=== PATIENT | female | born 1935 | race Caucasian/White ===

== ENCOUNTER 2019-09-27 18:14 | Emergency (ER) | payer OTHER ==
[2019-09-27 19:00] LABS: Urine Bacteria 20-50 /HPF (<20); Urine RBC <5 /HPF (NONE SEEN)
[2019-09-27 19:01] LABS: Urine Amorphous Sediment 1+ /HPF (NONE SEEN); Urine Culture Reflex Order NOT NEEDED
--- NOTE | 2019-09-27 19:28 | EDPHYS ---
Physician Documentation [facility] Name: Kyung Bonilla Age: 83 yrs Sex: Female : 1935 Arrival Date: 09/27/2019 Time: 18:17 Bed 2 Private MD: ED Physician Jone Wise HPI: 09/27 18:33 This 83 yrs old Female presents to ER via Ambulatory with complaints of snw Urinary Problem. 18:33 Onset: The symptoms/episode began/occurred suddenly, 2 day(s) ago, and became snw persistent. Associated signs and symptoms: Pertinent positives: dysuria, Pertinent negatives: abdominal pain, constipation, fever. Modifying factors: The patient symptoms are alleviated by nothing. The patient has not experienced similar symptoms in the past. pt just got out of [facility] for TIA, no urethral instrumentation. pt from [place] but staying in town with her Daughter. Historical: - Allergies: 18:30 No Known Allergies; la1 - PMHx: 18:30 Hypertension; TIA; la1 - Immunization history:: Adult Immunizations up to date. - Social history:: Smoking status: Patient/guardian denies using tobacco. - Ebola Screening: : No symptoms or risks identified at this time. ROS: 18:32 Constitutional: Negative for fever, chills, and weight loss, Eyes: Negative for injury, snw pain, redness, and discharge, ENT: Negative for injury, pain, and discharge, Neck: Negative for injury, pain, and swelling, Cardiovascular: Negative for chest pain, palpitations, and edema, Respiratory: Negative for shortness of breath, cough, wheezing, and pleuritic chest pain, Abdomen/GI: Negative for abdominal pain, nausea, vomiting, diarrhea, and constipation, Back: Negative for injury and pain, MS/Extremity: Negative for injury and deformity, Skin: Negative for injury, rash, and discoloration, Neuro: Negative for headache, weakness, numbness, tingling, and seizure. 18:32 : Positive for urinary symptoms, urinary frequency, small amounts, burning with urination. Exam: 18:32 Constitutional: This is a well developed, well nourished patient who is awake, alert, snw and in no acute distress. Head/Face: Normocephalic, atraumatic. Eyes: Pupils equal round and reactive to light, extra-ocular motions intact. Lids and lashes normal. Conjunctiva and sclera are non-icteric and not injected. Cornea within normal limits. Periorbital areas with no swelling, redness, or edema. ENT: Nares patent. No nasal discharge, no septal abnormalities noted. Tympanic membranes are normal and external auditory canals are clear. Oropharynx with no redness, swelling, or masses, exudates, or evidence of obstruction, uvula midline. Mucous membranes moist. Neck: Trachea midline, no thyromegaly or masses palpated, and no cervical lymphadenopathy. Supple, full range of motion without nuchal rigidity, or vertebral point tenderness. No Meningismus. Chest/axilla: Normal chest wall appearance and motion. Nontender with no deformity. No lesions are appreciated. Cardiovascular: Regular rate and rhythm with a normal S1 and S2. No gallops, murmurs, or rubs. Normal PMI, no JVD. No pulse deficits. Respiratory: Lungs have equal breath sounds bilaterally, clear to auscultation and percussion. No rales, rhonchi or wheezes noted. No increased work of breathing, no retractions or nasal flaring. Abdomen/GI: Soft, non-tender, with normal bowel sounds. No distension or tympany. No guarding or rebound. No evidence of tenderness throughout. Back: No spinal tenderness. No costovertebral tenderness. Full range of motion. Skin: Warm, dry with normal turgor. Normal color with no rashes, no lesions, and no evidence of cellulitis. MS/ Extremity: Pulses equal, no cyanosis. Neurovascular intact. Full, normal range of motion. Neuro: Awake and alert, GCS 15, oriented to person, place, time, and situation. Cranial nerves II-XII grossly intact. Motor strength 5/5 in all extremities. Sensory grossly intact. Cerebellar exam normal. Normal gait. Psych: Awake, alert, with orientation to person, place and time. Behavior, mood, and affect are within normal limits. Vital Signs: 18:30 BP 158 / 86; Pulse 94; Resp 16; Temp 97.7; Pulse Ox 98% on R/A; la1 MDM: 18:35 Patient medically screened. snw 19:43 Data reviewed: vital signs, nurses notes. Data interpreted: Pulse oximetry: on room air snw is 98 %. Interpretation: normal. Counseling: I had a detailed discussion with the patient and/or guardian regarding: the historical points, exam findings, and any diagnostic results supporting the discharge/admit diagnosis, lab results, the need for outpatient follow up, to return to the emergency department if symptoms worsen or persist or if there are any questions or concerns that arise at home. Special discussion: Based on the history and exam findings, there is no indication for further emergent testing or inpatient evaluation. I discussed with the patient/guardian the need to see the primary care provider for further evaluation of the symptoms. 09/27 18:35 Order name: Urine Culture snw 09/27 18:35 Order name: Urine Microscopic Only; Complete Time: 19:26 snw 09/27 18:35 Order name: Urine Dipstick-Ancillary (obtain specimen); Complete Time: 19:29 snw 09/27 19:44 Order name: Urine Dipstick--Ancillary (enter results); Complete Time: 19:54 sp Administered Medications: 19:45 Drug: Rocephin (cefTRIAXone) 1 grams Route: IM; Site: left gluteus; lp1 20:43 Follow up: Response: No adverse reaction lp1 Disposition: 09/28 07:11 Co-signature as Attending Physician, Jone Wise MD. rn Disposition: 09/27/19 19:27 Discharged to Home. Impression: Urinary tract infection, site not specified. - Condition is Stable. - Discharge Instructions: Hypertension, Urinary Tract Infection, Adult, Rehydration, Elderly. - Prescriptions for Augmentin 875- 125 mg Oral Tablet - take 1 tablet by ORAL route every 12 hours for 10 days; 20 tablet. - Medication Reconciliation Form, Thank You Letter, Antibiotic Education, Prescription Opioid Use form. - Follow up: Private Physician; When: 2 - 3 days; Reason: Recheck today's complaints, Continuance of care, Re-evaluation by your physician. Follow up: Emergency Department; When: As needed; Reason: Worsening of condition. Signatures: Dispatcher [employer] EDMS Sadia Maharaj, [employer]-C [employer]-Csnw Jone Wise MD MD rn Pena, Laura, RN RN lp1 Jacob Martinez RN RN la1 Corrections: (The following items were deleted from the chart) 09/27 20:43 19:27 09/27/2019 19:27 Discharged to Home. Impression: Urinary tract infection, site lp1 not specified. Condition is Stable. Forms are Medication Reconciliation Form, Thank You Letter, Antibiotic Education, Prescription Opioid Use. Follow up: Private Physician; When: 2 - 3 days; Reason: Recheck today's complaints, Continuance of care, Re-evaluation by your physician. Follow up: Emergency Department; When: As needed; Reason: Worsening of condition. snw
--- NOTE | 2019-09-27 19:28 | ER ---
Nurse's Notes [facility] Name: Kyung Bonilla Age: 83 yrs Sex: Female : 1935 Arrival Date: 09/27/2019 Time: 18:17 Bed 2 Private MD: Diagnosis: Urinary tract infection, site not specified Presentation: 09/27 18:30 Presenting complaint: Patient states: urinary urgency and lower abd pain. Transition of la1 care: patient was not received from another setting of care. Onset of symptoms was September 27, 2019. Risk Assessment: Do you want to hurt yourself or someone else? Patient reports no desire to harm self or others. Initial Sepsis Screen: Does the patient meet any 2 criteria? No. Patient's initial sepsis screen is negative. Does the patient have a suspected source of infection? No. Patient's initial sepsis screen is negative. Care prior to arrival: None. 18:30 Method Of Arrival: Ambulatory la1 18:30 Acuity: LEONARDO 4 la1 Historical: - Allergies: 18:30 No Known Allergies; la1 - PMHx: 18:30 Hypertension; TIA; la1 - Immunization history:: Adult Immunizations up to date. - Social history:: Smoking status: Patient/guardian denies using tobacco. - Ebola Screening: : No symptoms or risks identified at this time. Screenin:29 Abuse screen: Denies threats or abuse. Denies injuries from another. Nutritional lp1 screening: No deficits noted. Tuberculosis screening: No symptoms or risk factors identified. Fall Risk None identified. Assessment: 19:30 General: Appears in no apparent distress. Behavior is calm, cooperative, appropriate lp1 for age. Pain: Complains of pain in groin and suprapubic area. Neuro: Level of Consciousness is awake, alert, obeys commands, Oriented to person, place, situation. Cardiovascular: Patient's skin is warm and dry. Respiratory: Respiratory effort is even, unlabored. GI: No signs and/or symptoms were reported involving the gastrointestinal system. : Reports burning with urination, pain in suprapubic area with urination, urinary frequency. EENT: No signs and/or symptoms were reported regarding the EENT system. Derm: Skin is pink, warm \T\ dry. Musculoskeletal: No deficits noted. Vital Signs: 18:30 BP 158 / 86; Pulse 94; Resp 16; Temp 97.7; Pulse Ox 98% on R/A; la1 ED Course: 18:17 Patient arrived in ED. as 18:29 Arm band placed on left wrist. la1 18:30 Triage completed. la1 18:32 Sad[facility] Maharaj [facility]C [facility] snw 18:32 Jone Wise MD is Attending Physician. snw 19:29 Fabi Abbasi, RN is Primary Nurse. lp1 19:29 Patient has correct armband on for positive identification. lp1 20:05 No provider procedures requiring assistance completed. Patient did not have IV access lp1 during this emergency room visit. Administered Medications: 19:45 Drug: Rocephin (cefTRIAXone) 1 grams Route: IM; Site: left gluteus; lp1 20:43 Follow up: Response: No adverse reaction lp1 Outcome: 19:27 Discharge ordered by . snw 20:42 Discharged to home ambulatory, with family. lp1 20:42 Condition: good 20:42 Discharge instructions given to patient, family, Instructed on discharge instructions, follow up and referral plans. medication usage, Demonstrated understanding of instructions, follow-up care, medications, Prescriptions given X 1. 20:43 Patient left the ED. lp1 Signatures: Sadia Maharaj FNP-C HEALTH EDUCATION DIRECTOR-CsnMikayla Brown as Fabi Abbasi, RN RN lp1 Jacob Martinez RN RN la1
[2019-09-27] MEDS ORDERED: CEFTRIAXONE 1000 MG/VIAL ONE (19:33)
[2019-09-27] MEDS ORDERED: WATER FOR INJ,STERILE 10 ML ONE (19:33)
[2019-09-27 19:52] LABS: Urine Blood NEGATIVE (NEG); Urine Glucose TRACE (NEG); Urine Protein 1+ (NEG); Urine Specific Gravity 1.015 (1.005-1.030)
[2019-09-27 20:47] VITALS: BP 158/86; TEMP 97.7; O2SAT 98
== END 2019-09-27 20:43 | disposition home or self-care (01) ==
LOC: ER 18:14
DX: N39.0 Urinary tract infection, site not specified (principal)
CPT/HCPCS: 81003; 81015; 87086; 87088; 96372; 99283

== ENCOUNTER 2020-03-26 13:26 | Observation (INO) | payer OTHER ==
[2020-03-26] MEDS ORDERED: NA CHLORIDE 0.9% 0 ML ONE (14:21)
--- NOTE | 2020-03-26 14:29 | RAD REPORT ---
EXAM DESCRIPTION: CT - CTHCSPWOC - 03/26/2020 2:18 pm CLINICAL HISTORY: Trauma, head and neck injury. PAIN COMPARISON: No comparisons TECHNIQUE: Axial 5 mm thick images of the head were obtained. Axial 2 mm thick images of the cervical spine were obtained with sagittal and coronal reconstruction images generated and reviewed. All CT scans are performed using dose optimization technique as appropriate and may include automated exposure control or mA/KV adjustment according to patient size. FINDINGS: CT HEAD WITHOUT CONTRAST: No acute hemorrhage, hydrocephalus or extra-axial collection is identified.Mild generalized brain atr ophy is present with moderate periventricular and deep white matter chronic microvascular ischemic ch anges.No areas of brain edema or midline shift. The paranasal sinuses and mastoids are clear.The calvarium is intact. CT CERVICAL SPINE WITHOUT CONTRAST: No fracture or subluxation.Prominent spondylosis is seen at C5-6 with large posterior osteophytes.No prevertebral soft tissues swelling is identified. IMPRESSION: No acute intracranial or cervical spine findings.
--- NOTE | 2020-03-26 14:34 | RAD REPORT ---
EXAM DESCRIPTION: RAD - Chest Single View - 03/26/2020 2:29 pm CLINICAL HISTORY: COUGH Chest pain. COMPARISON: No comparisons FINDINGS: Portable technique limits examination quality. Mild elevation of right hemidiaphragm is seen without clear etiology. Lungs are grossly clear. The he art is normal in size. No displaced fractures.
[2020-03-26 15:21] LABS: Absolute Lymphocytes (CBC) 1.2 K/uL (0.7-4.9); Basophils % 0.3 % (0-1.3); Hematocrit 45.3 % (36.0-45.0); Lymphocytes % 6.4 % (15.3-44.8); MPV 7.9 fL (7.6-11.3); RBC Red Blood Cell Count 5.67 M/uL (3.86-4.86)
[2020-03-26 15:34] LABS: ALT/SGPT 23 U/L (12-78); AST/SGOT 14 U/L (15-37); Alkaline Phosphatase 62 U/L (45-117); BUN Blood Urea Nitrogen 24 mg/dL (7-18); Bicarbonate 28 mmol/L (21-32); Bilirubin Direct 0.3 mg/dL (0-0.2); Bilirubin Total 0.7 mg/dL (0.2-1.0); Glucose Level 134 mg/dL (74-106); NT PRO-BNP 235 pg/mL (<450); Protein, Total 8.3 g/dL (6.4-8.2); Sodium Level 136 mmol/L (136-145); Troponin (Emerg Dept Use Only) < 0.02 ng/mL (0.0-0.045)
--- NOTE | 2020-03-26 16:26 | ER ---
Nurse's Notes [facility] Name: Kyung Bonilla Age: 84 yrs Sex: Female : 1935 Arrival Date: 03/26/2020 Time: 13:28 Bed 14 Private MD: Diagnosis: Syncope and collapse;Hypokalemia;Unspecified kidney failure;Elevated white blood cell count;Urinary tract infection, site not specified;Major depressive disorder, recurrent- 2 weeks Presentation: 03/26 13:29 Chief complaint: Patient states: Passed out while using restroom just [employer] WORK[employer]. Had TIA in ll27 August. Coronavirus screen: Proceed with normal triage. Patient denies a cough. Patient denies shortness of breath or difficulty breathing. Patient denies measured and/or subjective temperature greater than 100.4F prior to today's visit. Patient denies travel on a cruise ship or to a country the [facility] currently lists as an affected area. Ebola Screen: Patient denies travel to an Ebola-affected area in the 21 days before illness onset. Initial Sepsis Screen: Does the patient meet any 2 criteria? Altered Mental Status. No. Patient's initial sepsis screen is negative. Does the patient have a suspected source of infection? No. Patient's initial sepsis screen is negative. Risk Assessment: Do you want to hurt yourself or someone else? Patient reports no desire to harm self or others. Onset of symptoms was March 26, 2020. 13:29 Method Of Arrival: EMS: [facility] 13:29 Acuity: LEONARDO 3 1 14:00 Care prior to arrival: None. Mechanism of Injury: Fall from commode. Trauma event vc details: Injury occurred in the [facility]. Triage Assessment: 14:00 General: Appears in no apparent distress. uncomfortable, Behavior is calm, cooperative, vc appropriate for age. Pain: Complains of pain in neck. 14:00 EENT:. vc Historical: - Allergies: 13:32 No Known Allergies; ll1 - PMHx: 13:32 TIA; Hypertension; Dementia; ll1 - Immunization history:: Adult Immunizations up to date. - Social history:: Patient/guardian denies using alcohol, street drugs, tobacco products, Smoking status: Patient denies any tobacco usage or history of. Screenin:33 Abuse screen: Denies threats or abuse. Nutritional screening: No deficits noted. ll1 Tuberculosis screening: No symptoms or risk factors identified. Fall Risk Fall in past 12 months (25 points). Secondary diagnosis (15 points) dementia, IV access (20 points). Gait- Impaired (20 pts.). Mental Status- Overestimates/Forgets Limitations (15 pts.). Total Cohen Fall Scale indicates High Risk Score (45 or more points). Fall prevention measures have been instituted. Side Rails Up X 2 Placed Close to Nursing Station Frequent Obs/Assessments Occuring As available patient and family educated on Fall Prevention Program and Strategies. Primary Survey: 13:34 NO uncontrolled hemorrhage observed. A: The patient is alert. Airway: patent. ll1 Breathing/Chest: Respiratory pattern: regular, Respiratory effort: spontaneous, unlabored. Circulation: Pulses: palpable right radial artery and left radial artery. Skin color: pink, Skin temperature: warm, dry. Disability Alert. Exposure/Environment: A warming method has been applied: A warm blanket has been provided to the patient. 14:00 Reassessment Breathing/Chest Respiratory pattern Regular Respiratory effort Spontaneous vc Breath sounds Clear Chest inspection Symmetrical Circulation Heart rhythm Sinus rhythm Temperature Warm. Assessment: 14:00 General: Appears in no apparent distress. uncomfortable, Behavior is cooperative, vc anxious. Pain: Complains of pain in neck. Neuro: Level of Consciousness is awake, alert, obeys commands, Oriented to person, place. Cardiovascular: Patient's skin is warm and dry. Respiratory: Airway is patent Respiratory effort is even, unlabored, Respiratory pattern is regular, symmetrical. : Urine is cloudy, Vaginal discharge is white, Reports discharge, urinary frequency. EENT: No signs and/or symptoms were reported regarding the EENT system. Derm: Bruising that is dark purple. 14:13 Reassessment: Patient to CT via stretcher. vc 15:00 Reassessment: Patient appears in no apparent distress at this time. Patient and/or vc family updated on plan of care and expected duration. Pain level reassessed. 16:00 Reassessment: Patient appears in no apparent distress at this time. Patient and/or vc family updated on plan of care and expected duration. Pain level reassessed. Patient is alert, oriented x 3, equal unlabored respirations, skin warm/dry/pink. Son states he would like mother to stay the night for observation if able to. 17:00 Reassessment: Patient appears in no apparent distress at this time. Patient and/or vc family updated on plan of care and expected duration. Pain level reassessed. Patient is alert, oriented x 3, equal unlabored respirations, skin warm/dry/pink. Patient denies pain at this time. 18:00 Reassessment: Patient appears in no apparent distress at this time. Patient and/or vc family updated on plan of care and expected duration. Pain level reassessed. Patient is alert, oriented x 3, equal unlabored respirations, skin warm/dry/pink. Patient denies pain at this time. 19:00 Reassessment: Patient appears in no apparent distress at this time. Patient and/or vc family updated on plan of care and expected duration. Pain level reassessed. Patient is alert, oriented x 3, equal unlabored respirations, skin warm/dry/pink. Patient laying with eyes closed, resting comfortably. Patient denies pain at this time. 20:00 Reassessment: Patient appears in no apparent distress at this time. Patient and/or vc family updated on plan of care and expected duration. Pain level reassessed. Patient is alert, oriented x 3, equal unlabored respirations, skin warm/dry/pink. Patient denies pain at this time. 21:00 Reassessment: Patient appears in no apparent distress at this time. Patient and/or vc family updated on plan of care and expected duration. Pain level reassessed. Patient is alert, oriented x 3, equal unlabored respirations, skin warm/dry/pink. Patient denies pain at this time. Patient states feeling better. Vital Signs: 13:29 BP 120 / 60; Pulse 63; Resp 18; Temp 97.8; Pulse Ox 95% ; Pain 0/10; ll1 14:30 BP 121 / 58; Pulse 64; Resp 17; Pulse Ox 95% on R/A; vc 15:30 BP 128 / 56; Pulse 59; Resp 16; Pulse Ox 96% ; vc 17:51 BP 141 / 61 Supine; Pulse 65; Resp 17; Pulse Ox 97% on R/A; vc 17:53 BP 127 / 61 Sitting; Pulse 78; Resp 17; Pulse Ox 97% on R/A; vc 17:55 BP 114 / 66 Standing; Pulse 94; Resp 16; Pulse Ox 93% on R/A; vc 18:30 BP 129 / 58; Pulse 72; Resp 16; Pulse Ox 96% on R/A; vc 19:30 BP 136 / 73; Pulse 72; Resp 17; Pulse Ox 96% on R/A; vc [place] Coma Score: 13:34 Eye Response: spontaneous(4). Verbal Response: oriented(5). Motor Response: obeys ll1 commands(6). Total: 15. Trauma Score (Adult): 13:34 Eye Response: spontaneous(1); Verbal Response: oriented(1); Motor Response: obeys ll1 commands(2); Systolic BP: > 89 mm Hg(4); Respiratory Rate: 10 to 29 per min(4); Rafael Score: 15; Trauma Score: 12 NIH Stroke Scale Scores: 15:41 NIHSS Score: 0 christopher ED Course: 13:28 Patient arrived in ED. ll1 13:30 Kartik Pichardo MD is Attending Physician. christopher 13:31 Triage completed. ll1 13:32 Arm band placed on Patient placed in an exam room, on a stretcher. ll1 13:35 Patient has correct armband on for positive identification. Bed in low position. Call ll1 light in reach. Side rails up X2. Pulse ox on. NIBP on. 14:04 Chanelle Eastman RN is Primary Nurse. vc 14:17 CT Head C Spine: syncope , fall off the toilet, headache, neck In Process Unspecified. EDMS 14:29 XRAY Chest (1 view) In Process Unspecified. EDMS 14:30 Thermoregulation: warm blanket given to patient. vc 15:10 Inserted saline lock: 22 gauge in right antecubital area, using aseptic technique. hb Blood collected. 15:53 Patient maintains SpO2 saturation greater than 95% on room air. vc 16:24 Janette Joyner MD is Hospitalizing Provider. christopher 21:00 No provider procedures requiring assistance completed. Patient admitted, IV remains in vc place. Administered Medications: 15:11 Drug: NS 0.9% 500 ml Route: IV; Rate: bolus; Site: right antecubital; vc 16:39 Follow up: Response: No adverse reaction; RASS: Alert and Calm (0); IV Status: ll1 Completed infusion; IV Intake: 500ml 16:39 Drug: Potassium Effervescent Tablet 50 mEq Route: PO; ll1 19:41 Follow up: Response: No adverse reaction vc 16:40 Drug: NS 0.9% 1000 ml Route: IV; Rate: 125 ml/hr; Site: right antecubital; ll1 16:40 Drug: Rocephin 1 grams Route: IV; Rate: per protocol; Site: right antecubital; ll1 16:45 Follow up: IV Status: Completed infusion; IV Intake: 10ml vc 17:09 Drug: NS 0.9% 500 ml Route: IV; Rate: bolus; Site: right antecubital; vc 17:39 Follow up: IV Status: Completed infusion; IV Intake: 500ml vc 18:10 Drug: Aspirin 81 mg Route: PO; vc 19:43 Follow up: Response: No adverse reaction vc 18:13 Drug: foLIC Acid 1 mg Route: IVPB; Site: right antecubital; vc 19:13 Follow up: IV Status: Completed infusion; IV Intake: 100ml vc Intake: 16:39 IV: 500ml; Total: 500ml. ll1 16:45 IV: 10ml; Total: 510ml. vc 17:39 IV: 500ml; Total: 1010ml. vc 19:13 IV: 100ml; Total: 1110ml. vc Outcome: 16:25 Decision to Hospitalize by Provider. christopher 21:00 Admitted to Med/surg accompanied by tech. vc 21:00 Condition: good 21:00 Instructed on the need for admit. vc 21:03 Patient left the ED. vc NIH Stroke Scale - NIH Stroke Score Date: 03/26/2020 Time: 15:41 Total Score = 0 1a. Level of Consciousness (LOC) - 0(Alert) 1b. Level of Consciousness (LOC) (Year \T\ Age) - 0(Both) 1c. LOC Commands (Open \T\ Closes Eyes/Vacuum Closing Machine Operator) - 0(Both) 2. Best Gaze (Lateral Gaze Paresis) - 0(Normal) 3. Visual Field Loss - 0(No visual loss) 4. Facial Palsy - 0(Normal) 5a. Left Arm: Motor (10-second hold) - 0(No drift) 5b. Right Arm: Motor (10-second hold) - 0(No drift) 6a. Left Leg: Motor (5-second hold - always test supine) - 0(No drift) 6b. Right Leg: Motor (5-second hold - always test supine) - 0(No drift) 7. Limb Ataxia (finger/nose \T\ heel/dill - test with eyes open) - 0(Absent) 8. Sensory Loss (pinprick arms/legs/face) - 0(Normal) 9. Best Language: Aphasia (description/naming/reading) - 0(No aphasia) 10. Dysarthria (speech clarity - read or repeat words) - 0(Normal) 11. Extinction and Inattention (visual/tactile/auditory/spatial/personal) - 0(No abnormality) Initials: christopher Signatures: Dispatcher [employer] EDKartik Fall MD MD cha Baxter, Heather, RN RN Chanelle Matute RN RN vc Lewis, Lynsay, RN RN ll1
--- NOTE | 2020-03-26 16:27 | EDPHYS ---
Physician Documentation [facility] Name: Kyung Bonilla Age: 84 yrs Sex: Female : 1935 Arrival Date: 03/26/2020 Time: 13:28 Bed 14 Private MD: ED Physician Kartik Pichardo HPI: 03/26 14:01 This 84 yrs old Female presents to ER via EMS with complaints of Fall Injury. [facility] 14:01 Details of fall: The patient fell from a height, off furniture, approximately 3 feet, christopher from seated position, out of a chair. Onset: The symptoms/episode began/occurred just prior to arrival. Associated injuries: The patient sustained injury to the head, neck injury. Severity of symptoms: At their worst the symptoms were mild, in the emergency department the symptoms are unchanged. The patient has experienced similar episodes in the past, a few times. Historical: - Allergies: 13:32 No Known Allergies; ll1 - PMHx: 13:32 TIA; Hypertension; Dementia; ll1 - Immunization history:: Adult Immunizations up to date. - Social history:: Patient/guardian denies using alcohol, street drugs, tobacco products, Smoking status: Patient denies any tobacco usage or history of. ROS: 14:02 Constitutional: Negative for fever, chills, and weight loss, Eyes: Negative for injury, christopher pain, redness, and discharge, ENT: Negative for injury, pain, and discharge, Cardiovascular: Negative for chest pain, palpitations, and edema, Respiratory: Negative for shortness of breath, cough, wheezing, and pleuritic chest pain, Abdomen/GI: Negative for abdominal pain, nausea, vomiting, diarrhea, and constipation, Back: Negative for injury and pain, : Negative for injury, bleeding, discharge, and swelling, MS/Extremity: Negative for injury and deformity, Skin: Negative for injury, rash, and discoloration, Neuro: Negative for headache, weakness, numbness, tingling, and seizure, Psych: Negative for depression, anxiety, suicide ideation, homicidal ideation, and hallucinations, Allergy/Immunology: Negative for hives, rash, and allergies, Endocrine: Negative for neck swelling, polydipsia, polyuria, polyphagia, and marked weight changes, Hematologic/Lymphatic: Negative for swollen nodes, abnormal bleeding, and unusual bruising. 14:02 Neck: Positive for pain with movement. Exam: 14:02 Constitutional: This is a well developed, well nourished patient who is awake, alert, christopher and in no acute distress. Head/Face: Normocephalic, atraumatic. Eyes: Pupils equal round and reactive to light, extra-ocular motions intact. Lids and lashes normal. Conjunctiva and sclera are non-icteric and not injected. Cornea within normal limits. Periorbital areas with no swelling, redness, or edema. ENT: Nares patent. No nasal discharge, no septal abnormalities noted. Tympanic membranes are normal and external auditory canals are clear. Oropharynx with no redness, swelling, or masses, exudates, or evidence of obstruction, uvula midline. Mucous membranes moist. Neck: Trachea midline, no thyromegaly or masses palpated, and no cervical lymphadenopathy. Supple, full range of motion without nuchal rigidity, or vertebral point tenderness. No Meningismus. Chest/axilla: Normal chest wall appearance and motion. Nontender with no deformity. No lesions are appreciated. Cardiovascular: Regular rate and rhythm with a normal S1 and S2. No gallops, murmurs, or rubs. Normal PMI, no JVD. No pulse deficits. Respiratory: Lungs have equal breath sounds bilaterally, clear to auscultation and percussion. No rales, rhonchi or wheezes noted. No increased work of breathing, no retractions or nasal flaring. Abdomen/GI: Soft, non-tender, with normal bowel sounds. No distension or tympany. No guarding or rebound. No evidence of tenderness throughout. Back: No spinal tenderness. No costovertebral tenderness. Full range of motion. Female : Normal external genitalia. Skin: Warm, dry with normal turgor. Normal color with no rashes, no lesions, and no evidence of cellulitis. MS/ Extremity: Pulses equal, no cyanosis. Neurovascular intact. Full, normal range of motion. Neuro: Awake and alert, GCS 15, oriented to person, place, time, and situation. Cranial nerves II-XII grossly intact. Motor strength 5/5 in all extremities. Sensory grossly intact. Cerebellar exam normal. Normal gait. Psych: Awake, alert, with orientation to person, place and time. Behavior, mood, and affect are within normal limits. 14:02 Neuro: Orientation: is normal, appropriate for stated age, no acute changes, Mentation: is normal, appropriate for stated age, no acute changes, Memory: is normal, appropriate for stated age, no acute changes, Cranial nerves: grossly normal, is grossly normal based on the patient's age, no acute changes, Cerebellar function: is grossly normal, is grossly normal based on the patient's age, no acute changes, Motor: is normal, is grossly normal based on the patient's age, no acute changes, moves all fours, Sensation: no obvious gross deficits, appropriate no acute changes, Gait: not applicable seizure activity, is not displayed by the patient. 14:05 Neck: External neck: is normal, no acute changes, Thyroid: appears normal, christopher ROM/movement: is normal, Lymph nodes: no appreciated lymphadenopathy, no bruits. 14:40 ECG was reviewed by the Attending Physician. christopher 15:41 Musculoskeletal/extremity: DVT Exam: No signs of deep vein thrombosis. no pain, no christopher swelling, no tenderness, negative Homans' sign noted on exam, no appreciated bluish discoloration, no erythema, no increased warmth. Vital Signs: 13:29 BP 120 / 60; Pulse 63; Resp 18; Temp 97.8; Pulse Ox 95% ; Pain 0/10; ll1 14:30 BP 121 / 58; Pulse 64; Resp 17; Pulse Ox 95% on R/A; vc 15:30 BP 128 / 56; Pulse 59; Resp 16; Pulse Ox 96% ; vc 17:51 BP 141 / 61 Supine; Pulse 65; Resp 17; Pulse Ox 97% on R/A; vc 17:53 BP 127 / 61 Sitting; Pulse 78; Resp 17; Pulse Ox 97% on R/A; vc 17:55 BP 114 / 66 Standing; Pulse 94; Resp 16; Pulse Ox 93% on R/A; vc 18:30 BP 129 / 58; Pulse 72; Resp 16; Pulse Ox 96% on R/A; vc 19:30 BP 136 / 73; Pulse 72; Resp 17; Pulse Ox 96% on R/A; vc NIH Stroke Scale Scores: 15:41 NIHSS Score: 0 christopher [place] Coma Score: 13:34 Eye Response: spontaneous(4). Verbal Response: oriented(5). Motor Response: obeys ll1 commands(6). Total: 15. Trauma Score (Adult): 13:34 Eye Response: spontaneous(1); Verbal Response: oriented(1); Motor Response: obeys ll1 commands(2); Systolic BP: > 89 mm Hg(4); Respiratory Rate: 10 to 29 per min(4); Rafael Score: 15; Trauma Score: 12 MDM: 13:30 Patient medically screened. [facility] 14:03 Data reviewed: vital signs, nurses notes, lab test result(s), EKG, radiologic studies, [facility] CT scan, plain films. 14:04 Differential diagnosis: closed head injury, fracture, sprain, strain, cardiac christopher arrhythmia, cerebrovascular accident, GI bleed, seizure, transient ischemic attack, vasovagal episode. 14:04 Data interpreted: monitoring specialist: rate is 63 beats/min, Pulse oximetry: on 2L(s) per [facility] nasal canula, is 95 %. 14:05 Test interpretation: by ED physician or midlevel provider: ECG, plain radiologic [facility] studies. Counseling: I had a detailed discussion with the patient and/or guardian regarding: the historical points, exam findings, and any diagnostic results supporting the discharge/admit diagnosis, lab results, radiology results, the need for outpatient follow up. 03/26 14:00 Order name: Basic Metabolic Panel; Complete Time: 15:39 [facility] 03/26 14:00 Order name: CBC with Diff; Complete Time: 15:28 [facility] 03/26 14:00 Order name: LFT's; Complete Time: 15:39 [facility] 03/26 14:00 Order name: Magnesium; Complete Time: 15:39 [facility] 03/26 14:00 Order name: NT PRO-BNP; Complete Time: 15:39 [facility] 03/26 14:00 Order name: Troponin (emerg Dept Use Only); Complete Time: 15:39 [facility] 03/26 16:24 Order name: Urine Dipstick--Ancillary (enter results); Complete Time: 19:18 em1 03/26 18:51 Order name: CBC with Automated Diff EDMS 03/26 18:51 Order name: CBC with Automated Diff EDMS 03/26 18:51 Order name: Comprehensive Metabolic Panel EDMS 03/26 18:51 Order name: Comprehensive Metabolic Panel EDMS 03/26 18:51 Order name: Troponin I EDMS 03/26 18:51 Order name: Troponin I EDMS 03/26 18:51 Order name: Troponin I EDMS 03/26 14:00 Order name: XRAY Chest (1 view); Complete Time: 14:39 [facility] 03/26 14:00 Order name: EKG; Complete Time: 14:01 [facility] 03/26 14:00 Order name: CT Head C Spine: syncope , fall off the toilet, headache, neck; Complete [facility] Time: 14:39 03/26 17:39 Order name: Diet Heart Healthy; Complete Time: 17:41 [facility] 03/26 18:46 Order name: Social Service Consult [facility] 03/26 18:53 Order name: Echo with Doppler [facility] 03/26 18:53 Order name: Thyroid Stimulating Hormone [facility] 03/26 18:53 Order name: Magnesium [facility] 03/26 18:53 Order name: Carotid Artery Bilateral [facility] 03/26 14:00 Order name: Cardiac monitoring; Complete Time: 15:27 [facility] 03/26 14:00 Order name: EKG - Nurse/Tech; Complete Time: 15:27 [facility] 03/26 14:00 Order name: IV Saline Lock; Complete Time: 15:27 [facility] 03/26 14:00 Order name: Labs collected and sent; Complete Time: 15:28 [facility] 03/26 14:00 Order name: O2 Per Protocol; Complete Time: 15:28 [facility] 03/26 14:00 Order name: O2 Sat Monitoring; Complete Time: 15:28 [facility] 03/26 15:31 Order name: Urine Dipstick-Ancillary (obtain specimen); Complete Time: 16:23 [facility] 03/26 16:27 Order name: Orthostatics; Complete Time: 18:10 [facility] 03/26 18:51 Order name: CONS Pharmacy Consult [facility] 03/26 18:53 Order name: CONS Pharmacy Consult [facility] 03/26 18:53 Order name: CONS Physician Consult [facility] 03/26 18:53 Order name: Occupational Therapy Consult [facility] 03/26 18:53 Order name: Physical Therapy Consult [facility] EC:40 Rate is 70 beats/min. QRS [place] is Normal. MT interval is normal. QRS interval is christopher normal. QT interval is normal. No Q waves. T waves are Normal. No ST changes noted. Clinical impression: NSR w/ Non-specific ST/T Changes. Interpreted by me. Reviewed by me. Administered Medications: 15:11 Drug: NS 0.9% 500 ml Route: IV; Rate: bolus; Site: right antecubital; vc 16:39 Follow up: Response: No adverse reaction; RASS: Alert and Calm (0); IV Status: ll1 Completed infusion; IV Intake: 500ml 16:39 Drug: Potassium Effervescent Tablet 50 mEq Route: PO; ll1 19:41 Follow up: Response: No adverse reaction vc 16:40 Drug: NS 0.9% 1000 ml Route: IV; Rate: 125 ml/hr; Site: right antecubital; ll1 16:40 Drug: Rocephin 1 grams Route: IV; Rate: per protocol; Site: right antecubital; ll1 16:45 Follow up: IV Status: Completed infusion; IV Intake: 10ml vc 17:09 Drug: NS 0.9% 500 ml Route: IV; Rate: bolus; Site: right antecubital; vc 17:39 Follow up: IV Status: Completed infusion; IV Intake: 500ml vc 18:10 Drug: Aspirin 81 mg Route: PO; vc 19:43 Follow up: Response: No adverse reaction vc 18:13 Drug: foLIC Acid 1 mg Route: IVPB; Site: right antecubital; vc 19:13 Follow up: IV Status: Completed infusion; IV Intake: 100ml vc Disposition: 03/26/20 16:25 Hospitalization ordered by Janette Joyner for Observation. Preliminary diagnosis are Syncope and collapse, Hypokalemia, Unspecified kidney failure, Elevated white blood cell count, Urinary tract infection, site not specified, Major depressive disorder, recurrent - 2 weeks. - Bed requested for Telemetry/MedSurg (observation). - Status is Observation. vc - Condition is Fair. - Problem is new. - Symptoms have improved. NIH Stroke Scale - NIH Stroke Score Date: 03/26/2020 Time: 15:41 Total Score = 0 1a. Level of Consciousness (LOC) - 0(Alert) 1b. Level of Consciousness (LOC) (Year \T\ Age) - 0(Both) 1c. LOC Commands (Open \T\ Closes Eyes/Installer Soft Top) - 0(Both) 2. Best Gaze (Lateral Gaze Paresis) - 0(Normal) 3. Visual Field Loss - 0(No visual loss) 4. Facial Palsy - 0(Normal) 5a. Left Arm: Motor (10-second hold) - 0(No drift) 5b. Right Arm: Motor (10-second hold) - 0(No drift) 6a. Left Leg: Motor (5-second hold - always test supine) - 0(No drift) 6b. Right Leg: Motor (5-second hold - always test supine) - 0(No drift) 7. Limb Ataxia (finger/nose \T\ heel/dill - test with eyes open) - 0(Absent) 8. Sensory Loss (pinprick arms/legs/face) - 0(Normal) 9. Best Language: Aphasia (description/naming/reading) - 0(No aphasia) 10. Dysarthria (speech clarity - read or repeat words) - 0(Normal) 11. Extinction and Inattention (visual/tactile/auditory/spatial/personal) - 0(No abnormality) Initials: christopher Signatures: Dispatcher [employer] EDKartik Fall MD MD cha Martinez, Eric em1 Coreen Prasad RN RN cg Chanelle Eastman RN RN vc Lewis, Lynsay, RN RN ll1 Corrections: (The following items were deleted from the chart) 16:27 16:25 Hospitalization Ordered by Janette Joyner MD for Observation. Preliminary christopher diagnosis is Syncope and collapse; Hypokalemia; Unspecified kidney failure; Elevated white blood cell count; Urinary tract infection, site not specified. Bed requested for Telemetry/MedSurg (observation). Status is Observation. Condition is Fair. Problem is new. Symptoms have improved. christopher 19:27 16:27 03/26/2020 16:25 Hospitalization Ordered by Janette Joyner MD for cg Observation. Preliminary diagnosis is Syncope and collapse; Hypokalemia; Unspecified kidney failure; Elevated white blood cell count; Urinary tract infection, site not specified; Major depressive disorder, recurrent - 2 weeks. Bed requested for Telemetry/MedSurg (observation). Status is Observation. Condition is Fair. Problem is new. Symptoms have improved. christopher 21:03 19:27 03/26/2020 16:25 Hospitalization Ordered by Janette Joyner MD for vc Observation. Preliminary diagnosis is Syncope and collapse; Hypokalemia; Unspecified kidney failure; Elevated white blood cell count; Urinary tract infection, site not specified; Major depressive disorder, recurrent - 2 weeks. Bed requested for Telemetry/MedSurg (observation). Status is Observation. Condition is Fair. Problem is new. Symptoms have improved. cg
[2020-03-26] MEDS ORDERED: POTASSIUM 25 MEQ EFFERV TAB ONE (16:33)
[2020-03-26] MEDS ORDERED: NA CHLORIDE 0.9% 1,000 ML ONE (16:34)
[2020-03-26] MEDS ORDERED: CEFTRIAXONE/SWI 1gm 1 GM/10 ML SYR ONE (16:35)
[2020-03-26 17:35] LABS: Urine Blood NEGATIVE (NEG); Urine Glucose NEGATIVE (NEG); Urine Protein NEGATIVE (NEG); Urine pH 5.5 (5.0-7.0)
[2020-03-26] MEDS ORDERED: ASPIRIN 81 MG CHEWABLE TABLET ONE (17:47)
[2020-03-26] MEDS ORDERED: NA CHLORIDE 0.9% 500 ML ONE ×2 (17:47→17:49)
[2020-03-26] MEDS ORDERED: FOLIC ACID 5 MG/ML VIAL ONE (17:48)
[2020-03-26] MEDS ORDERED: NA CHLORIDE 0.9% 100 ML IV ONE (17:48)
--- NOTE | 2020-03-26 18:40 | P.HP ---
Certification for Inpatient Patient admitted to: Inpatient With expected LOS: >2 Midnights Patient will require the following post-hospital care: Half-Way Practitioner: I am a practitioner with admitting privileges, knowledge of patient current condition, hospital course, and medical plan of care. Services: Services provided to patient in accordance with Admission requirements found in Title 42 Section 412.3 of the Code of Federal Regulations Patient History Date of Service: 03/26/20 Reason for admission: Presumed syncope History of Present Illness: 84-year-old female with past medical history of HTN, diabetes mellitus on metformin, history of dementia, hyperlipidemia, and no previous cardiac or CV event except for presumed TIA 3 years ago, history of recurrent UTI last episode was 3 months ago, recent progressive depression with decreased p.o. intake, increased sleepiness, started by her PCP and neurologist on Zoloft 1 week ago, dependent on activities of daily living with care from son for she lives with. Son has noticed patient became lethargic after being helped to the bathroom today patient's son this patient's son has gone in to check on patient her lab noted patient IPS launch he has tried to help patient get up but he states patient was able to pull up her brief by herself. He did need patient sit down again to continue voiding and on turning around he noticed patient has fallen from the toilet seat to the ground. He felt patient had a syncope for less than 5 seconds but was able to get patient back up. He brought patient into the ED for rule out possible stroke. Head CT in the ED was negative. Patient blood pressure was noted with systolic in the 120s but did dropped to 100 on sitting up. Patient has recently lost her spouse 2 months ago and has been very depressed since then hence started on Zoloft 1 week ago. He states patient has not had any diarrhea or vomiting or increase urination. Patient is awake and conversant. She argues and denies most of the things her son was reporting. She denies any symptoms at this time except saying she would like to have something to eat. Home medications list reviewed: No - Past Medical/Surgical History Has patient received pneumonia vaccine in the past: No Diabetic: Yes -: Hypertension -: Diabetes mellitus -: advanced dementia -: Hyperlipidemia -: Recurrent UTIs Past Surgical History: Patient denies surgical history - Family History Family History: Reviewed- Non-Contributory - Social History Smoking Status: Never smoker Alcohol use: No CD- Drugs: No Caffeine use: No Place of Residence: Home Review of Systems is unable to be obtained (Due to dementia, and denies every other same) Physical Examination - Physical Exam General: Alert, In no apparent distress, Oriented x2, Cooperative HEENT: Atraumatic, Normocephalic, PERRLA Neck: Supple, 2+ carotid pulse no bruit Respiratory: Clear to auscultation bilaterally, Normal air movement Cardiovascular: Normal pulses, Regular rate/rhythm, Normal S1 S2 Gastrointestinal: Normal bowel sounds, Soft and benign, Non-distended Musculoskeletal: No clubbing, No swelling Integumentary: No rashes, No breakdown Neurological: Normal speech, Normal strength at 5/5 x4 extr, Normal tone, Cranial nerves 3-12 intact - Studies Laboratory Data (last 24 hrs) 03/26/20 15:08: WBC 19.3 H, Hgb 15.5 H, Hct 45.3 H, Plt Count 343 03/26/20 15:08: Sodium 136, Potassium 3.0 L, BUN 24 H, Creatinine 1.62 H, Glucose 134 H, Magnesium 2.0, Total Bilirubin 0.7, AST 14 L, ALT 23, Alkaline Phosphatase 62 Imagings Data: N Head/cervical CT COMPARISON: No comparisons TECHNIQUE: Axial 5 mm thick images of the head were obtained. Axial 2 mm thick images of the cervical spine were obtained with sagittal and coronal reconstruction images generated and reviewed. All CT scans are performed using dose optimization technique as appropriate and may include automated exposure control or mA/KV adjustment according to patient size. FINDINGS: CT HEAD WITHOUT CONTRAST: No acute hemorrhage, hydrocephalus or extra-axial collection is identified.Mild generalized brain atrophy is present with moderate periventricular and deep white matter chronic microvascular ischemic changes.No areas of brain edema or midline shift. The paranasal sinuses and mastoids are clear.The calvarium is intact. CT CERVICAL SPINE WITHOUT CONTRAST: No fracture or subluxation.Prominent spondylosis is seen at C5-6 with large posterior osteophytes.No prevertebral soft tissues swelling is identified. IMPRESSION: No acute intracranial or cervical spine findings. Chest x-ray reviewed by me-no acute lung infiltrate, right hemidiaphragm noted EKG-normal sinus reading, 61 beats per min. No ST segment changes Assessment and Plan - Problems (Diagnosis) (1) Vasovagal near syncope Current Visit: Yes Status: Acute (2) Orthostatic hypotension Current Visit: Yes Status: Acute (3) Diabetes mellitus Current Visit: Yes Status: Acute (4) Depression Current Visit: Yes Status: Acute (5) Dementia Current Visit: Yes Status: Acute (6) Hypertension Current Visit: Yes Status: Acute - Advance Directives Does patient have a Living Will: No Does patient have a Durable POA for Healthcare: No Physician Review: Patient Assessed, Agree with Above Assessment and Plan Physician Review Additional Text: Presumed syncope/near syncope-on care etiology may be due to orthostatics symptoms -start gentle IV fluid hydration. -hold blood pressure medication including losartan and hydrochlorothiazide for now. -follow orthostatic vitals in a.m. -will obtain carotid ultrasound to rule out stenosis -will obtain echocardiogram if persistent symptoms -obtain PT and OT Depression with anorexia, on Zoloft -we add Remeron q.h.s. to improve appetite Hypertension-monitor off for now, hold blood pressure medications Acute renal failure likely due to volume depletion and blood pressure issues -follow with hold off blood pressure medication and IV hydration -if blood pressure remained elevated IV hydralazine p.r.n. -will consult Nephrology to follow-up - random urine sodium and creatinine Advanced directive discuss, patient states patient does not have a living will, we want to leave full code for now Dementia-continue Namenda, DVT prophylaxis-subcutaneous heparin Time Spent Managing Pts Care (In Minutes): 65
[2020-03-26] MEDS ORDERED: ONDANSETRON 4 MG/2 ML VIAL IV PRN (18:46)
[2020-03-26] MEDS ORDERED: MORPHINE 2 MG/ML SYR IV PRN (18:46)
[2020-03-26] MEDS ORDERED: LORAZEPAM 0.5 MG TABLET PO PRN (18:50)
[2020-03-26] MEDS: INSULIN -REGULAR HUMAN 50 UNIT/0.5 ML ML SQ SCH (21:00)
[2020-03-26 21:17] VITALS: BMI 28.8
[2020-03-26] MEDS: HEPARIN 5000 UNIT/ML 1 ML VIAL SQ SCH (21:53)
[2020-03-26] MEDS: MIRTAZAPINE 15 MG TAB PO SCH (21:53)
[2020-03-26] MEDS: Ringers Lactate 1,000 ML IV SCH (21:53)
[2020-03-26 22:31] LABS: Magnesium 1.8 mg/dL (1.8-2.4); Troponin I < 0.02 ng/mL (0.0-0.045)
[2020-03-27] MEDS ORDERED: MELATONIN 5 MG TABLET PO ONE (00:55)
[2020-03-27] MEDS: Ringers Lactate 1,000 ML IV SCH ×3 (05:00→19:54)
[2020-03-27 05:58] LABS: Absolute Lymphocytes (CBC) 1.3 K/uL (0.7-4.9); Basophils % 0.8 % (0-1.3); Hematocrit 38.1 % (36.0-45.0); Lymphocytes % 15.7 % (15.3-44.8); MPV 8.2 fL (7.6-11.3); RBC Red Blood Cell Count 4.81 M/uL (3.86-4.86)
[2020-03-27 06:23] LABS: Albumin 3.2 g/dL (3.4-5.0); Bilirubin Total 0.5 mg/dL (0.2-1.0); Protein, Total 6.7 g/dL (6.4-8.2)
[2020-03-27 06:41] LABS: Potassium 2.9 mmol/L (3.5-5.1)
[2020-03-27] MEDS: KCL 20 MEQ/100 mL IVPB 20 MEQ/100 ML BAG IV SCH ×3 (07:29→14:46)
[2020-03-27] MEDS: INSULIN -REGULAR HUMAN 50 UNIT/0.5 ML ML SQ SCH ×4 (07:30→20:03)
[2020-03-27] MEDS ORDERED: PANTOPRAZOLE 40MG TABLET PO SCH (07:30)
[2020-03-27] MEDS ORDERED: PNEUMOCOCCAL VACCINE 0.5 ML IMVAC ONE (08:00)
--- NOTE | 2020-03-27 08:34 | RAD REPORT ---
EXAM DESCRIPTION: US - CP - 03/27/2020 8:00 am CLINICAL HISTORY: cva COMPARISON: Head C Spine Mpr Wo Con dated 03/26/2020 TECHNIQUE: Real-time sonographic evaluation of bilateral carotid and vertebral systems was performed . Lazcano scale and Doppler interrogation were performed with waveform tracing bilaterally. FINDINGS: Normal high resistance waveforms are noted in both external carotid arteries. The common c arotid arteries and internal carotid arteries show normal low resistance waveforms. Mild calcified and non calcified plaquing changes are present in the right common carotid artery exte nding into the base of the bulb. Visually no significant luminal narrowing. Bilateral external caroti d plaquing changes are present. The lumens are not significantly narrowed. External carotid stenoses are generally not clinically significant. Peak systolic and end diastolic velocity values and the ICA/CCA ratios are in the non-hemodynamicall y significant range. Antegrade flow seen in both vertebral arteries. Velocity values and ratios were recorded and are retained in the patient's imaging records. IMPRESSION: Mild plaquing changes in the right common carotid artery and bilateral external carotid arteries. No hemodynamically significant stenoses identified. No evidence of a hemodynamically significant stenosis.
[2020-03-27] MEDS ORDERED: CEFTRIAXONE/SWI 1gm 1 GM/10 ML SYR IVP SCH (09:00)
[2020-03-27] MEDS: CLOPIDOGREL 75 MG TABLET PO SCH (09:08)
[2020-03-27] MEDS: HEPARIN 5000 UNIT/ML 1 ML VIAL SQ SCH (09:08)
[2020-03-27] MEDS: HYDRALAZINE HCL 20 MG/ML VIAL IV PRN (09:09)
--- NOTE | 2020-03-27 09:49 | EKG ---
Test Date: 2020-03-26 Test Time: 15:24:02 Rigging Engineer: REY MEASUREMENT RESULTS: Intervals: Rate: 60 DE: 174 QRSD: 94 QT: 446 QTc: 446 [place]: P: 40 DE: 174 QRS: -39 T: 151 INTERPRETIVE STATEMENTS: Normal sinus rhythm Left axis deviation Left ventricular hypertrophy with repolarization abnormality Abnormal ECG No previous ECG available for comparison Electronically Signed On 03-27-20 09:49:01 CDT by Alex Pena
--- NOTE | 2020-03-27 12:20 | P.PN ---
Subjective Date of Service: 03/28/20 (Hospitalist) Chief Complaint: Presumed syncope Patient is 84 years of age multiple medical problems admitted with a syncopal attack she was in the bathroom and she passed out patient denies any complaints denies any shortness of breath chest pain a a neurological problems Patient was severely hypokalemic with abnormal renal function presume volume depletion is on diuretics at home Review of Systems 10-point ROS is otherwise unremarkable General: Weakness Physical Examination - Vital Signs Temperature: 98.1 F Blood Pressure: 152/76 Pulse: 84 Respirations: 16 Pulse Ox (%): 94 - Physical Exam General: Alert, Oriented x3 HEENT: Atraumatic Neck: Supple Respiratory: Clear to auscultation bilaterally Cardiovascular: No edema, Regular rate/rhythm Gastrointestinal: Normal bowel sounds, Soft and benign Musculoskeletal: No clubbing, No contractures Neurological: Normal speech, Normal strength at 5/5 x4 extr, Cranial nerves 3-12 intact - Studies Laboratory Data (last 24 hrs) 03/26/20 15:08: WBC 19.3 H, Hgb 15.5 H, Hct 45.3 H, Plt Count 343 03/26/20 15:08: Sodium 136, Potassium 3.0 L, BUN 24 H, Creatinine 1.62 H, Glucose 134 H, Magnesium 2.0, Total Bilirubin 0.7, AST 14 L, ALT 23, Alkaline Phosphatase 62 Assessment & Plan - Problems (Diagnosis) (1) Syncope Current Visit: Yes Status: Acute Plan: Patient is 84 years of age admitted with a syncopal attack she was hypokalemic I suspect is from the diuretics renal function is improving continue with IV fluids white count is no evidence of urinary tract infection potassium will be replaced the pressure mildly elevated Dc antibiotics ambulate possible discharge tomorrow Dc hydrochlorothiazide consider adding a low-dose spironolactone instead patient is on losartan chest x-rays clear Physician Review: Patient Assessed, Agree with Above Assessment and Plan
--- NOTE | 2020-03-27 15:18 | ECHO ---
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 CARDIAC HISTORY: CATHERIZATION: NO SURGERY: NO PROSTHETIC VALVE: NO PACEMAKER: NO MEASUREMENTS (cm) DIASTOLIC (NORMALS) SYSTOLIC (NORMALS) IVSd 0.9 (0.6-1.2) LA Diam 3.4 (1.9-4.0) LVEF 79% LVIDd 4.9 (3.5-5.7) LVIDs 2.5 (2.0-3.5) %FS 48% LVPWd 1.1 (0.6-1.2) Ao Diam 3.0 (2.0-3.7) 2 DIMENSIONAL ASSESSMENT: RIGHT ATRIUM: NORMAL LEFT ATRIUM: NORMAL RIGHT VENTRICLE: NORMAL LEFT VENTRICLE: NORMAL TRICUSPID VALVE: NORMAL MITRAL VALVE: NORMAL PULMONIC VALVE: NOT SEEN WELL AORTIC VALVE: NORMAL PERICARDIAL EFFUSION: TRACE AORTIC ROOT: NORMAL LEFT VENTRICULAR WALL MOTION: HYPERDYNAMIC LEFT VENTRICLE, EJECTION FRACTION 75%. DOPPLER/COLOR FLOW: COMMENTS: NORMAL LEFT VENTRICULAR EJECTION FRACTION (HYPERDYNAMIC) 65%, NORMAL WALL MOTION. TECHNOLOGIST: GIULIA ARIAS
[2020-03-27] MEDS ORDERED: POTASSIUM CL SA 10 MEQ TAB PO ONE (19:22)
[2020-03-27] MEDS: MIRTAZAPINE 15 MG TAB PO SCH (19:54)
[2020-03-28] MEDS: HYDRALAZINE HCL 20 MG/ML VIAL IV PRN (01:03)
[2020-03-28] MEDS ORDERED: NIFEDIPINE XL 60 MG TABLET PO SCH (06:00)
[2020-03-28 06:04] LABS: Potassium 4.6 mmol/L (3.5-5.1)
[2020-03-28] MEDS: Ringers Lactate 1,000 ML IV SCH (06:31)
[2020-03-28] MEDS: INSULIN -REGULAR HUMAN 50 UNIT/0.5 ML ML SQ SCH ×2 (07:30→11:30)
[2020-03-28 08:50] VITALS: TEMP 98.1
--- NOTE | 2020-03-28 08:57 | P.DS ---
Admission Date: 03/26/20 (Hospitalist) Discharge Date: 03/28/20 Disposition: ROUTINE DISCHARGE Discharge Condition: GOOD Reason for Admission: Presumed syncope - Problems (1) Syncope Current Visit: Yes Status: Acute Brief History of Present Illness: Patient is 84 years of age admitted with hypokalemia and syncopal episode Hospital Course: She was very a orthostatics has some renal insufficiency patient was hydrated with IV fluids a kidney function went back to normal there is no evidence of sepsis at the time of discharge patient was alert oriented responsive cooperative feeling well healing slightly weaker chest is clear cardiovascular muscles normal blood pressure is mildly elevated hypokalemia resolved patient was instructed not to take hydrochlorothiazide otherwise will resume all her all other home medications to follow up with her primary care physician in a week ultrasound of the carotids did not show any significant carotid stenosis final x-rays were also negative renal function was normal at the time of discharge blood cultures are still pending urinalysis negative Vital Signs/Physical Exam: Temp Pulse Resp BP Pulse Ox 98.1 F 84 16 152/76 H 94 03/28/20 08:50 03/28/20 08:50 03/28/20 08:50 03/28/20 08:50 03/28/20 08:50 Laboratory Data at Discharge: WBC 8.2 K/uL (4.3-10.9) D 03/27/20 05:06 Hgb 13.2 g/dL (12.0-15.0) 03/27/20 05:06 Hct 38.1 % (36.0-45.0) D 03/27/20 05:06 Plt Count 278 K/uL (152-406) 03/27/20 05:06 Sodium 142 mmol/L (136-145) 03/28/20 05:20 Potassium 4.6 mmol/L (3.5-5.1) 03/28/20 05:20 BUN 13 mg/dL (7-18) 03/28/20 05:20 Creatinine 1.03 mg/dL (0.55-1.3) 03/28/20 05:20 Glucose 117 mg/dL (74-106) H 03/28/20 05:20 Magnesium 1.6 mg/dL (1.8-2.4) L 03/27/20 18:44 Total Bilirubin 0.5 mg/dL (0.2-1.0) 03/27/20 05:06 AST 15 U/L (15-37) 03/27/20 05:06 ALT 18 U/L (12-78) 03/27/20 05:06 Alkaline Phosphatase 47 U/L (45-117) 03/27/20 05:06 Troponin I < 0.02 ng/mL (0.0-0.045) 03/27/20 01:32 Home Medications: Clopidogrel Bisulfate [Plavix*] 1 tab PO DAILY 03/26/20 Levothyroxine Sodium 1 tab PO DAILY 03/26/20 Losartan Potassium 1 tab PO DAILY 03/26/20 Memantine HCl 1 tab PO DAILY 03/26/20 Metformin ER [Glucophage ER*] 1 tab PO DAILY 03/26/20 NIFEdipine [Nifedipine ER] 1 tab PO Q12H 03/26/20 Rosuvastatin Calcium 1 tab PO BEDTIME 03/26/20 Sertraline [Zoloft*] 1 tab PO DAILY 03/26/20 Patient Discharge Instructions: Patient to resume all her home medication and stop hydrochlorothiazide follow-up with the primary care physician in a week Diet: Regular Activity: Ad kelly
[2020-03-28] MEDS ORDERED: HOME MED 1 EA UNK (Losartan Potassium [Losartan Potassium] 1 TAB) PO SCH (09:00)
[2020-03-28] MEDS: CLOPIDOGREL 75 MG TABLET PO SCH (10:09)
[2020-03-28 12:44] VITALS: BP 125/70
[2020-03-28 13:33] VITALS: O2SAT 98
[2020-03-28] MEDS ORDERED: MIRTAZAPINE 15 MG TAB PO ONE (21:05)
== END 2020-03-28 12:32 | disposition home or self-care (01) ==
LOC: ER 13:26 → ERHOLD 18:48 → INTOOBSV 18:48 → 2ND 20:39
PROVIDERS: ADMIT Internal Medicine; ATTEND Internal Medicine Sleep Medicine
DX: I95.1 Orthostatic hypotension (principal); E87.6 Hypokalemia; N17.9 Acute kidney failure, unspecified; E11.9 Type 2 diabetes mellitus without complications; I10 Essential (primary) hypertension; F03.90 Unspecified dementia, unspecified severity, without behavioral disturbance, psychotic disturbance, mood disturbance, and anxiety; E78.5 Hyperlipidemia, unspecified; F32.9 Major depressive disorder, single episode, unspecified; R63.0 Anorexia; Z68.28 Body mass index [BMI] 28.0-28.9, adult; Z87.440 Personal history of urinary (tract) infections
CPT/HCPCS: 96365; 96361; 93005; 93306; 87040; 85025 ×2; 80048 ×2; 36415 ×2; 83735 ×3; 84132; 84300; 82947 ×5; 80076; 84443; 81003; 82570; 84484 ×3; 80053; 83880; 70450; 72125; 71045; 93880; 97535; 97112 ×2; 97116; 97161; 97530 ×2; 96375; 99285; J0360 ×2; J1644 ×2; J0696 ×2; J7120 ×4; J7040 ×2; J7030; G0378 ×4

== ENCOUNTER 2021-10-19 05:26 | Emergency (ER) | payer OTHER ==
--- OUTSIDE RECORDS SUMMARY | 2021-10-19 05:29 | XMS REPORT | Continuity of Care Document ---
:1935 Author Organization [facility] t Address [address] [place] [address] Care Team Providers Name Role Phone AALIYAH Primary Care Physician Unavailable Mark QUIROZ, G Attending Clinician Zaheer FLORES Attending Clinician Unavailable ASHISH Attending Clinician Unavailable DR TORI Attending Clinician Unavailable Zaheer FLORES Admitting Clinician Unavailable LUCINA Admitting Clinician Unavailable DR TORI Admitting Clinician Unavailable Payers Payer Name Policy Type Policy Number Effective Date Expiration Date S ource Problems Condition Condition Condition Status Onset Resolution Last Treating Co mments Source Name Details Category Date Date Treatment Clinician Date No known No known Disease Unive rs active active ity of problems problems [facility] Allergies, Adverse Reactions, Alerts Allergy Allergy Status Severity Reaction(s) Onset Inactive Treating Comm ents Source Name Type Date Date Clinician NO KNOWN Drug Active Univers ALLERGIE Class ity of S [facility] Social History Social Habit Start Date Stop Date Quantity Comments Source Sex Assigned At Uni versity [facility] Smoking Status Start Date Stop Date Source Unknown [facility] Medications Ordered Filled Start Stop Current Ordering Indication Dosage Frequency Signature Comments Components Source Medication Medication Date Date Medication? Clinician (SIG) Name Name Trimethopri Trimethopri 2020- No Johana [address] [facility] m 04-02 [place] Marieekes - 00:00: 00:00 Memoria 00 :00 [facility] cefTRIAXone 2020- No 1000mg 1,000 mg, Univers (ROCEPHIN) -17 02- Slow IV ity o f injection 20:15: 19:54 [place], [place] 1,000 mg 00 :00 ONCE, 1 Medical dose, [facility] 02/18/20 at 1515, STAT
Re ason for Anti-Infec tive: Documented Infection< br>Documen karolina Infection Site: Urine
D uration of Therapy: 7 days KCL 2019-0 2020- No 40meq 40 mEq, Univers (KLOR-CON 02-17 Oral, ity of M20) tablet 19:00: 17:57 [place] 1 [place] :00 dose, [facility] 02/18/20 at Branch 1400, ENEDINA metformin 2019-0 Yes 500mg Take 500 Uni vers HCl 3-24 mg by ity of (METFORMIN 18:47[place] 34 (two) Medical times [place] daily. losartan 2019-0 Yes 100mg Take 100 Univ ers 100 mg 3-24 mg by ity of tablet 18:47: mouth [place] 34 daily. Medical Branch Levothyroxi 2020-0 Yes 150ug Take 150 U nivers ne 150 mcg 3-24 mcg by ity of capsule 18:47: mouth [place] 34 daily. Medical Branch VALSARTAN 2020-0 Yes Take by Univ ers ORAL 3-24 mouth. ity of 16:25: [place] 09 Medical Branch cefpodoxime 2020-0 2020- No [id number] 200mg Take 1 Univers 200 mg -02-25 tablet by ity of tablet 00:00: 04:59 mouth 2 [place] 00 :00 (two) Medical times [place] daily for 7 days. Clopidogrel Clopidogrel Yes Johana [address] [facility] Bisulfate Bisulfate [employer] [facility] - [facility] Metformin Metformin Yes Johana [address] [facility] HCl HCl [place]ose with a [facility] - meal [facility] B1 Natural B1 Natural Yes Johana as [facility] [place] directed [facility] Rosuvastati Rosuvastati Yes Johana [address] [facility] [facility] n Calcium n Calcium [employer] [facility] - [facility] Nifedical Nifedical Yes Johana [address] [facility] [address] XL XL [employer] [facility] Losartan Losartan Yes Johana [address] Potassium Potassium [place] L [facility]kes - [facility] Hydrochloro Hydrochloro Yes Johana as [facility] thiazide thiazide [employer] directed [facility] Levothyroxi Levothyroxi Yes Johana [address] [facility] ne Sodium ne Sodium [employer] in the [facility] - morning on Memoria an empty l stomach [facility] Estradiol Estradiol Yes Johana as [facility] Vital Signs Vital Name Observation Time Observation Value Comments Source Systolic blood 2020-02-18 20:00:00 138 mm[Hg] Univer sity of pressure [facility] Diastolic blood 2020-02-18 20:00:00 98 mm[Hg] Unive rsity of [facility] Heart rate 2020-02-18 20:00:00 78 /min [facility] Respiratory rate 2020-02-18 20:00:00 18 /[facility] in 2020-02-18 20:00:00 97 /min University of Arterial blood by [facility] Pulse oximetry Branch Body temperature 2020-02-18 15:56:00 37.06 Zohreh [facility] Body height 2020-02-18 15:56:00 160 cm [facility] Body weight 2020-02-18 15:56:00 74.39 kg [facility] BMI 2020-02-18 15:56:00 29.05 kg/m2 [facility] Systolic blood 2020-02-18 20:00:00 138 mm[Hg] Univer sity of [facility] Diastolic blood 2020-02-18 20:00:00 98 mm[Hg] Unive rsity of pressure [facility] Heart rate 2020-02-18 20:00:00 78 /min [facility] Respiratory rate 2020-02-18 20:00:00 18 /min [facility] Oxygen saturation in 2020-02-18 20:00:00 97 /min University of Arterial blood by [facility] Pulse oximetry Branch Body temperature 2020-02-18 15:56:00 37.06 [facility]reh [facility] Body height 2020-02-18 15:56:00 160 cm [facility] Body weight 2020-02-18 15:56:00 74.39 kg [facility] BMI 2020-02-18 15:56:00 29.05 kg/m2 [facility] Procedures Procedure Date / Time Performing Clinician Source Performed BASIC METABOLIC PANEL 2020-02-18 19:53:00 Lazara Flores [facility] (NA, K, CL, CO2, [facility] GLUCOSE, BUN, CREATININE, CA) URINALYSIS 2020-02-18 17:49:[address] [facility] XR CHEST 1 VW 2020-02-18 17:08:[address] [facility] ADC,CLC OR LCC ONLY - 2020-02-18 17:03:[address] [facility] INFLUENZA A & B DIRECT Medical [facility] ANTIGEN MAGNESIUM 2020-02-18 17:02:[address] [facility] TROPONIN I 2020-02-18 17:02:[address] [facility] COMP. METABOLIC PANEL 2020-02-18 17:02:[address] [facility] ([id number]) [facility] CBC WITH DIFFERENTIAL 2020-02-18 17:02:00 Lazara Flores [facility] N-TERMINAL PRO-BNP 2020-02-18 17:02:00 Lazara Flores [facility] EKG-12 LEAD 2020-02-18 16:12:[address] [facility] NOTICE OF PRIVACY 2020-02-18 15:44:39 Doctor Unassigned, No Univ [facility] PRACTICES Name [facility] CONSENT/REFUSAL FOR 2020-02-18 15:44:29 [facility]igned, [facility] Encounters Start End Encounter Admission Attending Care Care Encounter Source Date/Time Date/Time Type Type Clinicians Facility Department ID 2020-11-10 2020-11-10 [facility] [id number] 2020-11-05 2020-11-05 Outpatient [facility] [id number] [facility] 2020-11-04 2020-11-04 [facility] [id number] [facility] 2020-11-04 2020-11-04 [facility] [id number] [facility] 2020-09-02 2020-09-02 [facility] [id number] [facility] 2020-04-02 2020-04-02 [facility] [id number] [address] 14:30:00 14:30:00 t Specialty/U Jaylene kes - Specialty rology Memori a /Urology Clinic l Clinic Outpati ent [facility] 2020-02-18 2020-02-[address] [facility] [id number] [facility] 10:47:51 16:20:00 Lazara Valladares [id number] ity [facility] [id number] [facility] [id number] [address] 2020-02-18 2020-02-18 Emergency X [facility] ERT [id number] Univers 10:47:51 16:20:00 LAZARA robertson [facility] 2020-02-18 2020-02-[address] [facility] [id number] 10:47:51 16:20:00 Lazara Valladares [id number] [employer] [id number] [place] [id number] 4 2019-12-27 2019-12-27 [facility] [id number] 15:30:00 15:30:00 t Specialty/U Jaylene kes - Specialty rology Memori a /Urology Clinic l Clinic Outpati ent Clinics 2019-09-24 2019-09-27 Inpatient JOSESTEVECARLINE [facility] [id number] [place] 00:00:00 00:00:00 ROSENDA [address] 2019-03-26 2019-03-26 Emergency E [facility] 7502 FB 12:27:00 12:27:00 2016-11-14 2016-11-14 Emergency E TORI [facility] [id number] [facility] 14:58:00 16:13:00 [facility] Results Test Description Test Time Test Comments Results Result Comments Source BASIC METABOLIC PANEL (NA, K, CL, CO2, GLUCOSE, BUN, 2020-01 20:16:00 CREATININE, CA) Test Item Value Reference Range Interpretation Comme nts NA (test code = 1638724049) 137 mmol/L 135-145 K (test code = 8330058363) 3.3 mmol/L 3.5-5 L CL (test code = 8932205668) 100 mmol/L 98-108 CO2 TOTAL (test code = 3654205393) 27 mmol/L 23-31 AGAP (test code = 2593175088) 2-16 BUN (test code = 6606576228) 17 mg/dL 7-23 GLUCOSE (test code = 2858138930) 103 mg/dL 70-110 CREATININE (test code = 0.92 mg/dL 0.5-1.04 1739670278) CALCIUM (test code = 3584756694) 9.5 mg/dL 8.6-10.6 eGFR Calculation (Non- mL/min/1.73m2 Naur[place]) (test code = 9969369088) eGFR Calculation ( mL/min/1.73m2 [place]) (test code = 4383765521) SHAHEED (test code = SHAHEED) Association of Glomerular Filtration Rate (GFR) and Staging of Kidney Disease* + +-------- + ------+| GFR (mL/min/1.73 m2) ?| With Kidney Damage ?| ?Without Kidney Damage+ +-- + +| ?>90 ?| ?Stage one ?| ? Normal ?+ +------- + -------+| ?60-89 ?| ?Stage two ?| ? Decreased GFR ? + +-------- + ------+| ?30-59 ?| ?Stage three ?| ? Stage three ? + +-------- + ------+| ?15-29 ?| ?Stage four ? | ? Stage four ?+ +------- + -------+| ?<15 (or dialysis) ? ?| ?Stage five ? | ? Stage five ?+ +------- + -------+ *Each stage assumes the associated GFR level has been in effect for at least three months. ?Stages 1 to 5, with or without kidney disease, indicate chronic kidney disease. Notes: Determination of stages one and two (with eGFR >59mL/min/1.73 m2) requires estimation of kidney damage for at least three months as defined by structural or functional abnormalities of the kidney, manifested by either:Pathological abnormalities or Markers of kidney damage (including abnormalities in the composition of the blood or urine or abnormalities in imaging tests). Lab Interpretation (test code = Abnormal 89347-8) [facility]2020-[facility]24 18:41:00 Test Item Value Reference Range Interpretation Comments APPEARANCE (test code = Hazy Clear A 4469093568) COLOR (test code = Yellow Yellow 7534685104) PH (test code = 4.8-8.0 9547508306) SP GRAVITY (test code = 1.003-1.030 0080617756) GLU U QUAL (test code = Normal Normal 2277361493) BLOOD (test code = Negative Negative 1787721565) KETONES (test code = Negative Negative 0893167510) PROTEIN (test code = Negative Negative 2887-8) UROBILIN (test code = Normal Normal 9041062958) BILIRUBIN (test code = Negative Negative 8040072286) NITRITE (test code = Negative Negative 0346461635) LEUK CHRISTOPHER (test code = 75/uL Negative A 1327079620) RBC/HPF (test code = See_Comment [Autom ated message] 7871152943) The system [employer] generated this result transmitted ref erence range: 0 - 3 HP F. The reference range was not used to int erpret this result as normal/abnormal . WBC/HPF (test code = See_Comment H [Autom ated message] 5728162418) The system [employer] generated this result transmitted ref erence range: 0 - 5 HP F. The reference range was not used to int erpret this result as normal/abnormal . BACTERIA (test code = Many Negative A 2900657936) SQ EPITH (test code = HPF 6842675786) HYAL CAST (test code = See_Comment H [Aut omated message] 6160708670) The system [employer] generated this result transmitted ref erence range: <=2 LPF. The reference range was not used to int erpret this result as normal/abnormal . Lab Interpretation (test Abnormal code = 10702-7) [facility]2020-03-24 18:12:00 Test Item Value Reference Range Interpretation Comments MAGNESIUM (test code = 3768386234) 1.8 mg/dL 1.7-2.4 Lab Interpretation (test code = Normal 26905-2) [facility] [id number] 17:39:00 Test Item Value Reference Range Interpretation Comments TROPONIN I (test 0.018 ng/mL See_Comment [Automated code = 3250720800) message] The system which generated this result transmitted reference range : <=0.034. The reference range was not used to interpret this result as normal/abnormal . SHAHEED (test code = Equal or Less than SHAHEED) 0.034 ng/ml---Normal ?Note: Cardiac troponin begins to rise 3-4 hours after the onset of ischemia. Repeat in 4-6 hours if the sample was drawn within 3-4 hours of the onset of the symptom and found normal. Between 0.035 and 0.120 ng/mL--- Borderline. Questionable myocardial injury or necrosis ? ?Note: Serial measurement may be necessary to confirm or exclude the diagnosis of myocardial injury or necrosis; Clinical correlation (symptoms, EKGs, imaging studies, and others) required; Repeat in 4-6 hours if clinically indicated. ? Equal or Higher than 0.121 ng/mL---Abnormal. Myocardial Injury or Necrosis Likely ? Biotin has been reported to cause a negative bias, interpret results relative to patient's use of biotin. ? Lab Interpretation Normal (test code = 41720-9) [facility]AL [id number] 17:35:00 Test Item Value Reference Range Interpretation Comments NT-proBNP (test code 126 pg/mL See_Comment [Autom ated = 6188586915) message] The system which generated this result transmitted reference range : <=450. The reference range was not used to interpret this result as normal/abnormal . SHAHEED (test code = SHAHEED) Biotin has been reported to cause a negative bias, interpret results relative to patient's use of biotin. Lab Interpretation Normal (test code = 19509-1) [facility] OR [facility] ONLY - INFLUENZA A & B DIRECT [id number] 17:33:00 Test Item Value Reference Range Interpretation Comments Influenza A (test code = 40856-9) Negative Negative Influenza B (test code = 64967-0) Negative Negative Lab Interpretation (test code = Normal 12732-3) [facility]. METABOLIC PANEL (64301)2020-02-18 17:28:00 Test Item Value Reference Range Interpretation Comments NA (test code = 135 mmol/L 135-145 5716903630) K (test code = 2.7 mmol/L 3.5-5 LL 0576891012) CL (test code = 99 mmol/L 98-108 3779831018) CO2 TOTAL (test code = 24 mmol/L 23-31 1996048011) AGAP (test code = 2-16 9416464736) BUN (test code = 18 mg/dL 7-23 2811190833) GLUCOSE (test code = 211 mg/dL 70-110 H 9654503363) CREATININE (test code = 0.99 mg/dL 0.5-1.04 1229400809) TOTAL BILI (test code = 0.6 mg/dL 0.1-1.7 6272439502) CALCIUM (test code = 9.5 mg/dL 8.6-10.6 0860658077) T PROTEIN (test code = 7.9 g/dL 6.3-8.2 5393498090) ALBUMIN (test code = 4.7 g/dL 3.5-5 6837828908) ALK PHOS (test code = 72 U/L 34-122 9846288636) ALTv (test code = 16 U/L 5-35 1742-6) AST(SGOT) (test code = 24 U/L 13-40 8266040895) eGFR Calculation mL/min/1.73m2 (Non-) (test code = 9949231589) eGFR Calculation mL/min/1.73m2 () (test code = 2319530976) SHAHEED (test code = SHAHEED) Association of Glomerular Filtration Rate (GFR) and Staging of Kidney Disease* + --+ --+ ------+| GFR (mL/min/1.73 m2) ?| With Kidney Damage ?| ?Without Kidney Damage+ --------+ --------+ +| ?>90 ?| ?Stage one ?| ? Normal ?+ ---+ ---+ -------+| ?60-89 ?| ?Stage two ?| ? Decreased GFR ? + --+ --+ ------+| ?30-59 ?| ?Stage three ?| ? Stage three ? + --+ --+ ------+| ?15-29 ?| ?Stage four ? | ? Stage four ?+ ---+ ---+ -------+| ?<15 (or dialysis) ? ?| ?Stage five ? | ? Stage five ?+ ---+ ---+ -------+ *Each stage assumes the associated GFR level has been in effect for at least three months. ?Stages 1 to 5, with or without kidney disease, indicate chronic kidney disease. Notes: Determination of stages one and two (with eGFR >59mL/min/1.73 m2) requires estimation of kidney damage for at least three months as defined by structural or functional abnormalities of the kidney, manifested by either:Pathological abnormalities or Markers of kidney damage (including abnormalities in the composition of the blood or urine or abnormalities in imaging tests). Lab Interpretation Abnormal (test code = 02131-1) [facility] [id number] 17:16:00 Test Item Value Reference Range Interpretation Comments WBC (test code = See_Comment H [Automated 2582-2) message] The sy stem which generated this result transmitted reference range : 4.30 - 11.10 10*3/?L. The reference range was not used to interpret this result as normal/abnormal . RBC (test code = See_Comment [Automated 439-8) message] The sy stem which generated this result transmitted reference range : 3.93 - 5.25 10*6/?L. The reference range was not used to interpret this result as normal/abnormal . HGB (test code = 14.2 g/dL 11.6-15 718-7) HCT (test code = 41.7 % 35.7-45.2 4544-3) MCV (test code = 79.9 fL 80.6-95.5 L 787-2) MCH (test code = 27.2 pg 25.9-32.8 785-6) MCHC (test code = 34.1 g/dL 31.6-35.1 786-4) RDW-SD (test code = 37.9 fL 39-49.9 L 46489-4) RDW-CV (test code = 13.1 % 12-15.5 788-0) PLT (test code = See_Comment [Automated 777-3) message] The sy stem which generated this result transmitted reference range : 166 - 358 10*3/ ?L. The reference r amado was not used to interpret this result as normal/abnormal . MPV (test code = 9.2 fL 9.5-12.9 L 85848-1) NRBC/100 WBC (test See_Comment [Automat ed code = 7064056188) message] The system which generated this result transmitted reference range : 0.0 - 10.0 /100 WBCs. The refer ence range was not u sed to interpret th is result as normal/abnormal . NRBC x10^3 (test code <0.01 See_Comment [Auto mated = 0115364231) message] The s ystem which generated this result transmitted reference range : 10*3/?L. The reference range was not used to interpret this result as normal/abnormal . GRAN MAT (NEUT) % 76.2 % (test code = 770-8) IMM GRAN % (test code 0.60 % = 8584960976) LYMPH % (test code = 12.0 % 736-9) MONO % (test code = 8.0 % 5905-5) EOS % (test code = 2.5 % 713-8) BASO % (test code = 0.7 % 706-2) GRAN MAT x10^3(ANC) 9.29 10*3/uL 1.88-7.09 H (test code = 2359230245) IMM GRAN x10^3 (test 0.07 10*3/uL 0-0.06 H code = 8606260546) LYMPH x10^3 (test code 1.46 10*3/uL 1.32-3.29 = 731-0) MONO x10^3 (test code 0.98 10*3/uL 0.33-0.92 H = 742-7) EOS x10^3 (test code = 0.31 10*3/uL 0.03-0.39 711-2) BASO x10^3 (test code 0.09 10*3/uL 0.01-0.07 H = 704-7) Lab Interpretation Abnormal (test code = 18040-5) [facility] 1 [id number] 17:10:29HISTORY: Cough. TECHNIQUE: Portable AP erect view of the chest is obtained. FINDINGS: No acute pneumonia. No pneumothorax or pleural effusion orpulmonary congestion detected. Cardiac size is within normal limits. Mildelevation of the right hemidiaphragm, thoracic dextroscoliosis withdegenerative spondylosis and calcified granuloma in the left lower lungnoted. CONCLUSIONS: No signs of acute cardiopulmonary disease.[facility], Radiant Results Inft User - 02/18/2020 12:11 PM CDTHISTORY: Cough.TECHNIQUE: Portable AP erect view of the chest is obtained.FINDINGS: No acute pneumonia. No pneumothorax or pleural effusion orpulmonary congestion detected. Cardiac size is within normal limits. Mildelevation of the right hemidiaphragm, thoracic dextroscoliosis withdegenerative spondylosis and calcified granuloma inthe left lower lungnoted.CONCLUSIONS: No signs of acute cardiopulmonary disease.[facility]"
[2021-10-19] MEDS ORDERED: MORPHINE 2 MG/ML SYR ONE ×2 (05:45→08:42)
[2021-10-19] MEDS ORDERED: NA CHLORIDE 0.9% 1,000 ML ONE (05:45)
[2021-10-19] MEDS ORDERED: ONDANSETRON 4 MG/2 ML VIAL ONE (05:45)
[2021-10-19] MEDS ORDERED: NA CHLORIDE 0.9% 500 ML ONE (05:45)
[2021-10-19 06:18] LABS: Absolute Lymphocytes (CBC) 0.8 K/uL (0.7-4.9); Basophils % 1.1 % (0-1.3); Hematocrit 44.7 % (36.0-45.0); Lymphocytes % 4.1 % (15.3-44.8); MPV 7.9 fL (7.6-11.3); Protime INR 0.91
[2021-10-19 06:50] LABS: ALT/SGPT 31 U/L (12-78); Albumin 3.8 g/dL (3.4-5.0); Alkaline Phosphatase 74 U/L (45-117); BUN Blood Urea Nitrogen 23 mg/dL (7-18); Bicarbonate 22 mmol/L (21-32); Bilirubin Direct < 0.1 mg/dL (0-0.2); Bilirubin Total 0.6 mg/dL (0.2-1.0); Glucose Level 181 mg/dL (74-106); NT PRO-BNP 979 pg/mL (<450); Protein, Total 8.1 g/dL (6.4-8.2); Sodium Level 138 mmol/L (136-145); Troponin I < 0.02 ng/mL (0.0-0.045)
[2021-10-19 06:51] LABS: AST/SGOT 34 U/L (15-37); Magnesium 2.4 mg/dL (1.8-2.4); Potassium 4.2 mmol/L (3.5-5.1)
[2021-10-19 06:54] LABS: Blood Morphology Comment NOT SEEN (NOT SEEN); Platelet Estimate ADEQ
[2021-10-19 07:03] LABS: Urine Blood Trace-lysed (Negative); Urine Glucose 1+ (Negative); Urine Protein Negative (Negative)
--- NOTE | 2021-10-19 07:58 | RAD REPORT ---
EXAM DESCRIPTION: RAD - Pelvis - 10/19/2021 6:50 am CLINICAL HISTORY: Pelvic pain status post injury FINDINGS: No fracture or dislocation is seen. Bones are osteoporotic
--- NOTE | 2021-10-19 07:58 | RAD REPORT ---
EXAM DESCRIPTION: CT - Pelvis Wo Cont - 10/19/2021 7:30 am CLINICAL HISTORY: Pelvic pain status post fall . TECHNIQUE: Computed axial tomography of the pelvis was obtained. Coronal and sagittal reconstruction performed All CT scans are performed using dose optimization technique as appropriate and may include automated exposure control or mA/KV adjustment according to patient size. FINDINGS: The bones are osteoporotic. No fracture or dislocation is seen. Mild contusions subcutaneous tissues left hip. Muscles are normal size and density. IMPRESSION: No fracture seen. If the patient continues have symptoms to suggest an occult fracture M RI would be recommended
--- NOTE | 2021-10-19 08:00 | RAD REPORT ---
EXAM DESCRIPTION: RADTib Fib Left10/19/2021 6:50 am CLINICAL HISTORY: Left leg pain status post injury FINDINGS: No fracture is seen. Bones are osteoporotic
--- NOTE | 2021-10-19 08:00 | RAD REPORT ---
EXAM DESCRIPTION: Tasha Single View10/19/2021 6:50 am CLINICAL HISTORY: Chest pain COMPARISON: 2019 FINDINGS: Chronic elevation of the right hemidiaphragm. The lungs appear clear of acute infiltrate. The heart is normal size IMPRESSION: No acute abnormalities displayed
--- NOTE | 2021-10-19 08:04 | RAD REPORT ---
EXAM DESCRIPTION: RAD - Knee Left 3 View - 10/19/2021 6:50 am CLINICAL HISTORY: Left knee pain status post injury FINDINGS: Curvilinear lucency is present within the distal femoral diaphysis. Most likely this repre sents prominent trabecula. Nondisplaced fracture although possible is considered less likely. If the the patient has pain in this region CT would be recommended. 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 No evidence of loosening of the prosthesis. No dislocation
--- NOTE | 2021-10-19 08:05 | RAD REPORT ---
EXAM DESCRIPTION: RAD - Femur Left - 10/19/2021 6:50 am CLINICAL HISTORY: Left leg pain FINDINGS: Curvilinear lucency is present within the distal femoral diaphysis. Most likely this repre sents prominent trabecula. Nondisplaced fracture although possible is considered less likely. If the patient has pain in this region CT would be recommended. 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 No evidence of loosening of the prosthesis. No dislocation
[2021-10-19 08:42] LABS: Urine Blood Trace-intact (Negative); Urine Glucose 1+ (Negative); Urine Protein Negative (Negative); Urine pH 6.5 (5.0-7.0)
[2021-10-19 09:37] LABS: Urine Bacteria <20 /HPF (<20); Urine RBC <5 /HPF (NONE SEEN)
[2021-10-19] MEDS ORDERED: AMLODIPINE 5 MG TAB ONE (10:37)
[2021-10-19] MEDS ORDERED: NIFEdipine 10 MG CAP ONE (10:38)
--- NOTE | 2021-10-19 10:43 | ER ---
Nurse's Notes [facility] Name: Kyung Bonilla Age: 85 yrs Sex: Female : 1935 Arrival Date: 10/19/2021 Time: 05:32 Bed 5 Private MD: Diagnosis: Fall on same level from slipping, tripping and stumbling without subsequent striking against object;Contusion of left hip Presentation: 10/19 05:47 Chief complaint: EMS states: " she fell at her sons house, she is complaining of pain tw5 in her left hip and down her leg. She fell going on the way to bathroom.". Coronavirus screen: Vaccine status: Patient reports receiving the 2nd dose of the covid vaccine. Date January 2021. Ebola Screen: Patient negative for fever greater than or equal to 101.5 degrees Fahrenheit, and additional compatible Ebola Virus Disease symptoms Patient denies exposure to infectious person. Patient denies travel to an Ebola-affected area in the 21 days before illness onset. Initial Sepsis Screen: Does the patient meet any 2 criteria? No. Patient's initial sepsis screen is negative. Does the patient have a suspected source of infection? No. Patient's initial sepsis screen is negative. Risk Assessment: Do you want to hurt yourself or someone else?. Onset of symptoms is unknown. 05:47 Method Of Arrival: EMS: [facility] tw5 05:47 Acuity: LEONARDO 3 tw5 Triage Assessment: 05:54 General: Appears uncomfortable, Behavior is cooperative. Pain: Complains of pain in tw5 left hip and left leg Pain currently is 7 out of 10 on a pain scale. Historical: - Allergies: 05:52 No Known Allergies; tw5 - Home Meds: 05:54 clopidogrel 75 mg oral tab 1 tab once daily [Active]; levothyroxine 50 mcg cap 1 cap tw5 once daily [Active]; trimethoprim 100 mg Oral tab 1 tab every 12 hours [Active]; amlodipine 5 mg tab 1 tab once daily [Active]; metformin 500 mg Oral Tb24 1 tab once daily [Active]; Nifedipine ER Oral 60 mg [Active]; sertraline 100 mg oral tab 1 tab once daily [Active]; - PMHx: 05:52 Dementia; Hypertension; TIA; tw5 - Immunization history:: Flu vaccine is not up to date. - Social history:: Smoking status: Patient denies any tobacco usage or history of. - Family history:: not pertinent. Screenin:57 Abuse screen: Denies threats or abuse. Denies injuries from another. Nutritional tw5 screening: No deficits noted. Tuberculosis screening: No symptoms or risk factors identified. Fall Risk Fall in past 12 months (25 points). Secondary diagnosis (15 points) IV access (20 points). Ambulatory Aid-. Assessment: 05:57 General: Behavior is cooperative, appropriate for age. 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 Respiratory: Airway is patent Trachea midline Respiratory effort is even, unlabored. 05:57 Derm: Bruising that is dark purple, on dorsum of right hand. tw5 06:05 Pain: Complains of pain in " I have a real bad headach.'. tw5 Vital Signs: 05:47 BP 210 / 101; Pulse 83; Resp 18; Temp 98.0; Pulse Ox 96% on R/A; Weight 74.84 kg; tw5 Height 5 ft. 2 in. (157.48 cm); Pain 7/10; 06:05 BP 189 / 92; Pulse 72; Resp 18; Pulse Ox 91% ; tw5 08:24 BP 204 / 100; Pulse 69; Resp 19; Pulse Ox 95% on R/A; sm5 09:44 BP 171 / 88; Pulse 65; Resp 17 S; Pulse Ox 95% on R/A; sm5 10:56 BP 182 / 91; Pulse 71; Resp 18; Pulse Ox 96% ; sm5 05:47 Body Mass Index 30.18 (74.84 kg, 157.48 cm) tw5 [place] Coma Score: 05:44 Eye Response: spontaneous(4). Verbal Response: oriented(5). Motor Response: obeys christopher commands(6). Total: 15. ED Course: 05:32 Patient arrived in ED. la1 05:32 Kartik Pichardo MD is Attending Physician. christopher 05:45 Celeste Morgan is Primary Nurse. tw5 05:51 Triage completed. tw5 05:54 Arm band placed on. EKG completed in triage. Results shown to . tw5 05:55 Missed attempt(s): 22 gauge in right forearm. Bleeding controlled, band aid applied, ds4 catheter tip intact. 05:57 Resting quietly. Awaiting lab results. tw5 05:57 Initial lab(s) drawn, by ED staff, sent to lab. EKG done, by ED staff, COVID swab sent tw5 to lab. Inserted saline lock: 20 gauge in left forearm, using aseptic technique. Blood collected. 05:57 Patient has correct armband on for positive identification. Placed in gown. Bed in low tw5 position. Call light in reach. Side rails up X 1. Adult w/ patient. youth nutritional monitor on. Pulse ox on. NIBP on. Door closed. Noise minimized. Lights dimmed. Moved to private room. Warm blanket given. Verbal reassurance given. 06:47 Assisted with bedpan. tw5 07:26 Chest Single View In Process Unspecified. EDMS 07:26 Pelvis In Process Unspecified. EDMS 07:26 Knee Left 3 View In Process Unspecified. EDMS 07:26 Femur Left In Process Unspecified. EDMS 07:26 Tib Fib Left In Process Unspecified. EDMS 07:29 Pelvis Wo Cont In Process Unspecified. EDMS 08:30 Quinn Flores, GABRIELLA is PHCP. pm1 09:34 Pt ambulated through marquis with nurse at side. sm5 11:02 No provider procedures requiring assistance completed. IV discontinued, intact, sm5 bleeding controlled, No redness/swelling at site. Pressure dressing applied. Administered Medications: 05:59 Drug: NS 0.9% 500 ml Route: IV; Rate: bolus; Site: left forearm; tw5 06:00 Drug: morphine 2 mg Route: IVP; Site: left forearm; tw5 06:00 Drug: Zofran (Ondansetron) 4 mg Route: IVP; Site: left forearm; tw5 06:37 Follow up: Response: No adverse reaction tw5 06:47 Drug: NS 0.9% 1000 ml Route: IV; Rate: 125 ml/hr; Site: left forearm; tw5 08:50 Drug: morphine 2 mg Route: IVP; Site: left forearm; sm5 10:50 Drug: Norvasc (amlodipine) 5 mg Route: PO; sm5 10:50 Drug: NIFEdipine 60 mg Route: PO; sm5 Outcome: 10:42 Discharge ordered by . pm1 11:02 Discharged to home sm5 11:02 Condition: stable 11:02 Discharge instructions given to 11:15 Patient left the ED. [facility] Signatures: Dispatcher [employer] EDMS Kartik Pichardo MD MD cha Swanson, Donovan ds4 Jacob Martinez, DEAN OF STUDENTS-C DEAN OF STUDENTS-Cla1 Quinn Flores, SODIUM METHYLATE OPERATOR SODIUM METHYLATE OPERATOR pm1 Celeste Morgan 5 Elizabeth Napoles RN RN [facility] Mariola Jacob RN RN [facility]
--- NOTE | 2021-10-19 10:43 | EDPHYS ---
Physician Documentation [facility] Name: Kyung Bonilla Age: 85 yrs Sex: Female : 1935 Arrival Date: 10/19/2021 Time: 05:32 Bed 5 Private MD: ASHLY Physician Kartik Pichardo HPI: 10/19 05:44 This 85 yrs old Female presents to ER via Unassigned with complaints of fall christopher at home, with pain , cant walk. 05:44 The patient or guardian reports decreased range of motion, pain. that occurred at home, christopher sustained from a fall, while walking. The complaints affect the left hip and left gluteal fold. Onset: The symptoms/episode began/occurred just prior to arrival. Modifying factors: The symptoms are alleviated by nothing, the symptoms are aggravated by nothing. The patient presents with decreased range of motion, pain. The complaints affect the left hip and left gluteal fold. The complaints affect the left hip and left gluteal fold. Context: The problem was sustained at home. Modifying factors: The symptoms are alleviated by remaining still, the symptoms are aggravated by movement, weight bearing. Historical: - Allergies: 05:52 No Known Allergies; tw5 - Home Meds: 05:54 clopidogrel 75 mg oral tab 1 tab once daily [Active]; levothyroxine 50 mcg cap 1 cap tw5 once daily [Active]; trimethoprim 100 mg Oral tab 1 tab every 12 hours [Active]; amlodipine 5 mg tab 1 tab once daily [Active]; metformin 500 mg Oral Tb24 1 tab once daily [Active]; Nifedipine ER Oral 60 mg [Active]; sertraline 100 mg oral tab 1 tab once daily [Active]; - PMHx: 05:52 Dementia; Hypertension; TIA; tw5 - Immunization history:: Flu vaccine is not up to date. - Social history:: Smoking status: Patient denies any tobacco usage or history of. - Family history:: not pertinent. ROS: 05:44 Constitutional: Negative for fever, chills, and weight loss, Eyes: Negative for injury, christopher pain, redness, and discharge, ENT: Negative for injury, pain, and discharge, Neck: Negative for injury, pain, and swelling, Cardiovascular: Negative for chest pain, palpitations, and edema, Respiratory: Negative for shortness of breath, cough, wheezing, and pleuritic chest pain, Abdomen/GI: Negative for abdominal pain, nausea, vomiting, diarrhea, and constipation, Back: Negative for injury and pain, : Negative for injury, bleeding, discharge, and swelling, Skin: Negative for injury, rash, and discoloration, Neuro: Negative for headache, weakness, numbness, tingling, and seizure, Psych: Negative for depression, anxiety, suicide ideation, homicidal ideation, and hallucinations, Allergy/Immunology: Negative for hives, rash, and allergies, Endocrine: Negative for neck swelling, polydipsia, polyuria, polyphagia, and marked weight changes, Hematologic/Lymphatic: Negative for swollen nodes, abnormal bleeding, and unusual bruising. 05:44 MS/extremity: Positive for decreased range of motion, pain, swelling, of the left hip, lateral aspect of left knee, lateral aspect of left calf, left knee and left dill. Exam: 05:44 Constitutional: This is a well developed, well nourished patient who is awake, alert, christopher and in no acute distress. Head/Face: Normocephalic, atraumatic. Eyes: Pupils equal round and reactive to light, extra-ocular motions intact. Lids and lashes normal. Conjunctiva and sclera are non-icteric and not injected. Cornea within normal limits. Periorbital areas with no swelling, redness, or edema. ENT: Nares patent. No nasal discharge, no septal abnormalities noted. Tympanic membranes are normal and external auditory canals are clear. Oropharynx with no redness, swelling, or masses, exudates, or evidence of obstruction, uvula midline. Mucous membranes moist. Neck: Trachea midline, no thyromegaly or masses palpated, and no cervical lymphadenopathy. Supple, full range of motion without nuchal rigidity, or vertebral point tenderness. No Meningismus. Chest/axilla: Normal chest wall appearance and motion. Nontender with no deformity. No lesions are appreciated. Cardiovascular: Regular rate and rhythm with a normal S1 and S2. No gallops, murmurs, or rubs. Normal PMI, no JVD. No pulse deficits. Respiratory: Lungs have equal breath sounds bilaterally, clear to auscultation and percussion. No rales, rhonchi or wheezes noted. No increased work of breathing, no retractions or nasal flaring. Abdomen/GI: Soft, non-tender, with normal bowel sounds. No distension or tympany. No guarding or rebound. No evidence of tenderness throughout. Back: No spinal tenderness. No costovertebral tenderness. Full range of motion. Female : Normal external genitalia. Skin: Warm, dry with normal turgor. Normal color with no rashes, no lesions, and no evidence of cellulitis. Neuro: Awake and alert, GCS 15, oriented to person, place, time, and situation. Cranial nerves II-XII grossly intact. Motor strength 5/5 in all extremities. Sensory grossly intact. Cerebellar exam normal. Normal gait. Psych: Awake, alert, with orientation to person, place and time. Behavior, mood, and affect are within normal limits. 05:44 Musculoskeletal/extremity: Extremities: grossly normal except: noted in the left leg: decreased ROM, pain, noted in the left hip, lateral aspect of left calf, left knee and left dill: 05:50 ECG was reviewed by the Attending Physician. christopher 08:45 Musculoskeletal/extremity: Extremities: No tenderness or pain present on examination to pm1 distal left femur. Vital Signs: 05:47 BP 210 / 101; Pulse 83; Resp 18; Temp 98.0; Pulse Ox 96% on R/A; Weight 74.84 kg; tw5 Height 5 ft. 2 in. (157.48 cm); Pain 7/10; 06:05 BP 189 / 92; Pulse 72; Resp 18; Pulse Ox 91% ; tw5 08:24 BP 204 / 100; Pulse 69; Resp 19; Pulse Ox 95% on R/A; sm5 09:44 BP 171 / 88; Pulse 65; Resp 17 S; Pulse Ox 95% on R/A; sm5 10:56 BP 182 / 91; Pulse 71; Resp 18; Pulse Ox 96% ; sm5 05:47 Body Mass Index 30.18 (74.84 kg, 157.48 cm) tw5 [place] Coma Score: 05:44 Eye Response: spontaneous(4). Verbal Response: oriented(5). Motor Response: obeys christopher commands(6). Total: 15. MDM: 05:32 Patient medically screened. christopher 05:47 Differential diagnosis: closed fracture, contusion, hip fracture, intertrochanteric christopher fracture, femoral neck fracture, femoral shaft fracture. Data reviewed: vital signs, nurses notes, lab test result(s), EKG, radiologic studies, plain films. Data interpreted: gut carrier: rate is 85 beats/min, rhythm is regular, Pulse oximetry: on room air is 96 %. Test interpretation: by ED physician or midlevel provider: ECG, plain radiologic studies. Counseling: I had a detailed discussion with the patient and/or guardian regarding: the historical points, exam findings, and any diagnostic results supporting the discharge/admit diagnosis, lab results, radiology results. 09:26 ED course: Patient ambulated to restroom with minimal assistance from RN. Negative CT pm1 and xrays for fractures. 10:21 Counseling: I had a detailed discussion with the patient and/or guardian regarding: the pm1 historical points, exam findings, and any diagnostic results supporting the discharge/admit diagnosis, lab results, radiology results, the need for outpatient follow up, a family practitioner, to return to the emergency department if symptoms worsen or persist or if there are any questions or concerns that arise at home. 10:27 ED course: RN reports elevated BP. Patient did not take home medications today. will pm1 give patient her BP medications for this AM. 10:39 ED course: Skin examination negative for abscess, cellulitis. Negative UA, urine pm1 culture, and chest xray. Patient afebrile. No signs or symptoms of infection. Will discharge the patient home with pain mediations for contusion to left hip and follow up with PCP . 10/19 05:39 Order name: Basic Metabolic Panel [facility] 10/19 05:39 Order name: CBC with Diff [facility] 10/19 05:39 Order name: LFT's [facility] 10/19 07:26 Order name: Basic Metabolic Panel; Complete Time: 07:52 EDMS 10/19 07:26 Order name: Liver (Hepatic) Function; Complete Time: 07:52 EDMS 10/19 07:26 Order name: Troponin I; Complete Time: 07:52 EDMS 10/19 07:26 Order name: NT PRO-BNP; Complete Time: 07:52 EDMS 10/19 07:26 Order name: Magnesium; Complete Time: 07:52 EDMS 10/19 07:26 Order name: CBC with Automated Diff; Complete Time: 07:52 EDMS 10/19 07:26 Order name: Protime (+INR); Complete Time: 07:52 ED[facility] 10/19 07:26 Order name: SARS-COV-2 RT PCR; Complete Time: 07:52 [facility] 10/19 07:26 Order name: Manual Differential; Complete Time: 07:52 [facility] 10/19 07:26 Order name: Urine Dipstick-Ancillary; Complete Time: 07:52 [facility] 10/19 08:31 Order name: Urine Microscopic Only pm1 10/19 08:31 Order name: Urine Microscopic Only; Complete Time: 09:57 [facility] 10/19 08:42 Order name: Urine Dipstick-Ancillary; Complete Time: 08:44 [facility] 10/19 05:39 Order name: Cardiac monitoring; Complete Time: 05:56 [facility] 10/19 05:39 Order name: EKG - Nurse/Tech; Complete Time: 05:56 [facility] 10/19 05:39 Order name: IV Saline Lock; Complete Time: 05:56 [facility] 10/19 05:39 Order name: Labs collected and sent; Complete Time: 05:56 [facility] 10/19 05:39 Order name: O2 Per Protocol; Complete Time: 05:55 [facility] 10/19 05:39 Order name: O2 Sat Monitoring; Complete Time: 05:56 [facility] 10/19 05:39 Order name: Urine Dipstick-Ancillary (obtain specimen); Complete Time: 08:56 [facility] 10/19 07:26 Order name: Chest Single View; Complete Time: 08:03 [facility] 10/19 07:26 Order name: Pelvis; Complete Time: 08:03 [facility] 10/19 07:26 Order name: Knee Left 3 View; Complete Time: 08:05 [facility] 10/19 07:26 Order name: Femur Left; Complete Time: 08:05 [facility] 10/19 07:26 Order name: Tib Fib Left; Complete Time: 08:03 [facility] 10/19 07:26 Order name: EKG Electrocardiogram [facility] 10/19 07:26 Order name: Pelvis Wo Cont; Complete Time: 08:03 EDMS EC:50 Rate is 73 beats/min. Rhythm is regular. QRS [place] is Normal. MS interval is normal. QRS christopher interval is normal. QT interval is normal. No Q waves. T waves are Normal. No ST changes noted. Clinical impression: NSR w/ Non-specific ST/T Changes and No evidence of ischemia. Interpreted by me. Reviewed by me. Administered Medications: 05:59 Drug: NS 0.9% 500 ml Route: IV; Rate: bolus; Site: left forearm; tw5 06:00 Drug: morphine 2 mg Route: IVP; Site: left forearm; tw5 06:00 Drug: Zofran (Ondansetron) 4 mg Route: IVP; Site: left forearm; tw5 06:37 Follow up: Response: No adverse reaction tw5 06:47 Drug: NS 0.9% 1000 ml Route: IV; Rate: 125 ml/hr; Site: left forearm; tw5 08:50 Drug: morphine 2 mg Route: IVP; Site: left forearm; sm5 10:50 Drug: Norvasc (amlodipine) 5 mg Route: PO; sm5 10:50 Drug: NIFEdipine 60 mg Route: PO; 5 Disposition: 10/20 09:24 Co-signature as Attending Physician, Kartik Pichardo MD I agree with the assessment and christopher plan of care. Disposition Summary: 10/19/21 10:42 Discharge Ordered Location: Home pm1 Problem: new pm1 Symptoms: have improved pm1 Condition: Stable pm1 Diagnosis - Fall on same level from slipping, tripping and stumbling without subsequent pm1 striking against object - Contusion of left hip pm1 Followup: pm1 - With: Emergency Department - When: As needed - Reason: Worsening of condition Followup: pm1 - With: Private Physician - When: 2 - 3 days - Reason: Recheck today's complaints, Continuance of care, Re-evaluation by your physician Discharge Instructions: - Discharge Summary Sheet pm1 - Contusion pm1 - Fall Prevention in the Home, Adult pm1 - Hip Pain pm1 Forms: - Medication Reconciliation Form pm1 - Thank You Letter pm1 - Antibiotic Education pm1 - Prescription Opioid Use pm1 Prescriptions: - Tramadol 50 mg Oral Tablet - take 1 tablet by ORAL route every 8 hours as needed; 12 tablet; Refills: 0, pm1 Product Selection Permitted Signatures: Dispatcher [employer] Kartik Lara MD MD cha Marinas, Patrick, NP BONE PULLER pm1 Celeste Morgan tw5 Mariola Jacob RN RN sm5 Corrections: (The following items were deleted from the chart) 10/19 07:26 07:26 Hip Left 2 View ordered. EDMS EDMS 07:32 07:27 Chest Single View+RAD.RAD.BRZ ordered. EDMS EDMS 07:32 07:27 Pelvis+RAD.RAD.BRZ ordered. EDMS EDMS 07:32 07:27 Hip Left 2 View+RAD.RAD.BRZ ordered. EDMS EDMS 07:32 07:27 Femur Left+RAD.RAD.BRZ ordered. EDMS EDMS 07:32 07:27 Knee Left 3 View+RAD.RAD.BRZ ordered. EDMS EDMS 07:32 07:27 Tib Fib Left+RAD.RAD.BRZ ordered. EDMS EDMS 10:04 07:27 CBC with Automated Diff ordered. EDMS EDMS 10:04 07:27 PROTIME (+INR)+COAG.LAB.BRZ ordered. EDMS EDMS 10:05 07:27 Basic Metabolic Panel ordered. EDMS EDMS 10:05 07:27 Liver (Hepatic) Function ordered. EDMS EDMS 10:05 07:27 MAGNESIUM+C.LAB.BRZ ordered. EDMS EDMS 10:05 07:27 PROBNP+C.LAB.BRZ ordered. EDMS EDMS 10:05 07:27 TROPONIN (EMERG DEPT USE ONLY)+C.LAB.BRZ ordered. EDMS EDMS
[2021-10-19 11:22] VITALS: TEMP 98
[2021-10-19 11:27] VITALS: BP 182/91; O2SAT 96
--- NOTE | 2021-10-20 08:05 | EKG ---
Test Date: 2021-10-19 Test Time: 05:40:13 Wireless Operator: TW MEASUREMENT RESULTS: Intervals: Rate: 73 MS: 142 QRSD: 88 QT: 412 QTc: 453 [place]: P: 48 MS: 142 QRS: -17 T: 58 INTERPRETIVE STATEMENTS: Sinus rhythm with premature atrial complexes with aberrant conduction Left ventricular hypertrophy with repolarization abnormality Cannot rule out Septal infarct, age undetermined Abnormal ECG Compared to ECG 03/26/2020 15:24:02 Atrial premature complex(es) now present Aberrant conduction of supraventricular beat(s) now present Myocardial infarct finding now present Left-axis deviation no longer present Electronically Signed On 10-20-21 08:03:21 CAR STARTER by Alex Pena
== END 2021-10-19 11:15 | disposition home or self-care (01) ==
LOC: ER 05:26
DX: S70.02XA Contusion of left hip, initial encounter (principal); W01.0XXA Fall on same level from slipping, tripping and stumbling without subsequent striking against object, initial encounter; F03.90 Unspecified dementia, unspecified severity, without behavioral disturbance, psychotic disturbance, mood disturbance, and anxiety; I10 Essential (primary) hypertension; Z86.73 Personal history of transient ischemic attack (TIA), and cerebral infarction without residual deficits
CPT/HCPCS: 36415; 71045; 72170; 72192; 80048; 80076; 81003; 81015; 83735; 83880; 84484; 85025; 85610; 93005; 96374; 96375; 99285; J2270; J2405; J7030; J7040; U0003

== ENCOUNTER 2021-10-20 08:48 | Inpatient (IN) | payer OTHER ==
--- OUTSIDE RECORDS SUMMARY | 2021-10-20 08:52 | XMS REPORT | Continuity of Care Document ---
:1935 Author Organization [facility] t Address [address] [place] [address] Care Team Providers Name Role Phone AALIYAH Primary Care Physician Unavailable Mark QUIROZ, G Attending Clinician Zhaeer FLORES Attending Clinician Unavailable ASHISH Attending Clinician [...] rs active active ity of problems problems [facility] Allergies, Adverse Reactions, Alerts Allergy Allergy Status Severity Reaction(s) Onset Inactive Treating Comm ents Source Name Type Date Date Clinician NO KNOWN Drug Active Univers ALLERGIE Class ity of S [facility] Social History Social Habit Start Date Stop Date Quantity Comments Source Sex Assigned At Uni versity [facility] Smoking Status Start Date Stop Date Source Unknown if ever [facility] Medications Ordered Filled Start Stop Current Ordering Indication Dosage Frequency Signature Comments Components Source Medication Medication Date Date Medication? Clinician (SIG) Name Name Trimethopri Trimethopri 2020- No Johana [address] [facility] m 04-02 [place] Marieekes - 00:00: 00:00 [facility] 00 :00 [facility] cefTRIAXone 2020- No 1000mg 1,000 mg, Univers (ROCEPHIN) -17 02- Slow IV ity o f injection 20:15: 19:54 [place], [place] 1,000 mg 00 :00 ONCE, 1 Medical dose, [facility] 02/18/20 at 1515, STAT
Re ason for Anti-Infec tive: Documented Infection< br>Documen karolina Infection Site: Urine
D uration of Therapy: 7 days KCL 2019-0 2020- No 40meq 40 mEq, Univers (KLOR-CON 02-17 Oral, ity of M20) tablet 19:00[place] 17:57 [place] :00 dose, [facility] 02/18/20 at Branch 1400, ENEDINA metformin 2019-0 Yes 500mg Take 500 Uni vers HCl 3-24 mg by ity of (METFORMIN 18:47: [place] 34 (two) Medical times [place] daily. losartan 2019-0 Yes 100mg Take 100 [...] 09 Medical Branch cefpodoxime 2020-0 2020- No [id number] 200mg Take 1 Univers 200 mg -02-25 tablet by ity of tablet 00:00: 04:59 mouth 2 [place] 00 :00 (two) Medical times [place] daily for 7 days. Clopidogrel Clopidogrel Yes Johana [address] [facility] Bisulfate Bisulfate [place] [facility] - [facility] Metformin Metformin Yes Johana [address] [facility] HCl HCl [place] with a [facility] - meal [facility] l [facility] B1 Natural B1 Natural Yes Johana as [facility] [place] directed [facility] Rosuvastati Rosuvastati Yes Johana [address] [facility] n Calcium n Calcium [facility] - [facility] Nifedical Nifedical Yes Johana [address] [facility] XL XL [facility] Losartan Losartan Yes Johana [address] Potassium Potassium [place] - [facility] Hydrochloro Hydrochloro Yes Johana as [facility] thiazide thiazide [place] directed [facility] Levothyroxi Levothyroxi Yes Johana [address] [facility] [facility] ne Sodium ne Sodium [place] in the [facility] - morning on Memoria an empty l stomach [facility] Estradiol Estradiol Yes Johana as [facility] Vital Signs Vital Name Observation Time Observation Value Comments Source Systolic blood 2020-02-18 20:00:00 138 mm[Hg] Univer sity of pressure [facility] Diastolic blood 2020-02-18 20:00:00 98 mm[Hg] Unive rsity of [facility] Heart rate 2020-02-18 20:00:00 78 /min [facility] Respiratory rate 2020-02-18 20:00:00 18 /min [facility] Oxygen saturation in 2020-02-18 20:00:00 97 /min University of Arterial blood by [facility] Pulse oximetry Branch Body temperature 2020-02-18 15:56:00 37.06 Zohreh [facility] Body height 2020-02-18 15:56:00 160 cm [facility] Body weight 2020-02-18 15:56:00 74.39 kg [facility] BMI 2020-02-18 15:56:00 29.05 kg/m2 [facility] Systolic blood 2020-02-18 20:00:00 138 mm[Hg] Univer sity of [facility] Diastolic blood 2020-02-18 20:00:00 98 mm[Hg] Unive rsity of pressure [facility] Heart rate 2020-02-18 20:00:00 78 /min [facility] Respiratory rate 2020-02-18 20:00:00 18 /min [facility] Oxygen saturation in 2020-02-18 20:00:00 97 /min University of Arterial blood by [facility] Pulse oximetry Branch Body temperature 2020-02-18 15:56:00 37.06 Zohreh [facility] Body height 2020-02-18 15:56:00 160 cm [facility] Body weight 2020-02-18 15:56:00 74.39 kg [facility] BMI 2020-02-18 15:56:00 29.05 kg/m2 [facility] Procedures Procedure Date / Time Performing Clinician Source Performed BASIC METABOLIC PANEL 2020-02-18 19:53:[address] [facility] (NA, K, CL, CO2, [facility] GLUCOSE, BUN, CREATININE, CA) URINALYSIS 2020-02-18 17:49:00 Lazara Flores [facility] XR CHEST 1 VW 2020-02-18 17:08:43 Lazara Flores [facility] ADC,CLC OR LCC ONLY - 2020-02-18 17:03:00 Lazara Flores [facility] INFLUENZA A & B DIRECT Medical B ranch ANTIGEN MAGNESIUM 2020-02-18 17:02:00 Lazara Flores [facility] TROPONIN I 2020-02-18 17:02:00 Lazara Flores [facility] COMP. METABOLIC PANEL 2020-02-18 17:02:00 Lazara Flores [facility] ([id number]) [facility] CBC WITH DIFFERENTIAL 2020-02-18 17:02:00 Lazara Flores [facility] N-TERMINAL PRO-BNP 2020-02-18 17:02:00 Lazara Flores [facility] EKG-12 LEAD 2020-02-18 16:12:34 Lazara Flores [facility] NOTICE OF PRIVACY 2020-02-18 15:44:39 Doctor Unassigned, No Univ [facility] PRACTICES Name [facility] CONSENT/REFUSAL FOR 2020-02-18 15:44:29 Doctor Unassigned, No [facility] Name [facility] Encounters Start End Encounter Admission Attending Care Care Encounter Source Date/Time Date/Time Type Type Clinicians Facility Department ID 2020-11-10 2020-11-10 Outpatient [facility] [id number] [facility] Jolene Yusuf ent Clinics 2020-11-05 2020-11-05 Outpatient [facility] [id number] [facility] 2020-11-04 2020-11-04 Outpatient [facility] [id number] [facility] 2020-11-04 2020-11-04 Outpatient [facility] [id number] [facility] 2020-09-02 2020-09-02 Outpatient [facility] [id number] [facility] 2020-04-02 2020-04-02 [facility] [id number] 14:30:00 14:30:00 t Specialty/U Jaylene kes - Specialty rology Memori a /Urology Clinic l Clinic Outpati ent [facility] 2020-02-18 2020-02-18 [facility] [id number] 10:47:51 16:20:00 Lazara [place] [id number] [place] [id number] [place] [id number] [facility] 2020-02-18 2020-02-18 Emergency [facility] [id number] [facility] 10:47:51 16:20:00 Lazara Machucaton [id number] ity of [place] [id number] [facility] [id number] [address] 2020-02-18 2020-02-18 Emergency X [facility] ERT [id number] Univers 10:47:51 16:20:00 LAZARA ity [facility] 2019-12-27 2019-12-27 [facility] [id number] 15:30:00 15:30:00 t Specialty/U Jaylene kes - Specialty rology Memori a /Urology Clinic l Clinic Outpati ent Clinics 2019-09-24 2019-09-27 Inpatient [facility] [id number] [place] 00:00:00 00:00:[address] 2019-03-26 2019-03-26 Emergency E [facility] 7502 FB 12:27:00 12:27:00 2016-11-14 2016-11-14 Emergency E TORI [facility] [id number] [facility] 14:58:00 16:13:00 [facility] Results Test Description Test Time Test Comments Results Result Comments Source BASIC METABOLIC PANEL (NA, K, CL, CO2, GLUCOSE, BUN, 2020-01 20:16:00 CREATININE, CA) Test Item Value Reference Range Interpretation Comme nts NA (test code = 3029039557) 137 mmol/L 135-145 K (test code = 4793302237) 3.3 mmol/L 3.5-5 L CL (test code = 1077393421) 100 mmol/L 98-108 CO2 TOTAL (test code = 9150524481) 27 mmol/L 23-31 AGAP (test code = 8858631539) 2-16 BUN (test code = 6777364457) 17 mg/dL 7-23 GLUCOSE (test code = 5098570859) 103 mg/dL 70-110 CREATININE (test code = 0.92 mg/dL 0.5-1.04 6131345026) CALCIUM (test code = 5188195185) 9.5 mg/dL 8.6-10.6 eGFR Calculation (Non- mL/min/1.73m2 [place]) (test code = 1753917127) eGFR Calculation ( mL/min/1.73m2 [place]) (test code = 3250063153) SHAHEED (test code = SHAHEED) Association of [...] tests). Lab Interpretation (test code = Abnormal 72008-3) [facility] 18:41:00 Test Item Value Reference Range Interpretation Comments APPEARANCE (test code = Hazy Clear A 9785695262) COLOR (test code = Yellow Yellow 2835451642) PH (test code = 4.8-8.0 1216836143) SP GRAVITY (test code = 1.003-1.030 2060243074) GLU U QUAL (test code = Normal Normal 3720001145) BLOOD (test code = Negative Negative 6550346215) KETONES (test code = Negative Negative 0411549266) PROTEIN (test code = Negative Negative 2887-8) UROBILIN (test code = Normal Normal 3421600482) BILIRUBIN (test code = Negative Negative 3064289959) NITRITE (test code = Negative Negative 4475062381) LEUK CHRISTOPHER (test code = 75/uL Negative A 7913481272) RBC/HPF (test code = See_Comment [Autom ated message] 2611720462) The system [employer] generated this result transmitted ref erence range: 0 - 3 HP F. The reference range was not used to int erpret this result as normal/abnormal . WBC/HPF (test code = See_Comment H [Autom ated message] 7996922620) The system [employer] generated this result transmitted ref erence range: 0 - 5 HP F. The reference range was not used to int erpret this result as normal/abnormal . BACTERIA (test code = Many Negative A 4677980748) SQ EPITH (test code = HPF 8542420714) HYAL CAST (test code = See_Comment H [Aut omated message] 5776016165) The system [employer] generated this result transmitted ref erence range: <=2 LPF. The reference range was not used to int erpret this result as normal/abnormal . Lab Interpretation (test Abnormal code = 42833-3) [facility] 18:12:00 Test Item Value Reference Range Interpretation Comments MAGNESIUM (test code = 5724620560) 1.8 mg/dL 1.7-2.4 Lab Interpretation (test code = Normal 13314-1) [facility] [id number] 17:39:00 Test Item Value Reference Range Interpretation Comments TROPONIN I (test 0.018 ng/mL See_Comment [Automated code = 2693672578) message] The system which generated this result [...] ? Lab Interpretation Normal (test code = 16159-8) [facility] [id number] 17:35:00 Test Item Value Reference Range Interpretation Comments NT-proBNP (test code 126 pg/mL See_Comment [Autom ated = 9605096997) message] The system which generated this result transmitted reference range : <=450. The reference range was not used to interpret this result as normal/abnormal . SHAHEED (test code = SHAHEED) Biotin has been reported to cause a negative bias, interpret results relative to patient's use of biotin. Lab Interpretation Normal (test code = 77627-1) [facility] ONLY - INFLUENZA A & B DIRECT [id number] 17:33:00 Test Item Value Reference Range Interpretation Comments Influenza A (test code = 20397-2) Negative Negative Influenza B (test code = 01288-1) Negative Negative Lab Interpretation (test code = Normal 52379-3) [facility]. METABOLIC PANEL (07601)2020-02-18 17:28:00 Test Item Value Reference Range Interpretation Comments NA (test code = 135 mmol/L 135-145 2721098906) K (test code = 2.7 mmol/L 3.5-5 LL 5245483426) CL (test code = 99 mmol/L 98-108 6548586891) CO2 TOTAL (test code = 24 mmol/L 23-31 0337082339) AGAP (test code = 2-16 6288791786) BUN (test code = 18 mg/dL 7-23 9953606046) GLUCOSE (test code = 211 mg/dL 70-110 H 1374606745) CREATININE (test code = 0.99 mg/dL 0.5-1.04 6035370040) TOTAL BILI (test code = 0.6 mg/dL 0.1-1.3 0419164985) CALCIUM (test code = 9.5 mg/dL 8.6-10.6 3582962994) T PROTEIN (test code = 7.9 g/dL 6.3-8.2 7903008390) ALBUMIN (test code = 4.7 g/dL 3.5-5 6852681267) ALK PHOS (test code = 72 U/L 34-122 8064519230) ALTv (test code = 16 U/L 5-35 1742-6) AST(SGOT) (test code = 24 U/L 13-40 3610680533) eGFR Calculation mL/min/1.73m2 (Non-) (test code = 8313376884) eGFR Calculation mL/min/1.73m2 () (test code = 1004120144) SHAHEED (test code = SHAHEED) Association of [...] tests). Lab Interpretation Abnormal (test code = 96368-3) [facility] WITH [id number] 17:16:00 Test Item Value Reference Range Interpretation Comments WBC (test code = See_Comment H [Automated 4453-2) message] The sy stem which generated this result transmitted reference range : 4.30 - 11.10 10*3/?L. The reference range was not used to interpret this result as normal/abnormal . RBC (test code = See_Comment [Automated 029-8) message] The sy stem which generated this [...] (test code = 37.9 fL 39-49.9 L 41308-9) RDW-CV (test code = 13.1 % 12-15.5 788-0) PLT (test code = See_Comment [Automated 777-3) message] The sy stem which generated this result transmitted reference range : 166 - 358 10*3/ ?L. The reference r amado was not used to interpret this result as normal/abnormal . MPV (test code = 9.2 fL 9.5-12.9 L 79799-2) NRBC/100 WBC (test See_Comment [Automat ed code = 9056395236) message] The system which generated this result transmitted reference range : 0.0 - 10.0 /100 WBCs. The refer ence range was not u sed to interpret th is result as normal/abnormal . NRBC x10^3 (test code <0.01 See_Comment [Auto mated = 7133740603) message] The s ystem which generated this result transmitted reference range : 10*3/?L. The reference range was not used to interpret this result as normal/abnormal . GRAN MAT (NEUT) % 76.2 % (test code = 770-8) IMM GRAN % (test code 0.60 % = 0637176838) LYMPH % (test code = 12.0 % 736-9) MONO % (test code = 8.0 % 5905-5) EOS % (test code = 2.5 % 713-8) BASO % (test code = 0.7 % 706-2) GRAN MAT x10^3(ANC) 9.29 10*3/uL 1.88-7.09 H (test code = 6515346752) IMM GRAN x10^3 (test 0.07 10*3/uL 0-0.06 H code = 2574990748) LYMPH x10^3 (test code 1.46 10*3/uL 1.32-3.29 = 731-0) MONO x10^3 (test code 0.98 10*3/uL 0.33-0.92 H = 742-7) EOS x10^3 (test code = 0.31 10*3/uL 0.03-0.39 711-2) BASO x10^3 (test code 0.09 10*3/uL 0.01-0.07 H = 704-7) Lab Interpretation Abnormal (test code = 01997-6) [facility] 1 [id number] 17:10:29HISTORY: Cough. TECHNIQUE: Portable AP erect view of the chest is obtained. FINDINGS: No acute pneumonia. No pneumothorax or pleural effusion orpulmonary congestion detected. Cardiac size is within normal limits. Mildelevation of the right hemidiaphragm, thoracic dextroscoliosis withdegenerative spondylosis and calcified granuloma in the left lower lungnoted. CONCLUSIONS: No signs of acute cardiopulmonary disease.[facility], Radiant Results Inft User - 02/18/2020 12:11 PM CDTHISTORY: Cough.TECHNIQUE: Portable AP erect view of the chest is obtained.FINDINGS: No acute pneumonia. No pneumothorax or pleural effusion orpulmonary congestion detected. Cardiac size is within normal limits. Mildelevation of the right hemidiaphragm, thoracic dextroscoliosis withdegenerative spondylosis and calcified granuloma inthe left lower lungnoted.CONCLUSIONS: No signs of acute cardiopulmonary disease.[facility]"
[2021-10-20 09:18] LABS: Absolute Lymphocytes (CBC) 1.4 K/uL (0.7-4.9); Basophils % 0.5 % (0-1.3); Hematocrit 38.2 % (36.0-45.0); Lymphocytes % 8.9 % (15.3-44.8); RBC Red Blood Cell Count 4.89 M/uL (3.86-4.86)
[2021-10-20 09:23] LABS: Protime INR 1.04
[2021-10-20 09:33] LABS: Potassium 4.2 mmol/L (3.5-5.1)
--- NOTE | 2021-10-20 09:42 | RAD REPORT ---
EXAM DESCRIPTION: CT - Ct Stroke Brain Wo Cont - 10/20/2021 9:27 am CLINICAL HISTORY: WEAKNESS COMPARISON: Head C Spine Mpr Wo Con dated 03/26/2020; Chest Single View dated 10/19/2021 TECHNIQUE: Axial 5 millimeter thick images of the head were obtained without IV contrast. All CT scans are performed using dose optimization technique as appropriate and may include automated exposure control or mA/KV adjustment according to patient size. FINDINGS: No intracranial hemorrhage, mass, or cerebral edema. No acute cortical based infarction id entified. No cortical edema or sulcal effacement seen. Atrophy is mild to moderate for age with ventr icles in proportion to the volume loss. Atrophy and ventriculomegaly are stable. Patient has very pronounced chronic ischemic change throughout the cerebral white matter and to a les ser degree the basal ganglia and thalamus tissues. A 10 x 6 mm area of decreased attenuation is prese nt in the curt just left of midline. This is questionably new from 2020. No extra-axial fluid collect ions. [place] matter-white matter differentiation is preserved.Dense arterial tree calcifications are p resent. No globe or orbital content acute finding. Visualized portions of the mastoid air cells, paranasal sinuses, and orbits are unremarkable. Findings telephoned to Colin Smith at 9:37 a.m. IMPRESSION: No intracranial hemorrhage and no acute cortical based infarction. Questionable new low-density area is left-side curt is potentially acute nonhemorrhagic CVA. Patient has advanced chronic ischemic change in the cerebral white matter which can also mask nonhemorrhagic CVA. Follow-up MR imaging can be performed as warranted.
--- NOTE | 2021-10-20 09:53 | RAD REPORT ---
EXAM DESCRIPTION: RAD - Chest Single View - 10/20/2021 9:38 am CLINICAL HISTORY: weakness COMPARISON: October 19 ; February 2020 TECHNIQUE: AP portable chest image was obtained 10/20/2021 9:38 am . FINDINGS: Lung volumes are very low accentuating the interstitial pattern. No peripheral mass or con solidation identifiable. No significant failure or volume overload identifiable. Heart and vasculatur e are normal. No measurable pleural effusion and no pneumothorax. No acute bony abnormality seen. No acute aortic findings suspected. IMPRESSION: Limited shallow inspiration exam without acute cardiopulmonary finding. No significant changes from the prior day imaging.
[2021-10-20] MEDS ORDERED: ASPIRIN 81 MG CHEWABLE TABLET ONE (10:19)
--- NOTE | 2021-10-20 10:21 | RAD REPORT ---
EXAM DESCRIPTION: CT - Neck Angio - 10/20/2021 10:11 am CLINICAL HISTORY: left sided weakness TECHNIQUE: During dynamic enhancement using nonionic IV contrast, axial 2 mm thick images of the nec k were obtained. Sagittal and axial reconstruction images were generated using MIP technique and revi ewed. All CT scans are performed using dose optimization technique as appropriate and may include automated exposure control or mA/KV adjustment according to patient size. COMPARISON: None FINDINGS: No aneurysm or vascular malformation identified. No carotid or vertebral dissection. No aortic arch or great vessel origin abnormality seen. Vertebral artery origins are tortuous pole wi thout dissection or stenosis. Carotid vasculature also seen as tortuous without dissection, stenosis or acute finding. Partially imaged subclavian arteries are also unremarkable. No basilar artery abnor mality identified. Thyroid gland is mildly prominent. No large thyroid mass lesion identifiable. Superior portion of thoracic esophagus appears circumferentially thickened. This area is not adequate ly assessed on CT angio neck examination. IMPRESSION: CT angio neck examination shows no dissection, stenosis or significant vascular finding . Questionable thickening of the upper thoracic esophagus not adequately assessed on this study.
--- NOTE | 2021-10-20 10:24 | RAD REPORT ---
EXAM DESCRIPTION: CT - Head angio - 10/20/2021 10:12 am CLINICAL HISTORY: left sided weakness, acute stroke symptoms TECHNIQUE: During dynamic enhancement using nonionic IV contrast, axial 1 millimeter thick images of the head were obtained. Sagittal and axial reconstruction images were generated using MIP technique and reviewed. All CT scans are performed using dose optimization technique as appropriate and may include automated exposure control or mA/KV adjustment according to patient size. COMPARISON: CT head same date FINDINGS: No aneurysm or vascular malformation identified. Major venous sinuses are patent. Internal carotid and vertebral artery atherosclerotic calcifications are present. No stenosis, named branch occlusion, vasculitis or other significant vascular finding identifiable. IMPRESSION: Negative CT angio head examination for occlusion, significant stenosis or other signifi cant vascular finding. .
[2021-10-20] MEDS ORDERED: NA CHLORIDE 0.9% 500 ML ONE (10:27)
[2021-10-20 10:37] LABS: Urine Blood Negative (Negative); Urine Glucose Negative (Negative); Urine Protein Negative (Negative); Urine Specific Gravity 1.015 (1.005-1.030); Urine pH 5.5 (5.0-7.0)
--- NOTE | 2021-10-20 10:58 | EDPHYS ---
Physician Documentation [facility] Name: Kyung Bonilla Age: 85 yrs Sex: Female : 1935 Arrival Date: 10/20/2021 Time: 08:49 Bed 2 Private MD: ED Physician Jone Wise HPI: 10/20 09:02 This 85 yrs old Female presents to ER via EMS with complaints of weakness, facial droop.jmm 09:02 The patient's problem is reported as a facial droop, on left. Onset: The jmm symptoms/episode began/occurred at an unknown time. Duration: This was a single incident, The episode is continuous. The symptoms are alleviated by nothing. The symptoms are aggravated by nothing. This is an 85-year-old female with a history of dementia, hypertension, TIA, hypothyroidism that presents emerged department with left-sided facial droop along with weakness. Patient was recently evaluated for a fall yesterday in which her left leg was injured. Imaging studies did not reveal any fracture, patient was discharged home. The son states that this morning while helping the patient out of bed that she had increased difficulty walking and attributed to the injury to her leg. While they ate breakfast he noticed a left-sided facial droop and some mild slurred speech. Son states the last time he noticed her normal was last night before she went to sleep. He stated that he had less difficulty moving her before bed.. Historical: - Allergies: 08:53 No Known Allergies; tw2 - Home Meds: 08:53 trimethoprim 100 mg Oral tab 1 tab every 12 hours [Active]; sertraline 100 mg Oral tab tw2 1 tab once daily [Active]; metformin 500 mg Oral Tb24 1 tab once daily [Active]; Nifedipine ER Oral 60 mg [Active]; levothyroxine 50 mcg cap 1 cap once daily [Active]; clopidogrel 75 mg Oral tab 1 tab once daily [Active]; amlodipine 5 mg tab 1 tab once daily [Active]; - PMHx: 08:53 Dementia; Hypertension; TIA; 2019; Hypothyroidism; tw2 - Immunization history:: Adult Immunizations. - Social history:: Smoking status: . ROS: 09:02 Constitutional: Negative for fever, chills, and weight loss, Cardiovascular: Negative jmm for chest pain, palpitations, and edema, Respiratory: Negative for shortness of breath, cough, wheezing, and pleuritic chest pain, Abdomen/GI: Negative for abdominal pain, nausea, vomiting, diarrhea, and constipation. 09:02 MS/extremity: Positive for pain. 09:02 Neuro: Positive for weakness. 09:02 All other systems are negative. Exam: 09:02 Radiologist reports: Nonhemorrhagic [facility] 09:02 Constitutional: This is a well developed, well nourished patient who is awake, alert, and in no acute distress. 09:02 Eyes: EOMI, no conjunctival erythema appreciated ENT: Moist Mucus Membranes Neck: Trachea midline, Supple Chest/axilla: Normal chest wall appearance and motion. Cardiovascular: Regular rate and rhythm. No edema appreciated Respiratory: Normal respirations, no respiratory distress appreciated Abdomen/GI: Non distended, soft Back: Normal ROM Skin: General appearance color normal 09:02 Head/face: Noted is left-sided facial droop. 09:02 Neuro: Orientation: is normal, Mentation: is normal, Memory: is normal, Gait: unable to assess. Vital Signs: 08:51 BP 129 / 60; Pulse 88; Resp 20; Temp 97.9(TE); Pulse Ox 95% on R/A; Height 5 ft. 2 in. tw2 (157.48 cm) (R); Pain 0/10; 08:58 Weight 74.84 kg (R); tw2 09:06 BP 126 / 60; Pulse 84; Resp 18; Pulse Ox 96% on 2 lpm NC; jh6 10:27 BP 92 / 70; Pulse 87; Resp 22; Pulse Ox 95% on R/A; tw2 11:30 BP 139 / 58; Pulse 79; Resp 17; Pulse Ox 96% on R/A; tw2 12:30 BP 121 / 77; Pulse 82; Resp 19; Pulse Ox 95% on R/A; tw2 08:58 Body Mass Index 30.18 (74.84 kg, 157.48 cm) tw2 NIH Stroke Scale Scores: 09:02 NIHSS Score: 4 syed MDM: 09:02 Patient medically screened. [facility] 10:56 Data reviewed: vital signs, nurses notes. Counseling: I had a detailed discussion with syed the patient and/or guardian regarding: the historical points, exam findings, and any diagnostic results supporting the discharge/admit diagnosis, lab results, radiology results, the need for further work-up and treatment in the hospital. ED course: I discussed the patient with Dr. Wise whom accepted the patient to his service. . 10/20 09:03 Order name: Basic Metabolic Panel; Complete Time: 09:35 [facility] 10/20 09:03 Order name: CBC with Diff; Complete Time: 09:21 [facility] 10/20 09:03 Order name: Protime (+inr); Complete Time: 09:27 [facility] 10/20 09:03 Order name: Ptt, Activated; Complete Time: 09:27 [facility] 10/20 10:37 Order name: Urine Dipstick-Ancillary; Complete Time: 10:51 [facility] 10/20 10:52 Order name: SARS-COV-2 RT PCR (Document "Date of Onset" if Symptomatic) [facility] 10/20 09:03 Order name: CT Stroke Brain w/o Contrast; Complete Time: 09:43 [facility] 10/20 09:03 Order name: Stroke CXR 1 View; Complete Time: 09:58 [facility] 10/20 09:04 Order name: CT Head Angio; Complete Time: 10:25 [facility] 10/20 09:04 Order name: CT Neck Angio; Complete Time: 10:22 [facility] 10/20 10:32 Order name: MRI Stroke Protocol [facility] 10/20 09:03 Order name: EKG; Complete Time: 09:04 [facility] 10/20 09:03 Order name: Cardiac monitoring; Complete Time: 09:05 [facility] 10/20 09:03 Order name: EKG - Nurse/Tech; Complete Time: 09:05 [facility] 10/20 09:03 Order name: IV Saline Lock; Complete Time: 10:19 [facility] 10/20 09:03 Order name: Labs collected and sent; Complete Time: 09:05 [facility] 10/20 09:03 Order name: NPO; Complete Time: 09:05 [facility] 10/20 09:03 Order name: O2 Per Protocol; Complete Time: 09:05 [facility] 10/20 09:03 Order name: O2 Sat Monitoring; Complete Time: 09:05 [facility] 10/20 09:03 Order name: Stroke Swallow Screen; Complete Time: 10:28 [facility] 10/20 10:31 Order name: Urine Dipstick-Ancillary (obtain specimen); Complete Time: 10:53 [facility] 10/20 11:37 Order name: CONS Physician Consult [facility] 10/20 11:41 Order name: Physical Therapy Consult [facility] 10/20 11:41 Order name: Speech Therapy Consult [facility] Administered Medications: 10:26 Drug: Aspirin Chewable Tablet 324 mg Route: PO; tw2 10:53 Follow up: Response: No adverse reaction tw2 10:36 Drug: NS 0.9% 500 ml Route: IV; Rate: bolus; Site: left antecubital; tw2 11:30 Follow up: Response: No adverse reaction; IV Status: Completed infusion; IV Intake: tw2 500ml 11:27 Drug: foLIC Acid 1 mg Route: IVPB; Site: left forearm; tw2 11:30 Follow up: Response: No adverse reaction; IV Status: Completed infusion; IV Intake: tw2 0.02ml Disposition: 17:33 Co-signature as Attending Physician, Jone Wise MD I agree with the assessment and rn plan of care. Attestation: The patient's history, exam findings, diagnostics, and a summary of any interventions or procedures was reviewed in detail with Colin SCHILLING. Disposition Summary: 10/20/21 10:58 Hospitalization Ordered Hospitalization Status: Inpatient Admission [facility] Provider: Issa Wise Location: Telemetry/MedSurg (Inpatient) [facility] Condition: Stable [facility] Problem: new jmm Symptoms: are unchanged [facility] Bed/Room Type: Standard [facility] Room Assignment: 205(10/20/21 13:09) em1 Diagnosis - Cerebral infarction, unspecified [facility] Forms: - Medication Reconciliation Form [facility] - SBAR form [facility] NIH Stroke Scale - NIH Stroke Score Date: 10/20/2021 Time: 09:02 Total Score = 4 1a. Level of Consciousness (LOC) - 0(Alert) 1b. Level of Consciousness (LOC) (Month \\T\\ Age) - 0(Both) 1c. LOC Commands (Open \\T\\ Closes Eyes/Coil Machine Operator) - 0(Both) 2. Best Gaze (Lateral Gaze Paresis) - 0(Normal) 3. Visual Field Loss - 0(No visual loss) 4. Facial Palsy - 2(Partial paralysis) 5a. Left Arm: Motor (10-second hold) - 1(Drift) 5b. Right Arm: Motor (10-second hold) - 0(No drift) 6a. Left Leg: Motor (5-second hold - always test supine) - 1(Drift) 6b. Right Leg: Motor (5-second hold - always test supine) - 0(No drift) 7. Limb Ataxia (finger/nose \\T\\ heel/dill - test with eyes open) - 0(Absent) 8. Sensory Loss (pinprick arms/legs/face) - 0(Normal) 9. Best Language: Aphasia (description/naming/reading) - 0(No aphasia) 10. Dysarthria (speech clarity - read or repeat words) - 0(Normal) 11. Extinction and Inattention (visual/tactile/auditory/spatial/personal) - 0(No abnormality) Initials: syed Signatures: Dispatcher [employer] EDColin Manning PA PA jmm Nieto, Roman, MD MD rn Martinez, Eric em1 Usha Keller RN RN tw2 Corrections: (The following items were deleted from the chart) 10:19 09:03 Accucheck ordered. syed tw2 13:09 10:58 lauren em1
--- NOTE | 2021-10-20 10:58 | ER ---
Nurse's Notes [facility] Name: Kyung Bonilla Age: 85 yrs Sex: Female : 1935 Arrival Date: 10/20/2021 Time: 08:49 Bed 2 Private MD: Diagnosis: Cerebral infarction, unspecified Presentation: 10/20 08:51 Chief complaint: EMS states: pt from home. yesterday son reports she had a ground level tw2 fall. came here got morphine and was sent home. was seen last night around 11 pm. this morning her son noticed LEFT sided facial drop. no other weakness. no slurred speech. Coronavirus screen: At this time, the client does not indicate any symptoms associated with coronavirus-19. Ebola Screen: Patient denies travel to an Ebola-affected area in the 21 days before illness onset. Initial Sepsis Screen: Does the patient meet any 2 criteria? No. Patient's initial sepsis screen is negative. Does the patient have a suspected source of infection? No. Patient's initial sepsis screen is negative. Risk Assessment: Do you want to hurt yourself or someone else? Patient reports no desire to harm self or others. Onset of symptoms was October 20, 2021. 08:51 Method Of Arrival: EMS: [facility] tw2 08:51 Acuity: LEONARDO 3 tw2 08:51 Care prior to arrival: None. tw2 Triage Assessment: 08:54 General: Appears in no apparent distress. Behavior is calm, cooperative, appropriate tw2 for age. Pain: Denies pain. 08:55 EENT: No signs and/or symptoms were reported regarding the EENT system. Neuro: Oriented tw2 to person, Moves all extremities. Speech is normal, Facial droop on left. Cardiovascular: Capillary refill < 3 seconds Patient's skin is warm and dry. Respiratory: Airway is patent Respiratory effort is even, unlabored, Respiratory pattern is regular, symmetrical. GI: No signs and/or symptoms were reported involving the gastrointestinal system. Abdomen is round non-distended. Musculoskeletal: Range of motion: intact in all extremities. Historical: - Allergies: 08:53 No Known Allergies; tw2 - Home Meds: 08:53 trimethoprim 100 mg Oral tab 1 tab every 12 hours [Active]; sertraline 100 mg Oral tab tw2 1 tab once daily [Active]; metformin 500 mg Oral Tb24 1 tab once daily [Active]; Nifedipine ER Oral 60 mg [Active]; levothyroxine 50 mcg cap 1 cap once daily [Active]; clopidogrel 75 mg Oral tab 1 tab once daily [Active]; amlodipine 5 mg tab 1 tab once daily [Active]; - PMHx: 08:53 Dementia; Hypertension; TIA; 2019; Hypothyroidism; tw2 - Immunization history:: Adult Immunizations. - Social history:: Smoking status: . Screenin:56 Abuse screen: Denies threats or abuse. Nutritional screening: No deficits noted. tw2 Tuberculosis screening: No symptoms or risk factors identified. Fall Risk Secondary diagnosis (15 points) dementia, TIA, impaired mobility. 10:26 Patient has been NPO before screening. The patient is alert, able to follow commands. tw2 The patient does not exhibit slurred or garbled speech The patient is not exhibiting difficulty speaking. The patient does not exhibit difficulty understanding words. The patient is able to swallow own secretions with no drooling or need for suction. The patient did not tolerate one teaspoon of water. Drooling, immediate coughing, gurgling, or clearing of the throat was noted. Bedside swallow screening discontinued. Patient kept NPO until cleared by Speech Therapy or Physician. The patient failed the bedside swallow screening. The patient will be kept NPO until cleared by Speech Therapy or Physician. Provider notified of bedside swallow screening results: Colin SCHILLING. Assessment: 08:55 Reassessment: provider at bedside at this time. tw2 08:56 Reassessment: see triage assessment. tw2 08:58 Reassessment: pts son at bedside discussing with provider at this time. tw2 10:53 Reassessment: hospitalist Dr. Issa Wise at bedside. tw2 13:10 Reassessment: pt in MRI at this time. tw2 Vital Signs: 08:51 BP 129 / 60; Pulse 88; Resp 20; Temp 97.9(TE); Pulse Ox 95% on R/A; Height 5 ft. 2 in. tw2 (157.48 cm) (R); Pain 0/10; 08:58 Weight 74.84 kg (R); tw2 09:06 BP 126 / 60; Pulse 84; Resp 18; Pulse Ox 96% on 2 lpm NC; 6 10:27 BP 92 / 70; Pulse 87; Resp 22; Pulse Ox 95% on R/A; tw2 11:30 BP 139 / 58; Pulse 79; Resp 17; Pulse Ox 96% on R/A; tw2 12:30 BP 121 / 77; Pulse 82; Resp 19; Pulse Ox 95% on R/A; tw2 08:58 Body Mass Index 30.18 (74.84 kg, 157.48 cm) tw2 NIH Stroke Scale Scores: 09:02 NIHSS Score: 4 [facility] ED Course: 08:49 Patient arrived in ED. tw2 08:49 Colin Newell PA is PHCP. [facility] 08:49 Jone Wise MD is Attending Physician. [facility] 08:49 Placed in gown. Bed in low position. Call light in reach. engraved roller inspector on. Pulse ox tw2 on. NIBP on. 08:51 Usha Keller, DINORAH is Primary Nurse. tw2 08:53 Triage completed. tw2 08:53 Arm band placed on. tw2 09:01 Inserted saline lock: 22 gauge in right antecubital area, using aseptic technique. tp1 ,using aseptic technique. Pulsation noted, IV discontinued, gauze and coband applied. Blood collected. 09:[address] via stretcher. jh6 09:22 X-ray(s) taken. jh6 09:23 Inserted saline lock: 22 gauge in left forearm, using aseptic technique. jh6 09:27 CT Stroke Brain w/o Contrast In Process Unspecified. EDMS 09:38 Stroke CXR 1 View In Process Unspecified. EDMS 10:01 Inserted saline lock: 22 gauge in right wrist, using aseptic technique. jh6 10:[address] Scan. Patient moved to CT via stretcher. jh6 10:11 CT Neck Angio In Process Unspecified. EDMS 10:12 CT Head Angio In Process Unspecified. EDMS 10:57 Issa Wise MD is Hospitalizing Provider. [facility] 13:16 Awaiting: unsuccessful attempt to give report at this time. tw2 13:46 No provider procedures requiring assistance completed. Patient admitted, IV remains in tw2 place. Administered Medications: 10:26 Drug: Aspirin Chewable Tablet 324 mg Route: PO; tw2 10:53 Follow up: Response: No adverse reaction tw2 10:36 Drug: NS 0.9% 500 ml Route: IV; Rate: bolus; Site: left antecubital; tw2 11:30 Follow up: Response: No adverse reaction; IV Status: Completed infusion; IV Intake: tw2 500ml 11:27 Drug: foLIC Acid 1 mg Route: IVPB; Site: left forearm; tw2 11:30 Follow up: Response: No adverse reaction; IV Status: Completed infusion; IV Intake: tw2 0.02ml Intake: 11:30 IV: 500ml; Total: 500ml. tw2 11:30 IV: 0ml; Total: 500ml. tw2 Outcome: 10:58 Decision to Hospitalize by Provider. syed 13:43 Condition: stable tw2 13:46 Admitted to Med/surg Report called to DINORAH Del Toro. pt in MRI at this time. Anthony Saavedra tw2 will transport pt to Room #205 after MRI. pts son taking belongings to pts floor room at this time. 13:46 Instructed on the need for admit. 13:51 Patient left the ED. tw2 NIH Stroke Scale - NIH Stroke Score Date: 10/20/2021 Time: 09:02 Total Score = 4 1a. Level of Consciousness (LOC) - 0(Alert) 1b. Level of Consciousness (LOC) (Month \T\ Age) - 0(Both) 1c. LOC Commands (Open \T\ Closes Eyes/Consulting Technical Director) - 0(Both) 2. Best Gaze (Lateral Gaze Paresis) - 0(Normal) 3. Visual Field Loss - 0(No visual loss) 4. Facial Palsy - 2(Partial paralysis) 5a. Left Arm: Motor (10-second hold) - 1(Drift) 5b. Right Arm: Motor (10-second hold) - 0(No drift) 6a. Left Leg: Motor (5-second hold - always test supine) - 1(Drift) 6b. Right Leg: Motor (5-second hold - always test supine) - 0(No drift) 7. Limb Ataxia (finger/nose \T\ heel/dill - test with eyes open) - 0(Absent) 8. Sensory Loss (pinprick arms/legs/face) - 0(Normal) 9. Best Language: Aphasia (description/naming/reading) - 0(No aphasia) 10. Dysarthria (speech clarity - read or repeat words) - 0(Normal) 11. Extinction and Inattention (visual/tactile/auditory/spatial/personal) - 0(No abnormality) Initials: syed Signatures: Dispatcher [employer] Colin Marques PA PA jmm Wise, Tara RN RN tw2 Melly Alexandra RN RN jh6 Celeste Valderrama tp1
[2021-10-20] MEDS ORDERED: FOLIC ACID 5 MG/ML VIAL ONE (11:05)
--- NOTE | 2021-10-20 11:46 | P.HP ---
Certification for Inpatient Patient admitted to: Inpatient With expected LOS: >2 Midnights Practitioner: I am a practitioner with admitting privileges, knowledge of patient current condition, hospital course, and medical plan of care. Services: Services provided to patient in accordance with Admission requirements found in Title 42 Section 412.3 of the Code of Federal Regulations Patient History Date of Service: 10/20/21 Reason for admission: suspected CVA History of Present Illness: 85-year-old female, PMH: Dementia, hypertension, prior TIA, NIDDM 2, depression/anxiety, recurrent UTIs on chronic low-dose antibiotic Presents to ED due to new onset left-sided facial droop, associated with left arm and left leg weakness. Patient accompanied by her son, who states patient fell yesterday evening and had some confusion. She was brought to the ED and had multiple imaging studies done with negative findings for any fractures. At that time she was noted to have a leukocytosis and significant hypertension. This was felt to be reactive due to her fall. She was discharged home. This morning was when the son first noticed the facial droop. It is unclear if patient had a stroke yesterday causing the fall. Son states patient was otherwise in her usual state of health up until that event. She was not complaining reporting any dysuria, no change in urinary habits, no complaints of any pain/nausea/vomiting/diarrhea. She has a history of recurrent UTIs, but several months ago was started on a low-dose daily antibiotic, son states that this has helped tremendously. UA in the ED was clear. CT noted questionable area of possible CVA. ER provider requested admission for further evaluation and treatment. Allergies No Known Allergies Allergy (Unverified 03/26/20 21:18) Home Medications: Clopidogrel Bisulfate [Plavix*] 1 tab PO DAILY 03/26/20 Levothyroxine Sodium 1 tab PO DAILY 03/26/20 Metformin ER [Glucophage ER*] 1 tab PO BID 03/26/20 NIFEdipine [Nifedipine ER] 1 tab PO BID 03/26/20 Sertraline [Zoloft*] 1 tab PO BID 03/26/20 Trimethoprim 100 mg PO DAILY 10/20/21 - Past Medical/Surgical History Diabetic: Yes -: Hypertension -: Diabetes mellitus, Noninsulin-dependent -: advanced dementia -: Hyperlipidemia -: Recurrent UTIs -: hysterectomy -: Bilateral knee surgery - Family History Mother -: Heart disease Brother -: Heart disease Sister -: Heart disease - Social History Smoking Status: Never smoker Alcohol use: No CD- Drugs: No Caffeine use: Yes Place of Residence: Home (With son) Review of Systems 10-point ROS is otherwise unremarkable Physical Examination - Physical Exam General: Alert, In no apparent distress, Oriented x1, Demented HEENT: Mucous membr. moist/pink, Sclerae nonicteric Respiratory: Clear to auscultation bilaterally, Normal air movement Cardiovascular: No edema, Regular rate/rhythm Gastrointestinal: Soft and benign, Non-distended, No tenderness Musculoskeletal: No erythema, No tenderness Integumentary: No significant lesion Neurological: Normal speech, Other (L sided facial droop and decreased sensation, L arm/leg with mild weakness compared to right, ) - Studies Laboratory Data (last 24 hrs) 10/20/21 09:00: PT 12.0, INR 1.04, APTT 25.5 10/20/21 09:00: WBC 15.50 H D, Hgb 12.7, Hct 38.2, Plt Count 287 10/20/21 09:00: Sodium 137, Potassium 4.2, BUN 43 H D, Creatinine 1.02, Glucose 212 H Assessment and Plan - Advance Directives Does patient have a Living Will: No Does patient have a Durable POA for Healthcare: Yes Physician Review Additional Text: Problem List L facial droop with decreased sensation, L arm and leg weakness, secondary to possible CVA HTN NIDDM2 h/o TIA Hypothyroid -CT with questionable area of infarct, possibly acute -CTA negative -MRI ordered -Carotid U/S, PT, ST -neurology consulted -continue home plavix, start aspirin -start atorvastatin -may need SNF vs rehab -leukocytosis likely reactive from fall, ROS negative -has h/o recurrent UTIs however asymptomatic, and better controlled on daily low dose antibiotic over last several months -do not suspect infection at this time Code: full Dispo: anticipate dc in ~2-3 days, possible SNF vs rehab Time Spent Managing Pts Care (In Minutes): 60
--- NOTE | 2021-10-20 14:46 | RAD REPORT ---
EXAM DESCRIPTION: MRI - Brain W/Wo Cont - 10/20/2021 2:02 pm CLINICAL HISTORY: WEAKNESS Headache, drowsiness, CVA symptomology COMPARISON: MRA Head Wo Cont dated 10/20/2021; Head angio dated 10/20/2021; Neck Angio dated 021; MRA Neck W/Wo Cont dated 10/20/2021 TECHNIQUE: Multi-sequence, multiplanar MR imaging of the brain was performed with contrast. FINDINGS: No intracranial hemorrhage, hydrocephalus, or extra-axial fluid collection.Moderate conflu ent T2/FLAIR hyperintensity in the periventricular and deep white matter is present compatible with c hronic microvascular ischemic changes. No edema or shift of midline structures. No intracranial mass. 11 x 6 mm area of acute infarction is seen left lateral medulla compatible PICA infarct. The midline structures are normally formed. Mastoid air cells and paranasal sinuses are clear. Post-contrast images show no abnormal enhancement to suggest tumor or infection. 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
--- NOTE | 2021-10-20 14:48 | RAD REPORT ---
EXAM DESCRIPTION: MRI - MRA Head Wo Cont - 10/20/2021 2:14 pm CLINICAL HISTORY: WEAKNESS CVA COMPARISON: Head angio dated 10/20/2021 FINDINGS: 3D noncontrast [id number] MR angiography of the [place] was performed. No aneurysm, flow-limiting stenosis or vascular malformation is seen. Forward flow seen in codominant vertebral arteries. The visualized dural venous sinuses appear patent. IMPRESSION: No significant flow abnormality of the [place] is identified.
--- NOTE | 2021-10-20 14:53 | RAD REPORT ---
EXAM DESCRIPTION: MRI - MRA Neck W/Wo Cont - 10/20/2021 2:14 pm CLINICAL HISTORY: WEAKNESS Headache, drowsiness, CVA symptomology COMPARISON: Neck Angio dated 10/20/2021; Head C Spine Mpr Wo Con dated 03/26/2020 FINDINGS: Contrast enhance 2D [id number] MR angiography of the neck vessels was performed. A left aortic arch is present. Both common carotid arteries and subclavian arteries are patent. Both internal carotid arteries are patent. No significant carotid stenosis seen. Antegrade flow is se en in both vertebral artery is the left vertebral artery is mildly dominant. 22 x 16 mm T2 hyperintense lesion along the base of the neck on the left is noted. This is nonspecifi c. IMPRESSION: No significant flow abnormality of the neck vessels is seen. Nonspecific T2 hyperintense lesion along the base of the neck on the left measuring 22 x [address] soft tissue of the neck with contrast could be obtained for further characterization.
[2021-10-20] MEDS: INSULIN -REGULAR HUMAN 50 UNIT/0.5 ML ML SQ SCH ×2 (15:08→17:25)
[2021-10-20] MEDS ORDERED: ONDANSETRON 4 MG/2 ML VIAL IV PRN (15:08)
[2021-10-20] MEDS: NA CHLORIDE 0.9% 1,000 ML IV SCH (15:53)
[2021-10-20] MEDS ORDERED: PNEUMOCOCCAL VACCINE 0.5 ML IMVAC ONE (17:00)
[2021-10-20] MEDS ORDERED: INFLUENZA VACCINE (for 6+ mo) 0.5 ML DOSE IMVAC ONE (17:00)
--- NOTE | 2021-10-20 17:11 | RAD REPORT ---
EXAM DESCRIPTION: US - CP - 10/20/2021 5:00 pm CLINICAL HISTORY: CVA workup Headache, drowsiness COMPARISON: MRA Neck W/Wo Cont dated 10/20/2021 TECHNIQUE: Real-time sonographic evaluation of both carotid systems was performed. Doppler interroga tion was performed with waveform tracing bilaterally. FINDINGS: Normal high resistance waveforms are noted in both external carotid arteries. The common c arotid arteries and internal carotid arteries show normal low resistance waveforms. Small volume of plaquing is seen in both carotid bulbs. Peak systolic and end diastolic velocity valu es and the ICA/CCA ratios are in the non-hemodynamically significant range. Antegrade flow seen in both vertebral arteries. IMPRESSION: Mild carotid bulb plaquing bilaterally. No evidence of a hemodynamically significant stenosis.
[2021-10-20] MEDS: SERTRALINE HCL 100 MG TAB PO SCH (20:42)
[2021-10-20] MEDS: ATORVASTATIN 40 MG TAB PO SCH (20:42)
[2021-10-21] MEDS: NA CHLORIDE 0.9% 1,000 ML IV SCH (03:51)
[2021-10-21] MEDS: INSULIN -REGULAR HUMAN 50 UNIT/0.5 ML ML SQ SCH ×4 (05:55→16:34)
[2021-10-21] MEDS: LEVOTHYROXINE SOD 0.05 MG TABLET PO SCH (05:58)
--- NOTE | 2021-10-21 06:14 | P.PN ---
Date of Service: 10/21/21 Subjective: No acute events overnight. Patient more alert/oriented this morning Has discomfort in her left hip/leg, no new complaints Denies dysuria/urinary change More hypertensive today ROS: 10 point ROS as noted above, otherwise negative Physical Exam General: aaoX3, nad HEENT: Mucous membr. moist/pink, Sclerae nonicteric Respiratory: Clear to auscultation bilaterally, Normal air movement Cardiovascular: No edema, Regular rate/rhythm Gastrointestinal: Soft and benign, Non-distended, No tenderness Musculoskeletal: No erythema, tenderness in left hip with passive/active range of motion Integumentary: No significant lesion Neurological: Normal speech, Other (L sided facial droop and decreased sensation, L arm/leg with minimal weakness compared to right, but difficult to fully assess left leg secondary to pain) Problem List L facial droop with decreased sensation, L arm and leg weakness, secondary to CVA Left hip/leg pain s/p fall HTN NIDDM2 h/o TIA Hypothyroid -MRI confirmed acute infarct -MRA negative, carotid ultrasound negative -Speech therapy evaluated patient, advanced to thickened liquids -Physical therapy working with patient, recommended SNF versus rehab -neurology consulted -continue home plavix -Continue aspirin, atorvastatin -started on admission -leukocytosis likely reactive from fall, ROS negative, UA only positive for nitrates, and denies symptoms, takes daily antibiotic -Repeat UA, catheter specimen -has h/o recurrent UTIs however asymptomatic, and better controlled on daily low dose antibiotic over last several months Code: full Dispo: anticipate dc in ~2 days, possible SNF vs rehab Currently patient states she does not want to go to SNF, open to rehab if needed Time Spent Managing Pts Care (In Minutes): 35
[2021-10-21 06:17] LABS: Absolute Lymphocytes (CBC) 1.3 K/uL (0.7-4.9); Basophils % 0.7 % (0-1.3); Hematocrit 37.1 % (36.0-45.0); Lymphocytes % 8.5 % (15.3-44.8); RBC Red Blood Cell Count 4.74 M/uL (3.86-4.86)
[2021-10-21 06:40] LABS: Bilirubin Total 0.6 mg/dL (0.2-1.0); C-Reactive Protein 58.5 mg/L (<3.00); Magnesium 2.2 mg/dL (1.8-2.4); Phosphorus 2.2 mg/dL (2.5-4.9); Potassium 3.5 mmol/L (3.5-5.1); Protein, Total 6.5 g/dL (6.4-8.2); Thyroid Stimulating Hormone 3.09 uIU/mL (0.360-3.740)
[2021-10-21] MEDS ORDERED: KCL 20 MEQ/100 mL IVPB 20 MEQ/100 ML BAG IV SCH (08:00)
[2021-10-21] MEDS ORDERED: POTASSIUM PHOS IN 0.9 % NACL 15 MMOL/250 ML BAG IV ONE (09:00)
[2021-10-21] MEDS: CLOPIDOGREL 75 MG TABLET PO SCH (09:39)
[2021-10-21] MEDS: ASPIRIN EC 81 MG TAB PO SCH (09:39)
[2021-10-21] MEDS: HYDRALAZINE HCL 20 MG/ML VIAL IV PRN (12:45)
[2021-10-21] MEDS ORDERED: NIFEDIPINE XL 30 MG TABLET PO SCH (13:00)
[2021-10-21] MEDS ORDERED: POLYETHYL GLY 3350 17 GM/DOSE PO PRN (13:34)
[2021-10-21] MEDS: AMLODIPINE 2.5 MG TAB FT SCH (16:49)
[2021-10-21 18:33] LABS: Urine Appearance Clear (Clear); Urine Bilirubin Negative (Negative); Urine Blood Negative (Negative); Urine Color Yellow (Yellow); Urine Glucose Negative (Negative); Urine Protein Negative (Negative); Urine Specific Gravity 1.015 (1.005-1.030); Urine Urobilinogen 0.2 mg/dL (0.2-1.0); Urine pH 5.5 (5.0-7.0)
[2021-10-21 18:40] LABS: Urine Microscopic Reflex NO UMIC
[2021-10-21] MEDS ORDERED: ACETAMINOPHEN 500 MG TAB PO PRN (20:36)
[2021-10-21] MEDS ORDERED: MELATONIN 5 MG TABLET PO ONE (21:00)
[2021-10-21] MEDS: ATORVASTATIN 40 MG TAB PO SCH (21:00)
[2021-10-21] MEDS: SERTRALINE HCL 100 MG TAB PO SCH (21:13)
[2021-10-22] MEDS: LEVOTHYROXINE SOD 0.05 MG TABLET PO SCH (05:54)
[2021-10-22] MEDS: INSULIN -REGULAR HUMAN 50 UNIT/0.5 ML ML SQ SCH ×4 (05:55→18:00)
[2021-10-22] MEDS: HYDRALAZINE HCL 20 MG/ML VIAL IV PRN ×2 (06:10→20:54)
--- NOTE | 2021-10-22 06:15 | P.PN ---
Date of Service: 10/22/21 Subjective: patient reported some brief left lower chest / upper abdominal pain this morning leg pain feels better continues with weakness, also reports some slight worsening of vision ROS: 10 point ROS as noted above, otherwise negative Physical Exam General: aaoX3, nad HEENT: Mucous membr. moist/pink, Sclerae nonicteric Respiratory: Clear to auscultation bilaterally, Normal air movement Cardiovascular: Regular rate/rhythm, no edema Gastrointestinal: Soft and benign, Non-distended, No tenderness Integumentary: erythema under left breast with satellite lesions, minimal erythema under R breast Neurological: Normal speech, Other (L sided facial droop and decreased sensation, L arm/leg with weakness compared to right and decreased coordination) Problem List L facial droop with decreased sensation, L arm and leg weakness, secondary to CVA Left hip/leg pain s/p fall HTN NIDDM2 h/o TIA Hypothyroid -MRI confirmed acute infarct -MRA negative, carotid ultrasound negative -Speech therapy evaluated patient, recommending MBS, NPO until completed -Physical therapy working with patient, recommended SNF versus rehab, patient requiring max assist -neurology consulted -continue home plavix -Continue aspirin, atorvastatin -started on admission -leukocytosis likely reactive from fall, ROS negative, UA only positive for nitrites, and denies symptoms, takes daily antibiotic -Repeat UA, catheter specimen - negative, leukocytosis resolved -has h/o recurrent UTIs however asymptomatic, and better controlled on daily low dose antibiotic over last several months Code: full Dispo: needs inpatient rehab vs snf, would likely benefit more from inpatient rehab type setting Family in agreement library services assistant consulted Time Spent Managing Pts Care (In Minutes): 35
[2021-10-22 06:26] LABS: Absolute Lymphocytes (CBC) 1.1 K/uL (0.7-4.9); Basophils % 1.3 % (0-1.3); Hematocrit 36.4 % (36.0-45.0); Lymphocytes % 14.2 % (15.3-44.8); MPV 7.9 fL (7.6-11.3)
[2021-10-22 06:45] LABS: C-Reactive Protein 71.5 mg/L (<3.00); Phosphorus 3.6 mg/dL (2.5-4.9); Potassium 3.6 mmol/L (3.5-5.1)
[2021-10-22] MEDS ORDERED: POTASSIUM CL SA 10 MEQ TAB PO ONE (09:00)
[2021-10-22] MEDS: AMLODIPINE 2.5 MG TAB FT SCH (09:00)
[2021-10-22] MEDS: ASPIRIN EC 81 MG TAB PO SCH (09:18)
[2021-10-22] MEDS: CLOPIDOGREL 75 MG TABLET PO SCH (09:18)
--- NOTE | 2021-10-22 14:45 | RAD REPORT ---
EXAM DESCRIPTION: RAD - Barium Swallow Modified - 10/22/2021 2:39 pm CLINICAL HISTORY: Cough, difficulty swallowing FINDINGS: LARYNGEAL PENETRATION: CLEARED- RESIDUE DURING HONEY BY CUP, NOT CLEARED- RESIDUE DURING T HIN BY CUP (SEQUENTIAL), THIN BY STRAW PHARYNGEAL RESIDUE: VALLECULAR, PYRIFORM- (ALL CONSISTENCIES) THIN BY SPOON, THIN BY CUP (SEQUENTIAL) , THIN BY STRAW, NECTAR BY CUP, HONEY BY CUP, PUREE, DRY SOLID, WHOLE TABLET W/ NECTAR BY CUP OTHER: REDUCED EPIGLOTTIC DEFLECTION, OSTEOPHYTES AT C5-C6 Fluoroscopy time 3 minutes. Nineteen fluoroscopic spot series obtained
[2021-10-22] MEDS: ATORVASTATIN 40 MG TAB PO SCH (20:18)
[2021-10-22] MEDS: SERTRALINE HCL 100 MG TAB PO SCH (20:18)
[2021-10-22] MEDS: NYSTATIN PWDR 100000 UNIT/GM TOP SCH (20:19)
--- NOTE | 2021-10-22 20:24 | CON ---
Reason For Consultation: Stroke. History Of Present Illness: Ms. Bonilla is an 85-year-old right-handed patient with hist ory of hypertension, prior strokes, [id number] diabetes mellitus, dementia, recurrent urin alon tract infections, who comes with some left-sided facial, arm, and leg weakness with some numbness . Her episode occurred on the 19 of October and was more the day prior to coming into [facility]. Her initial scan involved a brain CT, which showed no intracranial hemorrhage or acute iss ues, although there were questionable new low-density areas in the left curt, potentially acute nonhe morrhagic stroke and there was advanced chronic small-vessel ischemic disease. The patient's brain M RI done on 10/20 identified an 11 x 6 mm acute infarct in the left lateral medulla compatible with a posterior inferior cerebral artery infarct and did explain a lot of the patient's symptoms. She had some difficulty with labial, lingual, and guttural sounds and appear actually to have some chronic di fficulty with her hearing as well. Her head CT angiogram showed no significant occlusion or stenosis of the intracranial vessels. Neck CT angiogram showed no dissection, stenosis, or significant vascu lar findings. The brain MRA showed no significant abnormalities of her [place]. Furthermor e, the brain MRI showed moderate confluent T2 and FLAIR hyperintensities in the periventricular and d eep white matter area consistent with chronic small-vessel ischemic disease. The patient's etiology is likely to be uncontrolled hypertension. She did have elevated blood pressures up to the 170s and 180s systolic and most recent blood pressure 177/70 with a pulse of 70. Her additional stroke risk f actors did show elevated glucose 212, BUN elevated to 43 consistent with mild dehydration. C-reactiv e protein elevated to 58. Procalcitonin elevated at 0.1. However, LDL was down to 63, HDL 53. Urin alysis showed trace esterase. COVID-19 test is negative. Past Medical History: Diabetes mellitus, hypertension, recurrent urinary tract infections, dementia. Allergies: NO KNOWN DRUG ALLERGIES. Medications: At home, Plavix 75 mg daily, levothyroxine daily, Glucophage daily, nifedipine daily, Z oloft daily. Family History: Heart disease in mother, brother and sister. Past Surgical History: Hysterectomy, bilateral knee surgery. Allergies: NO KNOWN DRUG ALLERGIES. Review of Systems: No recent chills, fevers, myalgias, arthralgias, rash, headache, weight change. No psychiatric issue s. She has difficulty hearing and difficulty following complex commands. Physical Examination: Vital Signs: Blood pressure 177/70, pulse 70, respiratory rate 18, temperature 98, oxygen saturation 94%. Weight 165 pounds, height 5 feet 2 inches, BMI 30. General: Ms. Bonilla is resting in bed. She is somewhat hard of hearing, but once loud enough, sh e can understand and follow simple instructions. HEENT: She is normocephalic, atraumatic. Sclerae anicteric. Oropharynx is moist and pink. Neck: Supple. Chest: Clear. Heart: Regular. Extremities: Show no significant edema or cyanosis. Neurological: She does have, on face examination, a slight decrease of the left nasolabial fold, but good excursions. Subtle decrease to light touch in the left face. Otherwise, her motor examination in the upper and lower extremities shows slight decreased strength in the left arm and leg compared to right side 5/5. Sensation is slightly decreased to light touch and temperature in arm and leg on the left compared to the right. Coordination, she has slight difficulty with dysmetria noted in left upper and lower extremity. Her reflexes are depressed and symmetric. Her gait, she will be ambulat ed with physical therapy. In terms of speech, she did have a modified barium swallow that showed mod erate, reduced, epiglottic deflection with moderate residue in the valleculae with all consistencies. The repeated swallow is reduced, but eventually removal of pharyngeal residue. It was recommended that she have chopped meats, honey thick liquids, and soft mechanical diet. Assessment: Ms. 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 She has hypertension, diabetes mellitus, dyslipidemia, prior strokes, and dementia. Plan: 1.Aspirin along with Plavix, Lipitor, folic acid; management of her hypertension in addition to her hypothyroidism. 2.Physical, occupational, and speech therapy aggressively at this point may be helpful. 3.Improve hydration to help reduce dehydration and risk of stroke. 4.She may be evaluated for admission to the inpatient rehabilitation unit versus her outpatient ther apy. GRULLON/ALFONSO Voice ID: [id number] Report ID: [id number]
[2021-10-23] MEDS: LEVOTHYROXINE SOD 0.05 MG TABLET PO SCH (05:41)
[2021-10-23] MEDS: INSULIN -REGULAR HUMAN 50 UNIT/0.5 ML ML SQ SCH ×4 (05:41→17:50)
[2021-10-23] MEDS: HYDRALAZINE HCL 20 MG/ML VIAL IV PRN ×2 (05:41→16:44)
[2021-10-23 06:34] LABS: Absolute Lymphocytes (CBC) 1.2 K/uL (0.7-4.9); Basophils % 0.8 % (0-1.3); Hematocrit 37.7 % (36.0-45.0); Lymphocytes % 15.7 % (15.3-44.8); MPV 7.5 fL (7.6-11.3); RBC Red Blood Cell Count 4.77 M/uL (3.86-4.86)
[2021-10-23] MEDS: NYSTATIN PWDR 100000 UNIT/GM TOP SCH (09:00)
[2021-10-23 09:07] VITALS: O2SAT 93
[2021-10-23] MEDS: AMLODIPINE 2.5 MG TAB FT SCH (09:46)
[2021-10-23] MEDS: ASPIRIN EC 81 MG TAB PO SCH (09:46)
[2021-10-23] MEDS: CLOPIDOGREL 75 MG TABLET PO SCH (09:47)
--- NOTE | 2021-10-23 10:50 | P.DS ---
Admission Date: 10/20/21 Discharge Date: 10/23/21 Disposition: TRANSFER TO INPATIENT REHAB Discharge Condition: GOOD Reason for Admission: suspected CVA Consultations: Neurology = Dr. Jaeger Procedures: CXR (10/20): IMPRESSION: Limited shallow inspiration exam without acute cardiopulmonary finding. No significant changes from the prior day imaging. CT brain (10/20): FINDINGS: No intracranial hemorrhage, mass, or cerebral edema. No acute cortical based infarction identified. No cortical edema or sulcal effacement seen. Atrophy is mild to moderate for age with ventricles in proportion to the volume loss. Atrophy and ventriculomegaly are stable. Patient has very pronounced chronic ischemic change throughout the cerebral white matter and to a lesser degree the basal ganglia and thalamus tissues. A 10 x 6 mm area of decreased attenuation is present in the curt just left of midline. This is questionably new from 2020. No extra-axial fluid collections. [place] matter-white matter differentiation is preserved.Dense arterial tree calcifications are present. No globe or orbital content acute finding. Visualized portions of the mastoid air cells, paranasal sinuses, and orbits are unremarkable. Findings telephoned to Colin Smith at 9:37 a.m. IMPRESSION: No intracranial hemorrhage and no acute cortical based infarction. Questionable new low-density area is left-side ucrt is potentially acute nonhemorrhagic CVA. Patient has advanced chronic ischemic change in the cerebral white matter which can also mask nonhemorrhagic CVA. CTA head (10/20): FINDINGS: No aneurysm or vascular malformation identified. Major venous sinuses are patent. Internal carotid and vertebral artery atherosclerotic calcifications are present. No stenosis, named branch occlusion, vasculitis or other significant vascular finding identifiable. IMPRESSION: Negative CT angio head examination for occlusion, significant stenosis or other significant vascular finding. . CTA neck (10/20): FINDINGS: No aneurysm or vascular malformation identified. No carotid or vertebral dissection. No aortic arch or great vessel origin abnormality seen. Vertebral artery origins are tortuous pole without dissection or stenosis. Carotid vasculature also seen as tortuous without dissection, stenosis or acute finding. Partially imaged subclavian arteries are also unremarkable. No basilar artery abnormality identified. Thyroid gland is mildly prominent. No large thyroid mass lesion identifiable. Superior portion of thoracic esophagus appears circumferentially thickened. This area is not adequately assessed on CT angio neck examination. IMPRESSION: CT angio neck examination shows no dissection, stenosis or significant vascular finding. Questionable thickening of the upper thoracic esophagus not adequately assessed on this study. MRI brain (10/20): FINDINGS: No intracranial hemorrhage, hydrocephalus, or extra-axial fluid collection.Moderate confluent T2/FLAIR hyperintensity in the periventricular and deep white matter is present compatible with chronic microvascular ischemic changes. No edema or shift of midline structures. No intracranial mass. 11 x 6 mm area of acute infarction is seen left lateral medulla compatible PICA infarct. The midline structures are normally formed. Mastoid air cells and paranasal sinuses are clear. Post-contrast images show no abnormal enhancement to suggest tumor or infection. 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 MRA brain (10/20): FINDINGS: 3D noncontrast [id number] MR angiography of the [place] was performed. No aneurysm, flow-limiting stenosis or vascular malformation is seen. Forward flow seen in codominant vertebral arteries. The visualized dural venous sinuses appear patent. IMPRESSION: No significant flow abnormality of the [place] is identified. MRA neck (10/20): FINDINGS: Contrast enhance 2D [id number] MR angiography of the neck vessels was performed. A left aortic arch is present. Both common carotid arteries and subclavian arteries are patent. Both internal carotid arteries are patent. No significant carotid stenosis seen. Antegrade flow is seen in both vertebral artery is the left vertebral artery is mildly dominant. 22 x 16 mm T2 hyperintense lesion along the base of the neck on the left is noted. This is nonspecific. IMPRESSION: No significant flow abnormality of the neck vessels is seen. Nonspecific T2 hyperintense lesion along the base of the neck on the left measuring 22 x [address] soft tissue of the neck with contrast could be obtained for further characterization. Carotid artery ultrasound was 10/20): FINDINGS: Normal high resistance waveforms are noted in both external carotid arteries. The common carotid arteries and internal carotid arteries show normal low resistance waveforms. Small volume of plaquing is seen in both carotid bulbs. Peak systolic and end diastolic velocity values and the ICA/CCA ratios are in the non-hemodynamically significant range. Antegrade flow seen in both vertebral arteries. IMPRESSION: Mild carotid bulb plaquing bilaterally. No evidence of a hemodynamically significant stenosis. Modified barium swallow (10/22): FINDINGS: LARYNGEAL PENETRATION: CLEARED- RESIDUE DURING HONEY BY CUP, NOT CLEARED- RESIDUE DURING THIN BY CUP (SEQUENTIAL), THIN BY STRAW PHARYNGEAL RESIDUE: VALLECULAR, PYRIFORM- (ALL CONSISTENCIES) THIN BY SPOON, THIN BY CUP (SEQUENTIAL), THIN BY STRAW, NECTAR BY CUP, HONEY BY CUP, PUREE, DRY SOLID, WHOLE TABLET W/ NECTAR BY CUP OTHER: REDUCED EPIGLOTTIC DEFLECTION, OSTEOPHYTES AT C5-C6 Problem List L facial droop with decreased sensation, L arm and leg weakness, secondary to CVA (acute infarction of left lateral medulla compatible with PICA infarct) Left hip/leg pain s/p fall HTN NIDDM2 h/o TIA Hypothyroid Brief History of Present Illness: 85-year-old female, PMH: Dementia, hypertension, prior TIA, NIDDM 2, depression/anxiety, recurrent UTIs on chronic low-dose antibiotic Presents to ED due to new onset left-sided facial droop, associated with left arm and left leg weakness. Patient accompanied by her son, who states patient fell yesterday evening and had some confusion. She was brought to the ED and had multiple imaging studies done with negative findings for any fractures. At that time she was noted to have a leukocytosis and significant hypertension. This was felt to be reactive due to her fall. She was discharged home. This morning was when the son first noticed the facial droop. It is unclear if patient had a stroke yesterday causing the fall. Son states patient was otherwise in her usual state of health up until that event. She was not complaining reporting any dysuria, no change in urinary habits, no complaints of any pain/nausea/vomiting/diarrhea. She has a history of recurrent UTIs, but several months ago was started on a low-dose daily antibiotic, son states that this has helped tremendously. UA in the ED was clear. CT noted questionable area of possible CVA. ER provider requested admission for further evaluation and treatment. Hospital Course: MRI revealed an acute infarction in the medulla, consistent with a PICA infarct. Patient was treated with aspirin, Plavix, atorvastatin, folic acid. Patient was treated for her stroke with antiplatelet therapy, statin therapy, folic acid, permissive hypertension. Physical therapy was consulted and patient was noted to require moderatemax assist due to her instability and weakness. Neurology was consulted. After discussion with patient's and family, they ultimately chose to continue physical therapy/treatment at [facility]. Patient was accepted and subsequently transferred to [facility] for continued care. Patient was also noted to have some difficulty swallowing her food. Her son reported this has been an ongoing issue, even prior to this most recent stroke. Speech therapy evaluated the patient, underwent modified barium swallow. She was able to be advanced to chopped diet During hospitalization, patient did report some discomfort in the inferior portion of her left chest wall. On exam, patient had some intertrigo under her left breast. She was treated with antifungal powder, and recommend continuing this on transfer. She has a history of recurrent UTIs, but this is been much better controlled on a daily antibiotic. Her initial UA was only positive for nitrites. She also was noted to have a leukocytosis, but this was felt to likely be reactive from her fall. Repeat UA (catheter specimen) will was not suggestive for UTI. Patient's leukocytosis resolved without antibiotics. She is to follow-up with neurology in 1 month after discharge from rehab Follow-up PCP within 1 week after discharge from rehab. Vital Signs/Physical Exam: Physical Exam General: aaoX3, NAD HEENT: Mucous membr. moist/pink, Sclerae nonicteric Respiratory: Clear to auscultation bilaterally, Normal air movement Cardiovascular: Regular rate/rhythm, no edema Gastrointestinal: Soft and benign, Non-distended, No tenderness Integumentary: erythema under left breast with satellite lesions, minimal erythema under R breast Neurological: Slight decrease of left nasolabial fold. Subtle decrease to light touch in left face. Slight decreased strength in left arm and leg compared to right side (5/5) Slight decreased sensation to light touch and temperature in left arm and leg. Slight difficulty with dysmetria in the left extremities, more noticeable in left lower leg. Temp Pulse Resp BP Pulse Ox 98.7 F 74 17 148/66 H 93 10/23/21 08:00 10/23/21 08:00 10/23/21 08:00 10/23/21 08:00 10/23/21 08:00 Laboratory Data at Discharge: WBC 7.60 K/uL (4.3-10.9) 10/23/21 06:11 Hgb 12.6 g/dL (12.0-15.0) 10/23/21 06:11 Hct 37.7 % (36.0-45.0) 10/23/21 06:11 Plt Count 321 K/uL (152-406) D 10/23/21 06:11 PT 12.0 SECONDS (9.5-12.5) 10/20/21 09:00 INR 1.04 10/20/21 09:00 APTT 25.5 SECONDS (24.3-36.9) 10/20/21 09:00 Sodium 141 mmol/L (136-145) 10/22/21 05:50 Potassium 3.6 mmol/L (3.5-5.1) 10/22/21 05:50 BUN 17 mg/dL (7-18) 10/22/21 05:50 Creatinine 0.73 mg/dL (0.55-1.3) 10/22/21 05:50 Glucose 138 mg/dL (74-106) H 10/22/21 05:50 Phosphorus 3.6 mg/dL (2.5-4.9) D 10/22/21 05:50 Magnesium 2.2 mg/dL (1.8-2.4) 10/21/21 05:33 Total Bilirubin 0.6 mg/dL (0.2-1.0) 10/21/21 05:33 AST 16 U/L (15-37) 10/21/21 05:33 ALT 25 U/L (12-78) 10/21/21 05:33 Alkaline Phosphatase 63 U/L (45-117) 10/21/21 05:33 Troponin I Cancelled 10/22/21 21:42 Triglycerides 134 mg/dL (<150) 10/21/21 05:33 Cholesterol 143 mg/dL (<200) 10/21/21 05:33 HDL Cholesterol 53 mg/dL (40-60) 10/21/21 05:33 Cholesterol/HDL Ratio 2.70 10/21/21 05:33 Home Medications: Clopidogrel Bisulfate [Plavix*] 1 tab PO DAILY 03/26/20 Levothyroxine Sodium 1 tab PO DAILY 03/26/20 Metformin ER [Glucophage ER*] 1 tab PO BID 03/26/20 NIFEdipine [Nifedipine ER] 1 tab PO BID 03/26/20 Sertraline [Zoloft*] 1 tab PO BID 03/26/20 Trimethoprim 100 mg PO DAILY 10/20/21 Amlodipine [Norvasc*] 2.5 mg FT DAILY tab 10/23/21 Aspirin [Aspirin EC 81 MG] 81 mg PO DAILY 30 Days #30 tablet. 10/23/21 Atorvastatin Calcium [Lipitor] 40 mg PO BEDTIME tab 10/23/21 Clopidogrel Bisulfate [Plavix*] 75 mg PO DAILY tablet 10/23/21 Folic Acid 1 mg PO DAILY 30 Days #30 tablet 10/23/21 Nystatin Powder [Mycostatin (Powder)*] 1 appl TOP BID btl 10/23/21 New Medications: Aspirin [Aspirin EC 81 MG] 81 mg PO DAILY 30 Days #30 tablet. Folic Acid 1 mg PO DAILY 30 Days #30 tablet Physician Discharge Instructions: New acute stroke. Discharged to inpatient rehab for continued physical therapy and speech therapy. Recommend slowly increasing blood pressure medication for better blood pressure control. Allowing for some permissive hypertension over next few days. Started on low dose norvasc to uptitrate. Home nifedipine was held during hospitalization as patient couldn't take it due to diet restrictions (med can't be crushed). May need to titrate back up on home medication if able to. Speech therapy: Pt presented with a mild oral dysphagia characterized by moderate to severe premature spillage to the vallecula with all consistencies. Pt exhibited moderate to sevre premature spillage to the pyriform sinuses with thin by spoon, thin by cup sequential sips, nectar by cup, thin by straw, whole barium tablet with nectar by cup. Pt presented with a moderate pharyngeal dysphagia characterized by moderately reduced epiglottic deflection, osteophytes at C5 & C6, mild to moderate residue in the vallecula with all consistencies, and trace to moderate residue in the pyriform sinuses with all consistencies. Additional swallows reduced and/or removed pharyngeal residue. Pt presented with a esophageal phase that is within normal limits. All consistencies emptied into stomach without incident. Diet Recommendations: Mechanical soft chopped solids, honey thick liquids, whole medications with puree Followup: [facility] [Primary Care Provider] - Time spent managing pt's care (in minutes): 45
[2021-10-23 17:55] VITALS: BP 186/72; TEMP 98.6; BMI 29.9
== END 2021-10-23 19:04 | DRG 65 ==
LOC: ER 08:48 → ERHOLD 11:46 → 2ND 13:48
PROVIDERS: ADMIT Hospitalist; ATTEND Hospitalist
DX: I63.9 Cerebral infarction, unspecified (principal); G81.94 Hemiplegia, unspecified affecting left nondominant side; R29.810 Facial weakness; R13.11 Dysphagia, oral phase; R13.13 Dysphagia, pharyngeal phase; R29.704 NIHSS score 4; F03.90 Unspecified dementia, unspecified severity, without behavioral disturbance, psychotic disturbance, mood disturbance, and anxiety; E11.9 Type 2 diabetes mellitus without complications; F41.8 Other specified anxiety disorders; E78.5 Hyperlipidemia, unspecified; E03.9 Hypothyroidism, unspecified; M25.552 Pain in left hip; W19.XXXA Unspecified fall, initial encounter; Z20.822 Contact with and (suspected) exposure to COVID-19; Y92.009 Unspecified place in unspecified non-institutional (private) residence as the place of occurrence of the external cause
CPT/HCPCS: 36415; 70450; 70496; 70498; 70544; 70549; 70553; 71045; 72170; 72192; 74230; 80048; 80053; 80061; 80076; 81003; 81015; 82565; 82947; 83735; 83880; 84100; 84145; 84443; 84484; 85025; 85610; 85730; 86140; 92610; 92611; 93005; 93880; 94760; 96361; 96374; 96375; 97112; 97161; 97530; 99285; A9577; J0360; J2270; J2405; J3480; J7030; J7040; Q9967; U0003

== ENCOUNTER 2022-01-10 10:18 | Emergency (ER) | payer OTHER ==
--- OUTSIDE RECORDS SUMMARY | 2022-01-10 10:23 | XMS REPORT | Continuity of Care Document ---
:1935 Author Organization [facility] [place] t Address [address] [place] [address] Care Team Providers Name Role Phone AALIYAH Primary Care Physician Unavailable JERRY SUMMERS Attending Clinician Unavailable [id number] Attending Clinician Unavailable Marimar COPELAND, L Attending Clinician Unavailable Michelle LOU Attending Clinician Unavailable Bob LEROY Attending Clinician Cintia LEROY Attending Clinician Dasha LEROY P Attending Clinician Doctor Unassigned, Name Attending Clinician Unavailable Zaheer Awan NP Attending Clinician Zaheer AWAN Attending Clinician Unavailable ASHISH Attending Clinician Unavailable DR TORI Attending Clinician Unavailable JERRY SUMMERS Admitting Clinician Unavailable [id number] Admitting Clinician Unavailable Michelle LOU Admitting Clinician Unavailable Michelle Lou MD Admitting Clinician Zaheer AWAN Admitting Clinician Unavailable LUCINA Admitting Clinician Unavailable DR TORI Admitting Clinician Unavailable Payers Payer Name Policy Type Policy Number Effective Date Expiration Date S hillary AETM AETM [id number] Problems Condition Condition Condition Status Onset Resolution Last Treating Co mments Source Name Details Category Date Date Treatment Clinician Date Accident Accident Disease Active 2020-11 Unive rs due to due to 2-26 ity of mechanical [place] 00 Medical without without Branch injury, injury, initial initial encounter encounter No known No known Disease Unive rs active active ity of problems problems [facility] Allergies, Adverse Reactions, Alerts Allergy Allergy Status Severity Reaction(s) Onset Inactive Treating Comm ents Source Name Type Date Date Clinician NO KNOWN Drug Active Univers ALLERGIE Class ity of [facility] [place] [facility] Social History Social Habit Start Date Stop Date Quantity Comments Source History SDOH University o f Alcohol Std [place] [facility] Drinks Branch History SDOH University o f Alcohol Binge [place] [facility] History SDOH University o f Alcohol Comment [place] [facility] Exposure to Not sure University of SARS-CoV-2 [place] [facility] (event) [facility] Tobacco use and 2021 2021 Never used Universit y of exposure 00:00:00 00:00:00 [facility] Branch Alcohol intake 2021 2021 Lifetime University of 00:00:00 00:00:00 non-drinker [place] [facility] (finding) Branch History SDOH 2021 2021 1 University o f Alcohol Frequency 00:00:00 00:00:00 [facility] [place] [facility] edical [place] Sex Assigned At [birth year] Universit y of 00:00:00 00:00:00 [facility] Smoking Status Start Date Stop Date Source Never smoker [facility] Unknown if ever smoked Universit y [facility] [place] [facility] Medications Ordered Filled Start Stop Current Ordering Indication Dosage Frequency Signature Comments Components Source Medication Medication Date Date Medication? Clinician (SIG) Name Name vitamin 2020-11 Yes [id number] 1000ug Take 1 U nivers B-12 1,000 2-31 tablet by ity of mcg tablet 00:00: mouth [place] 00 daily. Medical Branch vitamin 2020-11 Yes [id number] 1000ug Take 1 U nivers B-12 1,000 2-31 tablet by ity of mcg tablet 00:00: mouth [place] 00 daily. Medical Branch MULTIVIT-FO 2020-11 Yes Take by Un amari LIC 2-30 mouth. ity of ACID-ZINC-V 22:44: [place] IT C ORAL Medical Branch melatonin 5 2020-11 Yes Take by Un amari mg/15 mL 2-30 mouth. ity of Liqd 22:44: [place] [address] [place] [address] Branch Levothyroxi 2020-11 Yes 50ug Take 50 Uni vers ne 50 mcg 2-30 mcg by ity of capsule 22:44: mouth [place] 31 daily. Medical Branch NIFEdipine 2020-11 Yes 60mg Take 60 mg U nivers ER 60 mg 2-30 by mouth 2 ity o f tablet 22:44: (two) [place] 31 times Medical daily. Branch clopidogreL 2020-11 Yes 75mg Take 75 mg Univers 75 mg 2-30 by mouth ity of tablet 22:44: daily. [place] [address] Medical Branch amLODIPine 2020-11 Yes 5mg Take 5 mg Un amari 5 mg tablet 2-30 by mouth ity of 22:44: daily. [place] [address] Medical Branch trimethopri 2020-11 Yes 100mg Take 100 U nivers m 100 mg 2-30 mg by ity of tablet 22:44: mouth [place] 31 daily. Medical Branch SERTraline 2020-11 Yes 200mg Take 200 Un amari 100 mg 2-30 mg by ity of tablet 22:44: mouth [place] 31 daily. Medical Branch folic acid 2020-11 Yes Take by Uni vers 0.8 mg Cap 2-30 mouth. ity of 22:44: [address] MULTIVIT-FO 2020-11 Yes Take by Un amari LIC 2-30 mouth. ity of ACID-ZINC-V 22:44: [place] [address] Medical Branch melatonin 5 2020-11 Yes Take by Un amari mg/15 mL 2-30 mouth. ity of Liqd 22:44: [address] Branch Levothyroxi 2020-11 Yes 50ug Take 50 Uni vers ne 50 mcg 2-30 mcg by ity of capsule 22:44: mouth [place] 31 daily. Medical Branch NIFEdipine 2020-11 Yes 60mg Take 60 mg U nivers ER 60 mg 2-30 by mouth 2 ity o f tablet 22:44: (two) [place] 31 times Medical daily. Branch clopidogreL 2020-11 Yes 75mg Take 75 mg Univers 75 mg 2-30 by mouth ity of tablet 22:44: daily. [address] Branch amLODIPine 2020-11 Yes 5mg Take 5 mg Un amari 5 mg tablet 2-30 by mouth ity of 22:44: daily. [address] trimethopri 2020-11 Yes 100mg Take 100 U nivers m 100 mg 2-30 mg by ity of tablet 22:44: mouth [place] 31 daily. Medical Branch SERTraline 2020-11 Yes 200mg Take 200 Un amari 100 mg 2-30 mg by ity of tablet 22:44: mouth [place] 31 daily. Medical Branch folic acid 2020-11 Yes Take by Uni vers 0.8 mg Cap 2-30 mouth. ity of 22:44: [place] 31 Medical Branch metformin 2020-11- No 500mg Take 500 Un amari HCl 2-30 12-30 mg by ity of (METFORMIN 16:10: 00:00 mouth 2 [place] ORAL) 35 :00 (two) Medical times Branch daily. vitamin 2020-11 Yes 1000ug 1,000 mcg, Un amari B-12 2- Oral, ity of (CYANOCOBAL 15:00: [place] 00 First dose Medical tablet (after Branch 1,000 mcg last modificati on) on Anya 11/25/21 at 0900, Until Discontinu ed, Routine amoxicillin 2020-11 Yes [id number] 500mg Take 1 Univers -pot 2-30 tablet by ity of clavulanate 00:00: mouth 2 [place] 500 mg 00 (two) Medical 500-125 mg times Branch tablet daily. amoxicillin 2020-11 Yes [id number] 500mg Take 1 Univers -pot 2-30 tablet by ity of clavulanate 00:00: mouth 2 [place] 500 mg 00 (two) Medical 500-125 mg times Branch tablet daily. magnesium 2020-11 Yes 800mg 800 mg, Univ ers oxide 01-24 Oral, ity of (MAG-OX 15:00: DAILY, [place] 400) tablet 00 First dose Me dical 800 mg on Mon Branch 11/23/21 at 0900, Until Discontinu ed, Routine cyanocobala 2020-11- No 1000ug 1,000 mcg, Univers min 01-23 Intramuscu ity of (VITAMIN 22:15: 14:52 lar, Q24H, [place] B12) 00 :00 3 doses, Medical injection First dose Bran ch 1,000 mcg on 11/22/21 at 1615, Last dose on Mon11/24/21 at 1615, Routine vitamin 2020-11- No 1000ug 1,000 mcg, U nivers B-12 01-23 Oral, ity of (CYANOCOBAL 15:00: 21:07 DAILY, [place]) 00 :05 First dose Medical tablet on [facility] 1,000 mcg 11/22/21 at 0900, Until Discontinu ed, Routine KCL 2020-11- No 20meq 20 mEq, Univers (KLOR-CON 01-23 Oral, ity of M20) tablet 14:00: 14:50 ONCE, 1 [place] 20 mEq 00 :00 dose, On Medical [facility] 11/22/21 at 0800, Routine levothyroxi 2020-11 Yes 50ug 50 mcg, Uni vers ne 01-23 Oral, ity of (SYNTHROID) 12:00: QAM-0600, [place] tablet 50 00 First dose Medi malcolm mcg on [facility] 11/22/21 at 0600, Until Discontinu ed melatonin 2020-11 Yes 6mg 6 mg, Univers (MELATIN) 01-23 Oral, QHS, ity of tablet 6 mg 03:00: First dose [place] 00 on [facility] 11/21/21 Branch at 2100, Until Discontinu ed, Routine heparin 2020-11 Yes 5000U 5,000 Univers (porcine) 01-23 Units, ity of injection 02:00: Subcutaneo [place] 5,000 Units 00 us, Q12H, Med ical First dose Branch on [place] 11/21/21 at 2000, Until Discontinu ed, Routine amoxicillin 2020-11- Yes 500mg 500 mg, U nivers -pot 01-23 Oral, BID, ity of clavulanate 02:00: 01:59 10 doses, [place] 500 mg 00 :00 First dose Medical (AUGMENTIN on [facility] 500) 11/21/21 500-125 mg at 2000, tablet 500 Last dose mg on Mon11/26/21 at 0800, ENEDINA
Re ason for Anti-Infec tive: Documented Infection< br>Documen karolina Infection Site: Urine
D uration of Therapy: 7 days pantoprazol 2020-11 Yes 40mg 40 mg, Univ ers e 01-22 Oral, ity of (PROTONIX) 15:00: DAILY, [place] EC tablet 00 First dose Medi malcolm 40 mg on [facility] 11/21/21 at 0900, Until Discontinu ed, Routine clopidogreL 2020-11 Yes 75mg 75 mg, Univ ers (PLAVIX) 2-26 Oral, ity of tablet 75 15:00: DAILY, [place] mg 00 First dose Medical on [facility] 11/21/21 at 0900, Until Discontinu ed, Routine sennosides 2020-11 Yes 8.6mg 8.6 mg, Uni vers (SENOKOT) 2- Oral, ity of tablet 8.6 15:00: DAILY, [place] mg 00 First dose Medical on [facility] 11/21/21 at 0900, Until Discontinu ed, Routine SERTraline 2020-11 Yes 200mg 200 mg, Uni vers (ZOLOFT) 2- Oral, ity of tablet 200 15:00: DAILY, [place] mg 00 First dose Medical on [facility] 11/21/21 at 0900, Until Discontinu ed, Routine foLIC acid 2020-11 Yes 1mg 1 mg, Univer s (FOLATE) 2- Oral, ity of tablet 1 mg 15:00: DAILY, [place] 00 First dose Medical on [facility] 11/21/21 at 0900, Until Discontinu ed amLODIPine 2020-11 Yes 5mg 5 mg, Univer s (NORVASC) 2- Oral, ity of tablet 5 mg 15:00: DAILY, [place] 00 First dose Medical on [facility] 11/21/21 at 0900, Until Discontinu ed, Routine Sliding 2020-11 Yes Subcutaneo Univ ers Scale 2-26 us, TID ity of Insulin - 14:00: MEALS+HS, [place] Lispro 00 First dose Medical (HumaLOG) + on [facility] Fsbg 11/21/21 Testing at 0800, Until Discontinu ed, Routine polyethylen 2020-11 Yes 17g 17 g, Unive rs e glycol 2-26 Oral, BID, ity o f 3350 powder 14:00: First dose [place] 17 g 00 on [facility] 11/21/21 Branch at 0800, Until Discontinu ed, Routine NIFEdipine 2020-11 Yes 60mg 60 mg, Unive rs ER tablet 2- Oral, BID, ity of 60 mg 14:00: First dose [place] 00 on [facility] 11/21/21 Branch at 0800, Until Discontinu ed, Routine lactated 2021-1 2021- No 500mL at 100 Unive rs ringers IV 01-22 mL/hr, 500 it y of infusion 14:00: 16:03 mL, [place] 500 mL 00 :00 Intravenou Medical s, ONCE, 1 Branch dose, On [place] 11/21/21 at 0800, Routine glucagon 2020-11 Yes 1mg 1 mg, Univers (GLUCAGEN 01-22 Intramuscu ity of DIAGNOSTIC 12:49: lar, PRN, [place] KIT) 35 Starting Medical injection 1 on [facility] mg 11/21/21 at 0649, Until Discontinu ed, ENEDINA, Blood Glucose < or = 70 mg/dL and patient is unable to swallow or has mental changes. dextrose 50 2020-11 Yes 25mL 25 mL, Univ ers % in water 01-22 Slow IV ity of (D50W) 12:49: Push, PRN, [place] injection 35 Starting Medica l 25 mL on [facility] 11/21/21 at 0649, Until Discontinu ed, ENEDINA, Blood Glucose < or = 70 mg/dL and patient is unable to swallow or has mental status changes. ondansetron 2020-11 Yes 4mg 4 mg, Slow Univers (ZOFRAN 01-22 IV Push, ity of (PF)) 12:22: Q6HPRN, [place] injection 4 29 Starting Medi malcolm mg on [facility] 11/21/21 at 0622, Until Discontinu ed, Routine, Nausea and Vomiting (N/V) acetaminoph 2020-11 Yes 650mg 650 mg, Un amari en 01-22 Oral, ity of (TYLENOL) 12:22: Q6HPRN, [place] tablet 650 23 Starting Medic al mg on [facility] 11/21/21 at 0622, Until Discontinu ed, Routine, Pain (scale 1-3) iopamidol 2020-11 202- No 80mL 80 mL, Un amari (ISOVUE 01-22 Intravenou ity o f 370-500 mL) 07:30: 06:22 s, ONCE, 1 [place] injection 00 :00 dose, On Medica l 80 mL [facility] 11/21/21 at 0130, Routine VALSARTAN 2020-11- No Take by Uni vers ORAL 2-26 12-26 mouth. ity of 06:28: 00:00 [place] 36 :00 Medical Branch losartan 2020-2020- No 100mg Take 100 Uni vers 100 mg - 12-26 mg by ity of tablet 06:28: 00:00 mouth [place] 36 :00 daily. Medical Branch Trimethopri Trimethopri 2019- No Johana 1 tablet HETAL Espino 509-28 [facility] 00[facility] cefTRIAXone 2019-0 2019- No 1000mg 1,000 mg, Univers (ROCEPHIN) 02-1724 Slow IV ity o f injection 20:15: 19:54 Push, [place] 1,000 mg 00 :00 ONCE, 1 Medical dose, [facility] 02/18/20 at 1515, STAT
Re ason for Anti-Infec tive: Documented Infection< br>Documen karolina Infection Site: Urine
D uration of Therapy: 7 days KCL 2019-2019- No 40meq 40 mEq, Univers (KLOR-CON 02-1724 Oral, ity of M20) tablet 19:00: 17:57 ONCE, 1 [place] 40 mEq 00 :00 dose, [facility] 02/18/20 at Branch 1400, ENEDINA metformin 2020-0 Yes 500mg Take 500 Uni vers HCl 3-24 mg by ity of (METFORMIN 18:47: mouth 2 [place] ORAL) 34 (two) Medical times [place] daily. losartan 2020-0 Yes 100mg Take 100 Univ ers 100 mg 3-24 mg by ity of tablet 18:47: mouth [place] 34 daily. Medical Branch Levothyroxi 2020-0 Yes 150ug Take 150 U nivers ne 150 mcg 3-24 mcg by ity of capsule 18:47: mouth [place] 34 daily. Medical Branch VALSARTAN 2020-0 Yes Take by Univ ers ORAL 3-24 mouth. ity of 16:25: [place] 09 Medical Branch metformin 2020-0 Yes 500mg Take 500 Uni vers HCl 3-24 mg by ity of (METFORMIN 13:47: mouth 2 [place] ORAL) 34 (two) Medical times [place] daily. losartan 2020-0 Yes 100mg Take 100 Univ ers 100 mg 3-24 mg by ity of tablet 13:47: mouth [place] 34 daily. Medical Branch Levothyroxi Yes 150ug Take 150 U nivers ne 150 mcg 3-24 mcg by ity of capsule 13:47: mouth [place] 34 daily. Medical Branch VALSARTAN Yes Take by [facility] ers ORAL 3-24 mouth. ity of 11:25: [place] 09 Medical Branch cefpodoxime 2020- No [id number] 200mg Take 1 Univers 200 mg 3-24 - tablet by ity of tablet 00:00: 04:59 mouth 2 [place] 00 :00 (two) Medical times Branch daily for 7 days. Clopidogrel Clopidogrel Yes Johana [address] [facility] Bisulfate Bisulfate [facility] Metformin Metformin Yes Johana [address] [facility] HCl HCl Moose with a [facility] - meal [facility] B1 Natural B1 Natural Yes Johana as [facility] Rosuvastati Rosuvastati Yes Johana [address] [facility] n Calcium n Calcium [facility] Nifedical Nifedical Yes Johana [address] [facility] XL XL [facility]ose [facility] Losartan Losartan Yes Johana [address] Potassium Potassium [facility] Hydrochloro Hydrochloro Yes Johana as [facility] thiazide thiazide Moose directed [facility] Levothyroxi Levothyroxi Yes Johana [address] [facility] ne Sodium ne Sodium Moose in the [facility] - morning on Memoria an empty l stomach Outpati ent Clinics Estradiol Estradiol Yes Johana as [facility] Moose directed [facility] Vital Signs Vital Name Observation Time Observation Value Comments Source Systolic blood 2021-11-25 21:52:00 143 mm[Hg] Univer sity of pressure [facility] Diastolic blood 2021-11-25 21:52:00 65 mm[Hg] Unive rsity of [facility] Heart rate 2021-11-25 21:52:00 79 /min [facility] Body temperature 2021-11-25 21:52:00 36 Zohreh [facility] Respiratory rate 2021-11-25 21:52:00 18 /min Univ ersity of [place] [facility] Oxygen saturation in 2021-11-25 21:52:00 96 /min University of Arterial blood by [facility] malcolm Pulse oximetry Branch Body height 2021 03:41:00 157.5 cm Universi ty of [place] [facility] Body weight 2021 03:41:00 77.111 kg Universi ty of [place] [facility] BMI 2021 03:41:00 31.09 kg/m2 Universi ty of [place] [facility] Systolic blood 2020-02-18 20:00:00 138 mm[Hg] Univer sity of pressure [place] [facility] Diastolic blood 2020-02-18 20:00:00 98 mm[Hg] Unive rsity of pressure [place] [facility] Heart rate 2020-02-18 20:00:00 78 /min Universi ty of [place] [facility] Respiratory rate 2020-02-18 20:00:00 18 /min Univ ersity of [place] [facility] Oxygen saturation in 2020-02-18 20:00:00 97 /min University of Arterial blood by [facility] Pulse oximetry Branch Body temperature 2020-02-18 15:56:00 37.06 Zohreh Univ ersity of [place] [facility] Body height 2020-02-18 15:56:00 160 cm Universi ty [facility] [place] [facility] Body weight 2020-02-18 15:56:00 74.39 kg Universi ty [facility] [place] [facility] BMI 2020-02-18 15:56:00 29.05 kg/m2 Universi ty of [place] [facility] Systolic blood 2020-02-18 20:00:00 138 mm[Hg] Univer sity of pressure [place] [facility] Diastolic blood 2020-02-18 20:00:00 98 mm[Hg] Unive rsity of pressure [place] [facility] Heart rate 2020-02-18 20:00:00 78 /min Universi ty [facility] [place] [facility] Respiratory rate 2020-02-18 20:00:00 18 /min Univ ersity of [place] [facility] Oxygen saturation in 2020-02-18 20:00:00 97 /min University of Arterial blood by [facility] Pulse oximetry Branch Body temperature 2020-02-18 15:56:00 37.06 Zohreh Univ ersity of [place] [facility] Body height 2020-02-18 15:56:00 160 cm Universi ty [facility] [place] [facility] Body weight 2020-02-18 15:56:00 74.39 kg [facility] BMI 2020-02-18 15:56:00 29.05 kg/m2 [facility] Procedures Procedure Date / Time Performing Clinician Source Performed POCT GLUCOSE (AUTOMATED) 2021-11-25 23:42:00 [facility] 2021-11-25 18:21:00 Joseluis Fountain [place] [facility] POCT GLUCOSE (AUTOMATED) 2021-11-25 17:08:00 [facility] ([facility]OMATED) 2021-11-25 03:05:00 [facility] (AUTOMATED) 2021-11-24 23:11:00 [facility]dish [facility]SE (AUTOMATED) 2021-11-24 18:30:00 Dionicio Rojas [facility] COVID-19 (ID NOW RAPID 2021-11-24 18:29:00 Arthur [facility] TESTING) [facility] LAB ONLY COVID 2021-11-24 18:29:00 Arthur [facility] POCT GLUCOSE (AUTOMATED) 2021-11-24 13:27:00 Dionicio Rojas [facility] MAGNESIUM 2021-11-24 11:28:00 Arthur [facility] BASIC METABOLIC PANEL (NA, 2021-11-24 11:28:00 Arthur [facility] K, CL, CO2, GLUCOSE, BUN, Medica l Branch CREATININE, CA) CBC WITH DIFF 2021-11-24 11:28:00 Arthur [facility] POCT GLUCOSE (AUTOMATED) 2021-11-24 03:11:00 Dionicio Rojas [facility] POCT GLUCOSE (AUTOMATED) 2021-11-24 01:57:00 Dionicio Rojas [facility] POCT GLUCOSE (AUTOMATED) 2021-11-23 23:18:00 Dionicio Rojas [facility] POCT GLUCOSE (AUTOMATED) 2021-11-23 18:52:00 Dionicio Rojas [facility] POCT GLUCOSE (AUTOMATED) 2021-11-23 14:05:00 Dionicio Rojas [facility] MAGNESIUM 2021-11-23 11:26:00 Arthur [facility] BASIC METABOLIC PANEL (NA, 2021-11-23 11:26:00 Arthur [facility] K, CL, CO2, GLUCOSE, BUN, Medica l Branch CREATININE, CA) CBC WITH DIFF 2021-11-23 11:26:00 Arthur [facility] POCT GLUCOSE (AUTOMATED) 2021-11-23 04:40:00 Dionicio Rojas [facility] POCT GLUCOSE (AUTOMATED) 2021-11-22 23:51:00 Dionicio Rojas [facility] POCT GLUCOSE (AUTOMATED) 2021-11-22 18:05:00 Dionicio Rojas [facility] POCT GLUCOSE (AUTOMATED) 2021-11-22 14:34:00 Dionicio Rojas [facility] VITAMIN B6, PLASMA 2021-11-22 11:55:00 Arthur [facility] MAGNESIUM 2021-11-22 11:55:00 Arthur [facility] BASIC METABOLIC PANEL (NA, 2021-11-22 11:55:00 Arthur [facility] K, CL, CO2, GLUCOSE, BUN, Medica l Branch CREATININE, CA) CBC WITH DIFF 2021-11-22 11:55:00 Arthur [facility] POCT GLUCOSE (AUTOMATED) 2021-11-22 03:24:00 Dionicio Rojas [facility] POCT GLUCOSE (AUTOMATED) 2021-11-22 00:30:00 Dionicio Rojas [facility] METHYLMALONIC ACID, SERUM 2021 22:31:00 Juan Gibson [facility] MAGNESIUM 2021 22:31:00 Arthur [facility] VITAMIN B12, LEVEL 2021 22:31:00 Arthur [facility] TRIIODOTHYRONINE 2021 22:31:00 Earnest Medina [facility] BASIC METABOLIC PANEL (NA, 2021 22:31:00 [facility], [facility], CO2, GLUCOSE, BUN, Medica l Branch CREATININE, CA) CBC WITH DIFF 2021 22:31:00 Arthur [facility] PROTHROMBIN TIME / INR 2021 22:31:00 Earnest Medina [facility] ACTIVATED PARTIAL THRMPLAS 2021 22:31:00 [facility] HOMOCYSTEINE 2021 22:31:00 Arthur [facility] VITAMIN B1 (THIAMINE), 2021 22:31:00 [facility] WHOLE BLOOD [facility] URINALYSIS 2021 18:16:00 Earnest Medina [facility] POCT GLUCOSE (AUTOMATED) 2021 15:55:00 Dionicio Rojas [facility] CT ABDOMEN PELVIS W 2021 06:25:41 Dionicio Rojas [facility] CONTRAST [facility] CT CERVICAL SPINE WO 2021 06:16:39 Dionicio Rojas [facility] CONTRAST [facility] CT HEAD WO CONTRAST 2021 06:16:39 Dionicio Rojas [facility] MAGNESIUM 2021 05:24:00 Earnest Medina [facility] FREE T4 2021 05:24:00 [facility] TH[facility]RO[facility]IM[facility] 2021 05:24:00 Earnest Medina [facility] HORMONE [facility] COMP. METABOLIC PANEL 2021 05:24:00 Dionicio Rojas [facility] ([id number]) Medical [place] CBC WITH DIFF 2021 05:24:00 Dionicio Rojas [facility] COVID-19 (ID NOW RAPID 2021 05:12:00 Dionicio Rojas [facility] TESTING) Medical Branch LAB ONLY COVID 2021 05:12:00 Dionicio Rojas [facility] INTERPRETATION [facility] ASSIGNMENT OF BENEFITS 2021 04:42:02 Doctor Unasslexie, [facility] [place] [facility] NOTICE OF PRIVACY 2021 03:20:39 Doctor Vinny, [facility] PRACTICES [place] [facility] CONSENT/REFUSAL FOR 2021 03:20:[address] [facility] DIAGNOSIS AND TREATMENT [place] [facility] HOSPITAL ADMISSION MISC - 2021-11-20 06:01:00 Doctor Vinny, [facility] MEDICARE PATIENTS RIGHTS [place] [facility] [place] IMPORTANT MESSAGE [id number] 2021-10-28 00:00:00 ENCPL [id number] 2021-10-28 00:00:00 ENCPL [id number] 2021-10-28 00:00:00 ENCPL [id number] 2021-10-28 00:00:00 ENCPL [id number] 2021-10-28 00:00:00 ENCPL [id number] 2021-10-28 00:00:00 ENCPL [id number] 2021-10-28 00:00:00 ENCPL BASIC METABOLIC PANEL (NA, 2020-02-18 19:53:00 Lazara Awan [facility] K, CL, CO2, GLUCOSE, BUN, Medica l Branch CREATININE, CA) URINALYSIS 2020-02-18 17:49:00 Lazara Awan [facility] XR CHEST 1 VW 2020-02-18 17:08:43 Lazara Awan [facility] ADC,CLC OR LCC ONLY - 2020-02-18 17:03:[address] [facility] INFLUENZA A & B DIRECT Medical B ranch ANTIGEN MAGNESIUM 2020-02-18 17:02:00 Lazara Awan [facility] TROPONIN I 2020-02-18 17:02:00 Lazara Awan [facility] COMP. METABOLIC PANEL 2020-02-18 17:02:[address] [facility] ([id number]) [facility] CBC WITH DIFFERENTIAL 2020-02-18 17:02:00 Lazara Awan [facility] N-TERMINAL PRO-BNP 2020-02-18 17:02:00 Lazara Awan [facility] EKG-12 LEAD 2020-02-18 16:12:34 Lazara Awan [facility] NOTICE OF PRIVACY 2020-02-18 15:44:39 Doctor Unassigned, Kate ity of [place] PRACTICES [place] [facility] CONSENT/REFUSAL FOR 2020-02-18 15:44:29 Doctor Unassigned, Cedric [facility] DIAGNOSIS AND TREATMENT [place] [facility] Encounters Start End Encounter Admission Attending Care Care Encounter Source Date/Time Date/Time Type Type Clinicians Facility Department ID 2021-12-23 Outpatient 3 KRISTOPHER, ENCPL CVA [id number] [facility] 13:23:01 JERRY 1127 2021-12-23 Outpatient 3 [id number] [facility] REF [id number] [facility] 13:22:52 1126 2021-12-22 Outpatient STLMLC STLMLC [id number] [facility] 11:04:46 [id number] Jolene Beatriz d [facility] 2021-11-26 2021-11-26 Transition YUDITH Minaya [id number] [facility] 00:00:00 00:00:00 of Care Rosario MENJIVAR 350.1.13.10 i ty of [place] [id number] [facility] [address] 2021-11-20 2021-11-25 Outpatient X [facility] [id number] Univers 21:42:00 19:20:00 JAGDISH ity of [facility] 2021-11-20 2021-11-25 Emergency Dionicio Rojas 1.2.840. 114 [id number] Univers 21:42:00 19:20:00 Bipin Chamberlain 350.1.13.10 [facility] 4.2.7.2.686 [place] [id number] [facility] [address] 2021-11-20 2021-11-20 Orders Doctor FELIX 1.2.840.114 [id number] Univers 00:00:00 00:00:00 Only UnassignedSHORTY 350.1.13.10 ity of [facility] 4.2.7.2.686 [place] [id number] [place] [address] [address] 2020-11-10 2020-11-10 Outpatient STLMLC STLC [id number] [facility] 2020-11-05 2020-11-05 Outpatient [facility]LMLC [facility]LC [id number] [facility] 2020-11-04 2020-11-04 Outpatient [facility]LMLC [facility] [id number] [facility] 2020-11-04 2020-11-04 Outpatient [facility]LMLC STLC [id number] [facility] 2020-09-02 2020-09-02 Outpatient STLMLC STLC [id number] [facility] 2020-04-02 2020-04-02 [facility] [id number] 14:30:00 14:30:00 t Specialty/U Jaylene kes - Specialty rology Memori a /Urology Clinic l Clinic Outpati ent [facility] 2020-02-18 2020-02-18 Emergency Drever, [facility] [id number] Univers 10:47:51 16:20:00 Lazara Valladares 350.1.13.10 ity [facility] 4.2.7.2.686 [facility] [id number] [address] 2020-02-18 2020-02-18 Emergency X DREVER, [facility] ERT [id number] Univers 10:47:51 16:20:00 LAZARA ity of [facility] 2020-02-18 2020-02-18 Emergency DreUNM [facility] [id number] 10:47:51 16:20:00 Lazara G [place] 350.1.13.10 [place] 4.2.7.2.686 [place] [id number] 2019-12-27 2019-12-27 [facility] [id number] 15:30:00 15:30:00 t Specialty/U Jaylene kes - Specialty rology Memori a /Urology Clinic l Clinic Outpati ent Clinics 2019-09-24 2019-09-27 Inpatient [facility]ISH [facility] [id number] [place] 00:00:00 00:00:00 ROSENDA Bowers Method i [facility] 2019-03-26 2019-03-26 Emergency E [facility] 7502 [facility] 12:27:00 12:27:00 2016-11-14 2016-11-[address] [facility] [id number] [place] 14:58:00 16:13:00 [facility] Results Test Description Test Time Test Comments Results Result Comments Source POCT GLUCOSE (AUTOMATED) 2021-11-25 23:42:50 Test Item Value Reference Range Interpretation Comme nts POCT GLU (test code = 8986768447) 151 mg/dL 70-110 H Lab Interpretation (test code = 49788-6) [facility]normal [facility]IAM[facility]), WHOLE [id number] 18:19:33 Test Item Value Reference Range Interpretation Comments Vitamin B1, Whole 65 nmol/L 70-180 L INTERPRETI VE Blood (test code = INFORMATI ON: Vitamin 28149-4) B1, Whole Blood This assay measures the concentration o f thiamine diphos phate (TDP), the prim alon active form of vitamin B1. Approximate ly 90 percent of jolly min B1 present in whol e blood is TDP. Thiamin e and thiamine monophosphate, which comprise the re maining 10 percent, are not measured. This test was developed a nd its performance characteristics determined by [facility]. I t has not been cleare d or approved by the [place] Food and Drug Administration. This test was perfor med in a CLIA certifie d laboratory and is intended for cl inical purposes.Perfor med By: JALEN [address] [address] [place], [place] [address]Twehjrxjan Director: Marley Christianson MD Lab Interpretation Abnormal (test code = 11518-5) [facility]2021-11-25 17:09:39 Test Item Value Reference Range Interpretation Comments POCT GLU (test code = 6964822889) 173 mg/dL 70-110 H Lab Interpretation (test code = Abnormal 05636-1) [facility] B6, [id number] 14:23:35 Test Item Value Reference Range Interpretation Comments VIT B6 (test 28.6 nmol/L 20.0-125.0 INTERPRETIVE IN FORMATION: code = 85576-0) Vitamin B6 ( Pyridoxal 5-Phosphate) Py ridoxal 5'-phosphate me asured in a specimen collec karolina following an 8- hour or overnight fast accurately indicates vitam in B6 nutritional sta tus. Non-fasting spe cimen concentration r eflects recent vitamin intake. This test was d eveloped and its perform ance characteristics determined by [facility] or[facility]en. It has not been cl eared or approved by the US Food and Drug Admini stration. This test was p erformed in a CLIA certifie d laboratory and is intended for clinical purposes.Perfor med By: [facility] [address] [place], [place] [address]Cuhhzdh ory Director: Marley Christianson MD [facility]entonMETHYLMALONIC ACID, [id number] 12:18:22 Test Item Value Reference Range Interpretation Comments MMA Serum/Plasma, 0.37 umol/L 0.00-0.40 INTERPRETI VE INFORMATION: Vitamin B12 MMA Serum/Plasm a, ? ? ? Status (test code ? = 80788-7) ?Vitamin B12 St atus This test was develo ped and its performance characteristics determined by [facility]. I t has not been cleared or approved by the [place] Food and Drug Administration. This test was performed i n a CLIA certified labor atory and is intended for clinical purposes.Perfor med By: [facility] [address] [place], [place] [address]U aboratory Director: Marley Christianson MD [facility] GLUCOSE (AUTOMATED)2021-11-25 03:06:04 Test Item Value Reference Range Interpretation Comments POCT GLU (test code = 7061557976) 217 mg/dL 70-110 H Lab Interpretation (test code = Abnormal 46778-3) [facility] GLUCOSE (AUTOMATED)2021-11-24 23:12:46 Test Item Value Reference Range Interpretation Comments POCT GLU (test code = 7985471697) 169 mg/dL 70-110 H Lab Interpretation (test code = Abnormal 52328-8) [facility] GLUCOSE (AUTOMATED)2021-11-24 18:31:10 Test Item Value Reference Range Interpretation Comments POCT GLU (test code = 2312741523) 169 mg/dL 70-110 H Lab Interpretation (test code = Abnormal 30138-3) [facility]2021-12-29 16:41:50 Test Item Value Reference Range Interpretation Comments Homocysteine (test code = 13.2 umol/L 4.7-12.6 H 2267959005) Lab Interpretation (test code = Abnormal 84877-6) [facility] GLUCOSE (AUTOMATED)2021-11-24 13:29:11 Test Item Value Reference Range Interpretation Comments POCT GLU (test code = 6502606825) 131 mg/dL 70-110 H Lab Interpretation (test code = Abnormal 11622-0) [facility]2021-12-29 13:11:09 Test Item Value Reference Range Interpretation Comments MAGNESIUM (test code = 7921403846) 2.1 mg/dL 1.7-2.4 Lab Interpretation (test code = Normal 46951-2) [facility] METABOLIC PANEL (NA, K, CL, CO2, GLUCOSE, BUN, CREATININE, CA)2021-11-24 12:45:03 Test Item Value Reference Range Interpretation Comments NA (test code = 138 mmol/L 135-145 9953106882) K (test code = 4.2 mmol/L 3.5-5.0 6458110309) CL (test code = 107 mmol/L 98-108 8784734217) CO2 TOTAL (test code = 23 mmol/L 23-31 4300229388) AGAP (test code = 2-16 3817872179) BUN (test code = 21 mg/dL 7-23 9597712765) GLUCOSE (test code = 141 mg/dL 70-110 H 2501524289) CREATININE (test code = 0.83 mg/dL 0.50-1.04 8088762966) CALCIUM (test code = 8.6 mg/dL 8.6-10.6 8895425523) eGFR (test code = mL/min/1.73m2 1633625070) SHAHEED (test code = SHAHEED) Association of [...] tests). Lab Interpretation Abnormal (test code = 91007-2) [facility] WITH [id number] 11:57:33 Test Item Value Reference Range Interpretation Comments WBC (test code = See_Comment [Automated 2431-2) message] The sy stem which generated this result transmitted reference range : 4.30 - 11.10 10*3/?L. The reference range was not used to interpret this result as normal/abnormal . RBC (test code = See_Comment [Automated 469-8) message] The sy stem which generated this result transmitted reference range : 3.93 - 5.25 10*6/?L. The reference range was not used to interpret this result as normal/abnormal . HGB (test code = 10.6 g/dL 11.6-15.0 L 718-7) HCT (test code = 33.0 % 35.7-45.2 L 4544-3) MCV (test code = 80.9 fL 80.6-95.5 787-2) MCH (test code = 26.0 pg 25.9-32.8 785-6) MCHC (test code = 32.1 g/dL 31.6-35.1 786-4) RDW-SD (test code = 44.9 fL 39.0-49.9 15002-1) RDW-CV (test code = 15.3 % 12.0-15.5 788-0) PLT (test code = See_Comment [Automated 777-3) message] The sy stem which generated this result transmitted reference range : 166 - 358 10*3/ ?L. The reference r amado was not used to interpret this result as normal/abnormal . MPV (test code = 9.0 fL 9.5-12.9 L 89285-1) NRBC/100 WBC (test See_Comment [Automat ed code = 8335822525) message] The system which generated this result transmitted reference range : 0.0 - 10.0 /100 WBCs. The refer ence range was not u sed to interpret th is result as normal/abnormal . NRBC x10^3 (test code <0.01 See_Comment [Auto mated = 2005164936) message] The s ystem which generated this result transmitted reference range : 10*3/?L. The reference range was not used to interpret this result as normal/abnormal . GRAN MAT (NEUT) % 63.7 % (test code = 770-8) IMM GRAN % (test code 0.40 % = 5727393387) LYMPH % (test code = 17.6 % 736-9) MONO % (test code = 13.9 % 5905-5) EOS % (test code = 3.6 % 713-8) BASO % (test code = 0.8 % 706-2) GRAN MAT x10^3(ANC) 3.22 10*3/uL 1.88-7.09 (test code = 9083453136) IMM GRAN x10^3 (test <0.03 0.00-0.06 code = 8667264445) LYMPH x10^3 (test code 0.89 10*3/uL 1.32-3.29 L = 731-0) MONO x10^3 (test code 0.70 10*3/uL 0.33-0.92 = 742-7) EOS x10^3 (test code = 0.18 10*3/uL 0.03-0.39 711-2) BASO x10^3 (test code 0.04 10*3/uL 0.01-0.07 = 704-7) Lab Interpretation Abnormal (test code = 05561-7) [facility] GLUCOSE (AUTOMATED)2021-11-24 03:12:10 Test Item Value Reference Range Interpretation Comments POCT GLU (test code = 0952216102) 183 mg/dL 70-110 H Lab Interpretation (test code = Abnormal 97156-6) [facility] GLUCOSE (AUTOMATED)2021-11-24 01:58:06 Test Item Value Reference Range Interpretation Comments POCT GLU (test code = 0899470175) 180 mg/dL 70-110 H Lab Interpretation (test code = Abnormal 29563-9) [facility] GLUCOSE (AUTOMATED)2021-11-23 23:24:42 Test Item Value Reference Range Interpretation Comments POCT GLU (test code = 3127759441) 205 mg/dL 70-110 H Lab Interpretation (test code = Abnormal 99418-5) [facility] GLUCOSE (AUTOMATED)2021-11-23 18:54:58 Test Item Value Reference Range Interpretation Comments POCT GLU (test code = 1514540693) 177 mg/dL 70-110 H Lab Interpretation (test code = Abnormal 37561-2) [facility] GLUCOSE (AUTOMATED)2021-11-23 14:09:44 Test Item Value Reference Range Interpretation Comments POCT GLU (test code = 6224512452) 145 mg/dL 70-110 H Lab Interpretation (test code = Abnormal 48461-5) [facility] METABOLIC PANEL (NA, K, CL, CO2, GLUCOSE, BUN, CREATININE, CA)2021-11-23 13:41:32 Test Item Value Reference Range Interpretation Comments NA (test code = 137 mmol/L 135-145 0794438033) K (test code = 4.3 mmol/L 3.5-5.0 6242584944) CL (test code = 106 mmol/L 98-108 2387580178) CO2 TOTAL (test code = 26 mmol/L 23-31 8869519026) AGAP (test code = 2-16 2452941919) BUN (test code = 25 mg/dL 7-23 H 1190684702) GLUCOSE (test code = 149 mg/dL 70-110 H 8713063081) CREATININE (test code = 1.00 mg/dL 0.50-1.04 9752968668) CALCIUM (test code = 8.9 mg/dL 8.6-10.6 4806654805) eGFR (test code = mL/min/1.73m2 4082905210) SHAHEED (test code = SHAEHED) Association of Glomerular Filtration Rate (GFR) and [...] tests). Lab Interpretation Abnormal (test code = 00707-8) [facility]21-[facility]-28 13:41:32 Test Item Value Reference Range Interpretation Comments MAGNESIUM (test code = 0569986469) 1.9 mg/dL 1.7-2.4 Lab Interpretation (test code = Normal 22997-0) [facility] WITH [id number] 12:15:45 Test Item Value Reference Range Interpretation Comments WBC (test code = See_Comment [Automated 6690-2) message] The sy stem which generated this result transmitted reference range : 4.30 - 11.10 10*3/?L. The reference range was not used to interpret this result as normal/abnormal . RBC (test code = See_Comment [Automated 789-8) message] The sy stem which generated this result transmitted reference range : 3.93 - 5.25 10*6/?L. The reference range was not used to interpret this result as normal/abnormal . HGB (test code = 11.1 g/dL 11.6-15.0 L 718-7) HCT (test code = 34.0 % 35.7-45.2 L 4544-3) MCV (test code = 81.3 fL 80.6-95.5 787-2) MCH (test code = 26.6 pg 25.9-32.8 785-6) MCHC (test code = 32.6 g/dL 31.6-35.1 786-4) RDW-SD (test code = 45.1 fL 39.0-49.9 49636-9) RDW-CV (test code = 15.3 % 12.0-15.5 788-0) PLT (test code = See_Comment [Automated 777-3) message] The sy stem which generated this result transmitted reference range : 166 - 358 10*3/ ?L. The reference r amado was not used to interpret this result as normal/abnormal . MPV (test code = 9.2 fL 9.5-12.9 L 72361-8) NRBC/100 WBC (test See_Comment [Automat ed code = 8718237902) message] The system which generated this result transmitted reference range : 0.0 - 10.0 /100 WBCs. The refer ence range was not u sed to interpret th is result as normal/abnormal . NRBC x10^3 (test code <0.01 See_Comment [Auto mated = 6000652175) message] The s ystem which generated this result transmitted reference range : 10*3/?L. The reference range was not used to interpret this result as normal/abnormal . GRAN MAT (NEUT) % 65.5 % (test code = 770-8) IMM GRAN % (test code 0.40 % = 4605131528) LYMPH % (test code = 18.2 % 736-9) MONO % (test code = 12.1 % 5905-5) EOS % (test code = 3.1 % 713-8) BASO % (test code = 0.7 % 706-2) GRAN MAT x10^3(ANC) 3.57 10*3/uL 1.88-7.09 (test code = 8077771555) IMM GRAN x10^3 (test <0.03 0.00-0.06 code = 7231681999) LYMPH x10^3 (test code 0.99 10*3/uL 1.32-3.29 L = 731-0) MONO x10^3 (test code 0.66 10*3/uL 0.33-0.92 = 742-7) EOS x10^3 (test code = 0.17 10*3/uL 0.03-0.39 711-2) BASO x10^3 (test code 0.04 10*3/uL 0.01-0.07 = 704-7) Lab Interpretation Abnormal (test code = 64687-2) [facility] GLUCOSE (AUTOMATED)2021-11-23 04:41:29 Test Item Value Reference Range Interpretation Comments POCT GLU (test code = 8588593767) 146 mg/dL 70-110 H Lab Interpretation (test code = Abnormal 06493-7) [facility] GLUCOSE (AUTOMATED)2021-11-22 23:52:47 Test Item Value Reference Range Interpretation Comments POCT GLU (test code = 2104413650) 140 mg/dL 70-110 H Lab Interpretation (test code = Abnormal 55061-4) [facility] GLUCOSE (AUTOMATED)2021-11-22 18:06:16 Test Item Value Reference Range Interpretation Comments POCT GLU (test code = 4903427366) 210 mg/dL 70-110 H Lab Interpretation (test code = Abnormal 45280-1) [facility] GLUCOSE (AUTOMATED)2021-11-22 14:35:22 Test Item Value Reference Range Interpretation Comments POCT GLU (test code = 9537823336) 192 mg/dL 70-110 H Lab Interpretation (test code = Abnormal 88343-4) [facility] 12:34:57 Test Item Value Reference Range Interpretation Comments MAGNESIUM (test code = 2539662231) 2.1 mg/dL 1.7-2.4 Lab Interpretation (test code = Normal 46837-4) [facility] (NA, K, CL, CO2, GLUCOSE, BUN, CREATININE, CA)2021-11-22 12:34:56 Test Item Value Reference Range Interpretation Comments NA (test code = 139 mmol/L 135-145 2937471083) K (test code = 3.9 mmol/L 3.5-5.0 6644196884) CL (test code = 107 mmol/L 98-108 1136808368) CO2 TOTAL (test code = 25 mmol/L 23-31 1226072205) AGAP (test code = 2-16 0790113726) BUN (test code = 17 mg/dL 7-23 2508701940) GLUCOSE (test code = 133 mg/dL 70-110 H 5996320960) CREATININE (test code = 0.79 mg/dL 0.50-1.04 3073336716) CALCIUM (test code = 8.8 mg/dL 8.6-10.6 0257190545) eGFR (test code = mL/min/1.73m2 1326041039) SHAHEED (test code = SHAHEED) Association of [...] tests). Lab Interpretation Abnormal (test code = 72468-3) [facility] WITH [id number] 12:07:34 Test Item Value Reference Range Interpretation Comments WBC (test code = See_Comment [Automated 5590-2) message] The sy stem which generated this result transmitted reference range : 4.30 - 11.10 10*3/?L. The reference range was not used to interpret this result as normal/abnormal . RBC (test code = See_Comment [Automated 529-8) message] The sy stem which generated this result transmitted reference range : 3.93 - 5.25 10*6/?L. The reference range was not used to interpret this result as normal/abnormal . HGB (test code = 11.5 g/dL 11.6-15.0 L 718-7) HCT (test code = 34.8 % 35.7-45.2 L 4544-3) MCV (test code = 80.2 fL 80.6-95.5 L 787-2) MCH (test code = 26.5 pg 25.9-32.8 785-6) MCHC (test code = 33.0 g/dL 31.6-35.1 786-4) RDW-SD (test code = 44.6 fL 39.0-49.9 48780-7) RDW-CV (test code = 15.4 % 12.0-15.5 788-0) PLT (test code = See_Comment [Automated 777-3) message] The sy stem which generated this result transmitted reference range : 166 - 358 10*3/ ?L. The reference r amado was not used to interpret this result as normal/abnormal . MPV (test code = 9.0 fL 9.5-12.9 L 67254-0) NRBC/100 WBC (test See_Comment [Automat ed code = 0585791700) message] The system which generated this result transmitted reference range : 0.0 - 10.0 /100 WBCs. The refer ence range was not u sed to interpret th is result as normal/abnormal . NRBC x10^3 (test code <0.01 See_Comment [Auto mated = 8757461398) message] The s ystem which generated this result transmitted reference range : 10*3/?L. The reference range was not used to interpret this result as normal/abnormal . GRAN MAT (NEUT) % 64.8 % (test code = 770-8) IMM GRAN % (test code 0.20 % = 6449172801) LYMPH % (test code = 18.2 % 736-9) MONO % (test code = 12.5 % 5905-5) EOS % (test code = 3.7 % 713-8) BASO % (test code = 0.6 % 706-2) GRAN MAT x10^3(ANC) 3.48 10*3/uL 1.88-7.09 (test code = 7262665703) IMM GRAN x10^3 (test <0.03 0.00-0.06 code = 2020691584) LYMPH x10^3 (test code 0.98 10*3/uL 1.32-3.29 L = 731-0) MONO x10^3 (test code 0.67 10*3/uL 0.33-0.92 = 742-7) EOS x10^3 (test code = 0.20 10*3/uL 0.03-0.39 711-2) BASO x10^3 (test code 0.03 10*3/uL 0.01-0.07 = 704-7) Lab Interpretation Abnormal (test code = 93502-7) [facility] 03:26:39 Test Item Value Reference Range Interpretation Comments POCT GLU (test code = 8361003411) 302 mg/dL 70-110 H Lab Interpretation (test code = Abnormal 87563-6) [facility] B12, [id number] 00:38:52 Test Item Value Reference Range Interpretation Comments VIT B12 (test code = 264 pg/mL 240-930 9906478556) SHAHEED (test code = SHAHEED) Biotin has been reported to cause a positive bias, interpret results relative to patient's use of biotin. Lab Interpretation (test Normal code = 09240-6) [facility]2021-11-22 00:36:21 Test Item Value Reference Range Interpretation Comments POCT GLU (test code = 1183015526) 128 mg/dL 70-110 H Lab Interpretation (test code = Abnormal 40257-1) [facility]2021-12-27 00:20:53 Test Item Value Reference Range Interpretation Comments T3 (test code = 1183088193) 133.0 ng/dL 97.0-170.0 Lab Interpretation (test code = Normal 66565-5) [facility] (NA, K, CL, CO2, GLUCOSE, BUN, CREATININE, CA)2021 23:48:33 Test Item Value Reference Range Interpretation Comments NA (test code = 136 mmol/L 135-145 1074316866) K (test code = 3.8 mmol/L 3.5-5.0 8531208495) CL (test code = 105 mmol/L 98-108 7383855978) CO2 TOTAL (test code = 24 mmol/L 23-31 0540955584) AGAP (test code = 2-16 1065250846) BUN (test code = 21 mg/dL 7-23 3910934755) GLUCOSE (test code = 155 mg/dL 70-110 H 7677859285) CREATININE (test code = 1.11 mg/dL 0.50-1.04 H 4149581206) CALCIUM (test code = 8.7 mg/dL 8.6-10.6 0744015426) eGFR (test code = mL/min/1.73m2 9903171828) SHAHEED (test code = SHAHEED) Association of [...] tests). Lab Interpretation Abnormal (test code = 51254-4) [facility]2021-12-26 23:48:33 Test Item Value Reference Range Interpretation Comments MAGNESIUM (test code = 7299229058) 2.0 mg/dL 1.7-2.4 Lab Interpretation (test code = Normal 12062-6) [facility]20[facility] 22:50:07 Test Item Value Reference Range Interpretation Comments APTT Patient (test code = See_Comment [ Automated message] 3173-2) The system [employer] h generated this result transmitted ref erence range: 26 - 36 Seconds. The re ference range was not u sed to interpret this result as normal/abnor mal. Lab Interpretation (test Normal code = 45754-6) [facility]enton[facility]thrombin Time / [id number] 22:50:07 Test Item Value Reference Range Interpretation Comments PROTIME PATIENT (test See_Comment [Auto mated message] code = 5964-2) The system [employer] generated this result transmitted ref erence range: 10.1 - 1 2.6 Seconds. The re ference range was not u sed to interpret this result as normal/abnor mal. INR (test code = 6301-6) Nor mal INR <1.1; Warfarin Therap eutic range 2.0 to 3. 0 or 2.5 to 3.5, dep ending upon the indica tions. Lab Interpretation (test Normal code = 27329-0) [facility] WITH [id number] 22:48:31 Test Item Value Reference Range Interpretation Comments WBC (test code = See_Comment [Automated 9890-2) message] The sy stem which generated this result transmitted reference range : 4.30 - 11.10 10*3/?L. The reference range was not used to interpret this result as normal/abnormal . RBC (test code = See_Comment [Automated 789-8) message] The sy stem which generated this result transmitted reference range : 3.93 - 5.25 10*6/?L. The reference range was not used to interpret this result as normal/abnormal . HGB (test code = 11.0 g/dL 11.6-15.0 L 718-7) HCT (test code = 33.3 % 35.7-45.2 L 4544-3) MCV (test code = 81.0 fL 80.6-95.5 787-2) MCH (test code = 26.8 pg 25.9-32.8 785-6) MCHC (test code = 33.0 g/dL 31.6-35.1 786-4) RDW-SD (test code = 45.6 fL 39.0-49.9 70392-5) RDW-CV (test code = 15.6 % 12.0-15.5 H 788-0) PLT (test code = See_Comment [Automated 777-3) message] The sy stem which generated this result transmitted reference range : 166 - 358 10*3/ ?L. The reference r amado was not used to interpret this result as normal/abnormal . MPV (test code = 9.2 fL 9.5-12.9 L 92612-1) NRBC/100 WBC (test See_Comment [Automat ed code = 4932932807) message] The system which generated this result transmitted reference range : 0.0 - 10.0 /100 WBCs. The refer ence range was not u sed to interpret th is result as normal/abnormal . NRBC x10^3 (test code <0.01 See_Comment [Auto mated = 5351456510) message] The s ystem which generated this result transmitted reference range : 10*3/?L. The reference range was not used to interpret this result as normal/abnormal . GRAN MAT (NEUT) % 67.1 % (test code = 770-8) IMM GRAN % (test code 0.40 % = 5252326694) LYMPH % (test code = 16.8 % 736-9) MONO % (test code = 12.3 % 5905-5) EOS % (test code = 2.9 % 713-8) BASO % (test code = 0.5 % 706-2) GRAN MAT x10^3(ANC) 3.71 10*3/uL 1.88-7.09 (test code = [id number]) IMM GRAN x10^3 (test <0.03 0.00-0.06 code = [id number]) LYMPH x10^3 (test code 0.93 10*3/uL 1.32-3.29 L = 731-0) MONO x10^3 (test code 0.68 10*3/uL 0.33-0.92 = 742-7) EOS x10^3 (test code = 0.16 10*3/uL 0.03-0.39 711-2) BASO x10^3 (test code 0.03 10*3/uL 0.01-0.07 = 704-7) Lab Interpretation Abnormal (test code = 86011-2) [facility] 15:56:41 Test Item Value Reference Range Interpretation Comments POCT GLU (test code = 7816434336) 162 mg/dL 70-110 H Lab Interpretation (test code = Abnormal 61773-7) [facility] [id number] 15:32:05 Test Item Value Reference Range Interpretation Comments TSH (test code = See_Comment [Automated message] 2464022140) The system [employer] h generated this result transmitted ref erence range: 0.45 - 4 .70 mIU/L. The refe rence range was not u sed to interpret this result as normal/abnor mal. Lab Interpretation (test Normal code = 79367-3) [facility] [id number] 15:18:03 Test Item Value Reference Range Interpretation Comments FREE T4 (test code = See_Comment [Autom ated message] 1510813688) The system [employer] generated this result transmitted ref erence range: 0.78 - 2 .20 ng/dL:. The ref erence range was not u sed to interpret this result as normal/abnor mal. Lab Interpretation (test Normal code = 95859-6) [facility] [id number] 15:00:44 Test Item Value Reference Range Interpretation Comments MAGNESIUM (test code = 2553207841) 2.1 mg/dL 1.7-2.4 Lab Interpretation (test code = Normal 61547-7) [facility]. METABOLIC PANEL (57552)2021 05:47:50 Test Item Value Reference Range Interpretation Comments NA (test code = 136 mmol/L 135-145 9844245547) K (test code = 4.1 mmol/L 3.5-5.0 1547970090) CL (test code = 104 mmol/L 98-108 8366011578) CO2 TOTAL (test code = 24 mmol/L 23-31 2625126779) AGAP (test code = 2-16 6428809143) BUN (test code = 27 mg/dL 7-23 H 2927817889) GLUCOSE (test code = 128 mg/dL 70-110 H 2091504736) CREATININE (test code = 1.24 mg/dL 0.50-1.04 H 3537998748) TOTAL BILI (test code = 0.5 mg/dL 0.1-1.2 6495577866) CALCIUM (test code = 8.8 mg/dL 8.6-10.6 3674622865) T PROTEIN (test code = 6.7 g/dL 6.3-8.2 0972050257) ALBUMIN (test code = 4.1 g/dL 3.5-5.0 5762905824) ALK PHOS (test code = 77 U/L 34-122 6462293393) ALTv (test code = 25 U/L 5-35 1742-6) AST(SGOT) (test code = 27 U/L 13-40 7173930626) eGFR (test code = mL/min/1.73m2 5020091580) SHAHEED (test code = SHAHEED) Association of [...] tests). Lab Interpretation Abnormal (test code = 14539-1) [facility] WITH [id number] 05:32:49 Test Item Value Reference Range Interpretation Comments WBC (test code = See_Comment [Automated 8080-2) message] The sy stem which generated this result transmitted reference range : 4.30 - 11.10 10*3/?L. The reference range was not used to interpret this result as normal/abnormal . RBC (test code = See_Comment [Automated 544-8) message] The sy stem which generated this result transmitted reference range : 3.93 - 5.25 10*6/?L. The reference range was not used to interpret this result as normal/abnormal . HGB (test code = 11.8 g/dL 11.6-15.0 718-7) HCT (test code = 36.6 % 35.7-45.2 4544-3) MCV (test code = 82.4 fL 80.6-95.5 787-2) MCH (test code = 26.6 pg 25.9-32.8 785-6) MCHC (test code = 32.2 g/dL 31.6-35.1 786-4) RDW-SD (test code = 46.6 fL 39.0-49.9 07068-8) RDW-CV (test code = 15.5 % 12.0-15.5 788-0) PLT (test code = See_Comment [Automated 777-3) message] The sy stem which generated this result transmitted reference range : 166 - 358 10*3/ ?L. The reference r amado was not used to interpret this result as normal/abnormal . MPV (test code = 9.1 fL 9.5-12.9 L 80313-9) NRBC/100 WBC (test See_Comment [Automat ed code = 2791922611) message] The system which generated this result transmitted reference range : 0.0 - 10.0 /100 WBCs. The refer ence range was not u sed to interpret th is result as normal/abnormal . NRBC x10^3 (test code <0.01 See_Comment [Auto mated = 7546945142) message] The s ystem which generated this result transmitted reference range : 10*3/?L. The reference range was not used to interpret this result as normal/abnormal . GRAN MAT (NEUT) % 65.3 % (test code = 770-8) IMM GRAN % (test code 0.50 % = 1030002345) LYMPH % (test code = 17.7 % 736-9) MONO % (test code = 13.4 % 5905-5) EOS % (test code = 2.3 % 713-8) BASO % (test code = 0.8 % 706-2) GRAN MAT x10^3(ANC) 4.26 10*3/uL 1.88-7.09 (test code = 2689555351) IMM GRAN x10^3 (test 0.03 10*3/uL 0.00-0.06 code = 3060061842) LYMPH x10^3 (test code 1.15 10*3/uL 1.32-3.29 L = 731-0) MONO x10^3 (test code 0.87 10*3/uL 0.33-0.92 = 742-7) EOS x10^3 (test code = 0.15 10*3/uL 0.03-0.39 711-2) BASO x10^3 (test code 0.05 10*3/uL 0.01-0.07 = 704-7) Lab Interpretation Abnormal (test code = 62876-8) [facility] METABOLIC PANEL (NA, K, CL, CO2, GLUCOSE, BUN, CREATININE, CA)2020-02-18 20:16:00 Test Item Value Reference Range Interpretation Comments NA (test code = 137 mmol/L 135-145 6686591394) K (test code = 3.3 mmol/L 3.5-5 L 9534056346) CL (test code = 100 mmol/L 98-108 8964210160) CO2 TOTAL (test code = 27 mmol/L 23-31 6353835569) AGAP (test code = 2-16 4666900310) BUN (test code = 17 mg/dL 7-23 7633940676) GLUCOSE (test code = 103 mg/dL 70-110 2442206121) CREATININE (test code = 0.92 mg/dL 0.5-1.04 0628258634) CALCIUM (test code = 9.5 mg/dL 8.6-10.6 2333880223) eGFR Calculation mL/min/1.73m2 (Non-) (test code = 7784105807) eGFR Calculation mL/min/1.73m2 () (test code = 9243036715) SHAHEED (test code = SHAHEED) Association of [...] tests). Lab Interpretation Abnormal (test code = 12683-4) [facility] 18:41:00 Test Item Value Reference Range Interpretation Comments APPEARANCE (test code = Hazy Clear A 9349825325) COLOR (test code = Yellow Yellow 3484533762) PH (test code = 4.8-8.0 9147427856) SP GRAVITY (test code = 1.003-1.030 7796947895) GLU U QUAL (test code = Normal Normal 9836512595) BLOOD (test code = Negative Negative 2065054138) KETONES (test code = Negative Negative 3077283989) PROTEIN (test code = Negative Negative 2887-8) UROBILIN (test code = Normal Normal 0211605523) BILIRUBIN (test code = Negative Negative 9012486246) NITRITE (test code = Negative Negative 0216495732) LEUK CHRISTOPHER (test code = 75/uL Negative A 7429217499) RBC/HPF (test code = See_Comment [Autom ated message] 4917618815) The system [employer] generated this result transmitted ref erence range: 0 - 3 HP F. The reference range was not used to int erpret this result as normal/abnormal . WBC/HPF (test code = See_Comment H [Autom ated message] 6788840908) The system [employer] generated this result transmitted ref erence range: 0 - 5 HP F. The reference range was not used to int erpret this result as normal/abnormal . BACTERIA (test code = Many Negative A 0312830193) SQ EPITH (test code = HPF 6051132122) HYAL CAST (test code = See_Comment H [Aut omated message] 9281050101) The system [employer] generated this result transmitted ref erence range: <=2 LPF. The reference range was not used to int erpret this result as normal/abnormal . Lab Interpretation (test Abnormal code = 73209-7) [facility]2020-[facility] 18:12:00 Test Item Value Reference Range Interpretation Comments MAGNESIUM (test code = 8981956427) 1.8 mg/dL 1.7-2.4 Lab Interpretation (test code = Normal 48114-3) [facility]TROPON[facility] [id number] 17:39:00 Test Item Value Reference Range Interpretation Comments TROPONIN I (test 0.018 ng/mL See_Comment [Automated code = 1143605516) message] The system which generated this result [...] ? Lab Interpretation Normal (test code = 14937-4) [facility]MINAL [id number] 17:35:00 Test Item Value Reference Range Interpretation Comments NT-proBNP (test code 126 pg/mL See_Comment [Autom ated = 9940794626) message] The system which generated this result transmitted reference range : <=450. The reference range was not used to interpret this result as normal/abnormal . SHAHEED (test code = SHAHEED) Biotin has been reported to cause a negative bias, interpret results relative to patient's use of biotin. Lab Interpretation Normal (test code = 53070-3) [facility],CLC OR [facility] - INFLUENZA A & B DIRECT [id number] 17:33:00 Test Item Value Reference Range Interpretation Comments Influenza A (test code = 26832-0) Negative Negative Influenza B (test code = 16604-3) Negative Negative Lab Interpretation (test code = Normal 74443-5) [facility] METABOLIC PANEL (56303)2020-02-18 17:28:00 Test Item Value Reference Range Interpretation Comments NA (test code = 135 mmol/L 135-145 3846193635) K (test code = 2.7 mmol/L 3.5-5 LL 5102326257) CL (test code = 99 mmol/L 98-108 9034919960) CO2 TOTAL (test code = 24 mmol/L 23-31 1334022618) AGAP (test code = 2-16 0160021511) BUN (test code = 18 mg/dL 7-23 4632494056) GLUCOSE (test code = 211 mg/dL 70-110 H 0779359696) CREATININE (test code = 0.99 mg/dL 0.5-1.04 3773314946) TOTAL BILI (test code = 0.6 mg/dL 0.1-1.8 0381956979) CALCIUM (test code = 9.5 mg/dL 8.6-10.6 0984055311) T PROTEIN (test code = 7.9 g/dL 6.3-8.2 7648464402) ALBUMIN (test code = 4.7 g/dL 3.5-5 2537707091) ALK PHOS (test code = 72 U/L 34-122 2433263181) ALTv (test code = 16 U/L 5-35 1742-6) AST(SGOT) (test code = 24 U/L 13-40 1272639104) eGFR Calculation mL/min/1.73m2 (Non-) (test code = 0292337619) eGFR Calculation mL/min/1.73m2 () (test code = 6078584956) SHAHEED (test code = SHAHEED) Association of [...] tests). Lab Interpretation Abnormal (test code = 04332-5) [facility] WITH [id number] 17:16:00 Test Item Value Reference Range Interpretation Comments WBC (test code = See_Comment H [Automated 6690-2) message] The sy stem which generated this result transmitted reference range : 4.30 - 11.10 10*3/?L. The reference range was not used to interpret this result as normal/abnormal . RBC (test code = See_Comment [Automated 789-8) message] The sy stem which generated this [...] (test code = 37.9 fL 39-49.9 L 85676-8) RDW-CV (test code = 13.1 % 12-15.5 788-0) PLT (test code = See_Comment [Automated 777-3) message] The sy stem which generated this result transmitted reference range : 166 - 358 10*3/ ?L. The reference r amado was not used to interpret this result as normal/abnormal . MPV (test code = 9.2 fL 9.5-12.9 L 05582-8) NRBC/100 WBC (test See_Comment [Automat ed code = 6706132703) message] The system which generated this result transmitted reference range : 0.0 - 10.0 /100 WBCs. The refer ence range was not u sed to interpret th is result as normal/abnormal . NRBC x10^3 (test code <0.01 See_Comment [Auto mated = 2572140799) message] The s ystem which generated this result transmitted reference range : 10*3/?L. The reference range was not used to interpret this result as normal/abnormal . GRAN MAT (NEUT) % 76.2 % (test code = 770-8) IMM GRAN % (test code 0.60 % = 8545544752) LYMPH % (test code = 12.0 % 736-9) MONO % (test code = 8.0 % 5905-5) EOS % (test code = 2.5 % 713-8) BASO % (test code = 0.7 % 706-2) GRAN MAT x10^3(ANC) 9.29 10*3/uL 1.88-7.09 H (test code = 8135307944) IMM GRAN x10^3 (test 0.07 10*3/uL 0-0.06 H code = 5841904760) LYMPH x10^3 (test code 1.46 10*3/uL 1.32-3.29 = 731-0) MONO x10^3 (test code 0.98 10*3/uL 0.33-0.92 H = 742-7) EOS x10^3 (test code = 0.31 10*3/uL 0.03-0.39 711-2) BASO x10^3 (test code 0.09 10*3/uL 0.01-0.07 H = 704-7) Lab Interpretation Abnormal (test code = 90955-8) [facility] [id number] 17:10:29HISTORY: Cough. TECHNIQUE: Portable AP erect view of the chest is obtained. FINDINGS: No acute pneumonia. No pneumothorax or pleural effusion orpulmonary congestion detected. Cardiac size is within normal limits. Mildelevation of the right hemidiaphragm, thoracic dextroscoliosis withdegenerative spondylosis and calcified granuloma in the left lower lungnoted. CONCLUSIONS: No signs of acute cardiopulmonary disease.[facility], Radiant Results Inft User - 02/18/2020 12:11 PM CDTHISTORY: Cough.TECHNIQUE: Portable AP erect view of the chest is obtained.FINDINGS: No acute pneumonia. No pneumothorax or pleural effusion orpulmonary congestion detected. Cardiac size is within normal limits. Mildelevation of the right hemidiaphragm, thoracic dextroscoliosis withdegenerative spondylosis and calcified granuloma inthe left lower lungnoted.CONCLUSIONS: No signs of acute cardiopulmonary disease.[facility]"
--- NOTE | 2022-01-10 11:07 | RAD REPORT ---
EXAM DESCRIPTION: CT - CTHCSPWOC - 01/10/2022 10:51 am CLINICAL HISTORY: Trauma, head and neck injury. fall, doesn't recall what happened COMPARISON: Head C Spine Mpr Wo Con dated 11/20/2021; Neck Angio dated 10/20/2021; Head C Spine Mpr Wo Con dated 03/26/2020 TECHNIQUE: Axial 5 mm thick images of the head were obtained. Axial 2 mm thick images of the cervical spine were obtained with sagittal and coronal reconstruction images generated and reviewed. All CT scans are performed using dose optimization technique as appropriate and may include automated exposure control or mA/KV adjustment according to patient size. FINDINGS: CT HEAD WITHOUT CONTRAST: No acute hemorrhage, hydrocephalus or extra-axial collection is identified.No areas of brain edema or midline shift. Remote left basal ganglia lacunar infarct. The paranasal sinuses and mastoids are clear.The calvarium is intact. CT CERVICAL SPINE WITHOUT CONTRAST: No fracture or traumatic subluxation.Trace retrolisthesis of C5 on C6 which is favored chronic.No pre vertebral soft tissues swelling is identified. Loss of the normal cervical lordosis. Multilevel cervi malcolm spondylosis is present. This is most pronounced at the C5-6 level were there is moderate bilatera l neural foraminal narrowing. IMPRESSION: No acute intracranial or cervical spine findings.
--- NOTE | 2022-01-10 11:26 | RAD REPORT ---
EXAM DESCRIPTION: RAD - Pelvis - 01/10/2022 11:12 am CLINICAL HISTORY: BLUNT TRAUMA COMPARISON: Pelvis Wo Cont dated 10/19/2021 FINDINGS: No acute fracture. No malalignment. Mild bilateral acetabular degenerative changes. Degene rative changes are present in the lower spine. IMPRESSION: No acute osseous abnormality involving the pelvis.
--- NOTE | 2022-01-10 11:29 | RAD REPORT ---
EXAM DESCRIPTION: RAD - Knee Left 3 View - 01/10/2022 11:12 am CLINICAL HISTORY: PAIN COMPARISON: Knee Left 3 View dated 10/19/2021; Head C Spine Mpr Wo Con dated 01/10/2022 FINDINGS: No acute fracture. No malalignment. No significant focal degenerative changes. Left total knee arthroplasty. Curvilinear lucency in the distal femoral diaphysis is unchanged since 10/19/2021. This is unlikely to represent a fracture. IMPRESSION: No acute osseous abnormality involving the left knee.
--- NOTE | 2022-01-10 11:29 | RAD REPORT ---
EXAM DESCRIPTION: RAD - Shoulder Right 2 View - 01/10/2022 11:12 am CLINICAL HISTORY: PAIN COMPARISON: No comparisons FINDINGS/IMPRESSION: No acute fracture. No malalignment. Mild right AC joint and glenohumeral joint degenerative changes.
--- NOTE | 2022-01-10 12:44 | EDPHYS ---
Physician Documentation [facility] Name: Kyung Bonilla Age: 86 yrs Sex: Female : 1935 Arrival Date: 01/10/2022 Time: 10:24 Bed 26 Private MD: ED Physician Jone Wise HPI: 01/10 11:34 This 86 yrs old Female presents to ER via EMS with complaints of fall. rn 11:34 Details of fall: The patient fell from an upright position, while standing. Onset: The rn symptoms/episode began/occurred just prior to arrival. Associated injuries: The patient sustained Right shoulder, left leg. Severity of symptoms: At their worst the symptoms were very mild, in the emergency department the symptoms are unchanged. It is unknown whether or not the patient has had similar symptoms in the past. The patient has not recently seen a physician. Patient reports here for fall. Does not recall events. Was unwitnessed. Does not take blood thinners. Reports pain to left leg, mainly the knee, as well as right shoulder.. Historical: - Home Meds: 11:14 amlodipine 5 mg tab 1 tab once daily [Active]; clopidogrel 75 mg Oral tab 1 tab once ss7 daily [Active]; levothyroxine 50 mcg cap 1 cap once daily [Active]; metformin 500 mg Oral tab 1 tab once daily [Active]; Nifedipine ER Oral 60 mg [Active]; sertraline 100 mg Oral tab 1 tab once daily [Active]; - PMHx: 11:14 Dementia; Hypertension; Hypothyroidism; TIA; 2019; ss7 - Immunization history:: Adult Immunizations unknown, Client reports receiving the 2nd dose of the Covid vaccine, Client reports receiving the 1st dose of the Covid vaccine, Pneumococcal vaccine is up to date, Flu vaccine is up to date. - Social history:: Smoking status: Patient denies any tobacco usage or history of. - Family history:: not pertinent. - Code Status:: CPR but no machines per son Pipe Garcia. - Hospitalizations: : No recent hospitalization is reported. - History obtained from: son. ROS: 11:34 Constitutional: Negative for fever, chills, and weight loss, Eyes: Negative for injury, rn pain, redness, and discharge, Neck: Negative for injury, pain, and swelling, Cardiovascular: Negative for chest pain, palpitations, and edema, Respiratory: Negative for shortness of breath, cough, wheezing, and pleuritic chest pain, Abdomen/GI: Negative for abdominal pain, nausea, vomiting, diarrhea, and constipation, Back: Negative for injury and pain, : Negative for injury, bleeding, discharge, and swelling, MS/Extremity: Positive for left leg pain and right shoulder pain Skin: Negative for injury, rash, and discoloration, Neuro: Negative for headache, weakness, numbness, tingling, and seizure. Exam: 11:34 Constitutional: This is a well developed, well nourished patient who is awake, alert, rn and in no acute distress. Head/Face: Normocephalic, atraumatic. Eyes: Periorbital areas with no swelling, redness, or edema. Neck: No midline cervical tenderness, in c-collar Chest/axilla: Normal chest wall appearance and motion. Nontender with no deformity. No lesions are appreciated. Cardiovascular: Regular rate and rhythm . No pulse deficits. Respiratory: No increased work of breathing, no retractions or nasal flaring. Abdomen/GI: Soft, non-tender Back: No spinal tenderness. No costovertebral tenderness. Full range of motion. MS/ Extremity: .Pulses equal, no cyanosis. Mild pain with range of motion of the left knee and hip mild pain with range of motion of the right shoulder. No gross deformities noted. No open wounds. Neuro: Awake and alert, GCS 15, moves all 4 extremities with equal strength Vital Signs: 11:11 BP 159 / 70; Pulse 78; Resp 20; Temp 97.9; ss7 12:38 BP 166 / 89; Pulse 78; Resp 20; Pulse Ox 96% ; ss7 13:36 BP 137 / 73; Pulse 79; Resp 16; Pulse Ox 96% ; ss7 MDM: 10:27 Patient medically screened. rn 12:42 Differential diagnosis: closed head injury, contusion, fracture, sprain, strain. Data rn reviewed: vital signs, nurses notes, radiologic studies, CT scan, plain films, and as a result, I will discharge patient. Counseling: I had a detailed discussion with the patient and/or guardian regarding: the historical points, exam findings, and any diagnostic results supporting the discharge/admit diagnosis, lab results, radiology results, the need for outpatient follow up, to return to the emergency department if symptoms worsen or persist or if there are any questions or concerns that arise at home. Response to treatment: the patient's symptoms have mildly improved after treatment, and as a result, I will discharge patient. Special discussion: I discussed with the patient/guardian in detail that at this point there is no indication for admission to the hospital. It is understood, however, that if the symptoms persist or worsen the patient needs to return immediately for re-evaluation. 01/10 10:32 Order name: CT Head C Spine; Complete Time: 12:41 rn 01/10 10:32 Order name: XRAY Shoulder RIGHT 2 view; Complete Time: 12:41 rn 01/10 10:32 Order name: XRAY Pelvis; Complete Time: 12:41 rn 01/10 10:32 Order name: XRAY Hip LEFT 2 view rn 01/10 10:32 Order name: XRAY Knee LEFT 3 view; Complete Time: 12:41 rn Administered Medications: No medications were administered Disposition Summary: 01/10/22 12:43 Discharge Ordered Location: Home rn Problem: new rn Symptoms: have improved rn Condition: Stable rn Diagnosis - Fall on same level, unspecified rn - Contusion of left knee rn - Strain of muscle(s) and tendon(s) of the rotator cuff of right shoulder rn Followup: rn - With: Private Physician - When: As needed - Reason: Recheck today's complaints, Re-evaluation by your physician Discharge Instructions: - Discharge Summary Sheet rn - Contusion rn - Fall Prevention in the Home, Adult rn Forms: - Medication Reconciliation Form rn - Thank You Letter rn - Antibiotic rn documentation - Prescription Opioid Use rn Signatures: Dispatcher [employer] Jone Gomez MD MD rn Smith, Shana, RN RN ss7
--- NOTE | 2022-01-10 12:44 | ER ---
Nurse's Notes [facility] Name: Kyung Bonilla Age: 86 yrs Sex: Female : 1935 Arrival Date: 01/10/2022 Time: 10:24 Bed 26 Private MD: Diagnosis: Fall on same level, unspecified;Contusion of left knee;Strain of muscle(s) and tendon(s) of the rotator cuff of right shoulder Presentation: 01/10 11:11 Chief complaint: Patient states: 86yo wf presents with unwitnessed fall per systems protection technician. ss7 Pt c/o left hip and right shoulder pain. Unsure of LOC. PMH of dementia, CVAx2, htn, dm, bilateral knee replacements. Coronavirus screen: Pt poor historian. Unknown. Ebola Screen: No symptoms or risks identified at this time. Initial Sepsis Screen: Does the patient meet any 2 criteria? No. Patient's initial sepsis screen is negative. Does the patient have a suspected source of infection? No. Patient's initial sepsis screen is negative. Risk Assessment: Do you want to hurt yourself or someone else? Patient reports no desire to harm self or others. 11:11 Method Of Arrival: EMS ss7 11:11 Acuity: LEONARDO 2 ss7 12:39 Onset of symptoms is unknown. ss7 Triage Assessment: 11:17 General: Appears in no apparent distress. uncomfortable, Behavior is calm, cooperative, ss7 appropriate for age. Pain: Complains of pain in pelvis. EENT: Eyes unequal pupil dilation. R>L; + PERRL. Neuro: No deficits noted. Cardiovascular: No deficits noted. Respiratory: No deficits noted. GI: No deficits noted. Musculoskeletal: Reports pain in left hip and right shoulder Also noted hematoma to left skull. Historical: - Home Meds: 11:14 amlodipine 5 mg tab 1 tab once daily [Active]; clopidogrel 75 mg Oral tab 1 tab once ss7 daily [Active]; levothyroxine 50 mcg cap 1 cap once daily [Active]; metformin 500 mg Oral tab 1 tab once daily [Active]; Nifedipine ER Oral 60 mg [Active]; sertraline 100 mg Oral tab 1 tab once daily [Active]; - PMHx: 11:14 Dementia; Hypertension; Hypothyroidism; TIA; 2019; ss7 - Immunization history:: Adult Immunizations unknown, Client reports receiving the 2nd dose of the Covid vaccine, Client reports receiving the 1st dose of the Covid vaccine, Pneumococcal vaccine is up to date, Flu vaccine is up to date. - Social history:: Smoking status: Patient denies any tobacco usage or history of. - Family history:: not pertinent. - Code Status:: CPR but no machines per son Pipe Garcia. - Hospitalizations: : No recent hospitalization is reported. - History obtained from: son. Screenin:38 Abuse screen: Denies threats or abuse. Nutritional screening: No deficits noted. ss7 Tuberculosis screening: No symptoms or risk factors identified. Fall Risk Fall in past 12 months (25 points). No IV (0 pts). Mental Status- Oriented to own ability (0 pts). Assessment: 11:30 General: see triage. ss7 Vital Signs: 11:11 BP 159 / 70; Pulse 78; Resp 20; Temp 97.9; ss7 12:38 BP 166 / 89; Pulse 78; Resp 20; Pulse Ox 96% ; ss7 13:36 BP 137 / 73; Pulse 79; Resp 16; Pulse Ox 96% ; ss7 ED Course: 10:24 Patient arrived in ED. iw 10:27 Jone Wise MD is Attending Physician. rn 10:51 CT Head C Spine In Process Unspecified. EDMS 11:12 XRAY Shoulder RIGHT 2 view In Process Unspecified. EDMS 11:12 XRAY Pelvis In Process Unspecified. EDMS 11:12 XRAY Hip LEFT 2 view In Process Unspecified. EDMS 11:12 XRAY Knee LEFT 3 view In Process Unspecified. EDMS 11:14 Triage completed. ss7 11:30 Patient patient incontinent. cleaned and diaper changed. ss7 12:38 Patient has correct armband on for positive identification. Bed in low position. Call 7 light in reach. Side rails up X2. Adult w/ patient. Warm blanket given. 12:38 No provider procedures requiring assistance completed. ss7 13:37 Pt and son given dc instructions and vu. Pt wheeled to discharge with all [facility] belongings in NAD>. Administered Medications: No medications were administered Outcome: 12:39 Condition: stable ss7 12:43 Discharge ordered by MD. rn 13:37 Discharged to home ss7 13:37 Discharge instructions given to patient, family. 13:40 Patient left the ED. ss7 Signatures: Dispatcher [employer] Brittney Gomez RN RN iw Nieto, Roman, MD MD rn Smith, Shana, RN RN ss7
[2022-01-10 14:30] VITALS: TEMP 97.9
[2022-01-10 14:31] VITALS: O2SAT 96
[2022-01-10 14:36] VITALS: BP 137/73
--- NOTE | 2022-01-11 11:12 | RAD REPORT ---
EXAM DESCRIPTION: RAD - Hip Left 2 View - 01/10/2022 11:12 am CLINICAL HISTORY: PAIN COMPARISON: No comparisons FINDINGS: No acute fracture. No dislocation. Mild left acetabular degenerative changes. IMPRESSION: No acute osseous abnormality involving the left hip.
== END 2022-01-10 13:40 | disposition home or self-care (01) ==
LOC: ER 10:18
DX: S46.011A Strain of muscle(s) and tendon(s) of the rotator cuff of right shoulder, initial encounter (principal); W18.30XA Fall on same level, unspecified, initial encounter; E03.9 Hypothyroidism, unspecified; F03.90 Unspecified dementia, unspecified severity, without behavioral disturbance, psychotic disturbance, mood disturbance, and anxiety; I10 Essential (primary) hypertension
CPT/HCPCS: 70450; 72125; 72170; 99283

== ENCOUNTER 2022-05-31 11:33 | Inpatient (IN) | payer OTHER ==
--- NOTE | 2022-05-31 12:10 | RAD REPORT ---
EXAM DESCRIPTION: CT - CTHCSPWOC - 05/31/2022 11:51 am CLINICAL HISTORY: Fall COMPARISON: Head C Spine Mpr Wo Con dated 01/10/2022 TECHNIQUE: Axial 5 mm thick images of the head were obtained. Axial 2 mm thick images of the cervic al spine were obtained with sagittal and coronal reconstruction images generated and reviewed. All CT scans are performed using dose optimization technique as appropriate and may include automated exposure control or mA/KV adjustment according to patient size. FINDINGS: No intracranial hemorrhage, mass, edema or acute intracranial finding. No acute cortical b ased infarction. No cortical edema or sulcal effacement. Atrophy changes are mild to moderate for age . Ventricles are in proportion to the amount of volume loss. Moderate chronic ischemic changes throug hout the cerebral white matter. No extra-axial fluid collections. Mastoid air cells and paranasal sin uses are clear. No globe or orbit abnormality seen. Dense arterial tree calcifications are present. I ntracranial findings are similar to the December study. Cervical bodies are normal in height. Slight retrolisthesis of C5 on C6 noted with C5-6 significant d isc space narrowing and endplate spurring. No other disc space narrowing. No fracture or acute bony a bnormality. No acute or pathologic bone process. Facet joint degenerative changes are present. Mild t o moderate foraminal stenosis changes are seen at C5-6. Central canal detail is inherently limited. No paraspinal mass or hematoma. IMPRESSION: No hemorrhage, edema or acute intracranial finding. CT head findings are similar to Febr study. Cervical spine degenerative change as detailed. This is similar to comparison with no acute findings seen.
[2022-05-31 12:16] LABS: Absolute Lymphocytes (CBC) 0.8 K/uL (0.7-4.9); Hematocrit 32.2 % (36.0-45.0); Lymphocytes % 20.6 % (15.3-44.8); MCV 68.9 fL (80-100); MPV 7.7 fL (7.6-11.3); RBC Red Blood Cell Count 4.68 M/uL (3.86-4.86)
[2022-05-31 12:31] LABS: Potassium 3.2 mmol/L (3.5-5.1)
--- NOTE | 2022-05-31 12:42 | RAD REPORT ---
EXAM DESCRIPTION: RAD - Chest Single View - 05/31/2022 11:47 am CLINICAL HISTORY: COUGH Chest pain. COMPARISON: Chest Single View dated 10/20/2021; Chest Single View dated 10/19/2021; Chest Single Vie w dated 03/26/2020 FINDINGS: Portable technique limits examination quality. The lungs are underinflated resulting in vascular crowding. The heart is normal in size. No displaced fractures. IMPRESSION: Underinflated lungs without acute process delineated.
[2022-05-31 13:05] LABS: Blood Morphology Comment NOTED (NOT SEEN); White Blood Cell Scan OK (OK)
[2022-05-31 13:06] LABS: Anisocytosis 1+; Platelet Estimate ADEQ
--- NOTE | 2022-05-31 14:12 | ER ---
Nurse's Notes [facility] Name: Kyung Bonilla Age: 86 yrs Sex: Female : 1935 Arrival Date: 05/31/2022 Time: 11:34 Bed 8 Private MD: Diagnosis: syncope;Generalized weakness;Fall Presentation: 05/31 11:34 Chief complaint: EMS states: SON CALLED BECAUSE PT FELL IN SHOWER, PT DID NOT WANT TO bp COME TO HOSPITAL, BUT SON INSISTED. Coronavirus screen: Client reports previous positive COVID test result. Ebola Screen: No symptoms or risks identified at this time. Initial Sepsis Screen: Does the patient meet any 2 criteria? No. Patient's initial sepsis screen is negative. Does the patient have a suspected source of infection? No. Patient's initial sepsis screen is negative. Risk Assessment: Do you want to hurt yourself or someone else? Patient reports no desire to harm self or others. Onset of symptoms is unknown. Care prior to arrival: Glucose check: 139. 11:34 Method Of Arrival: EMS: [facility] bp 11:34 Acuity: LEONARDO 3 bp 11:34 Mechanism of Injury: Fall from standing position. Trauma event details: Injury occurred jl7 in the [facility], Injury occurred: at home. Injury occurred: May 31, 2022 Injury occurred at: 10:45. 19:01 Care prior to arrival: None. [facility] Triage Assessment: 11:38 General: Appears in no apparent distress. comfortable, Behavior is calm, cooperative. bp Pain: Denies pain. EENT: No deficits noted. Neuro: Level of Consciousness is awake, alert, obeys commands, confused, Oriented to person, place, situation. Cardiovascular: Rhythm is sinus bradycardia. Respiratory: Reports cough that is. GI: No signs and/or symptoms were reported involving the gastrointestinal system. : No signs and/or symptoms were reported regarding the genitourinary system. Derm: No deficits noted. Musculoskeletal: No deficits noted. Trauma Activation: Alert Physician: ED Physician; Name: Anamaria; Notified At: 11:34; Arrived At: 11:34 Physician: General Surgeon; Name: ; Notified At: 11:34; Arrived At: Physician: Radiology; Name: ; Notified At: 11:34; Arrived At: Physician: Respiratory; Name: Al; Notified At: 11:34; Arrived At: Physician: Lab; Name: ; Notified At: 11:34; Arrived At: Historical: - Allergies: 11:38 No Known Allergies; bp - Home Meds: 11:38 amlodipine oral [Active]; clopidogrel oral [Active]; levothyroxine oral [Active]; bp Metformin Oral [Active]; Nifedipine Oral [Active]; sertraline oral [Active]; - PMHx: 11:38 Dementia; Hypertension; Hypothyroidism; Cerebrovascular accident; bp - Immunization history:: Adult Immunizations unknown. - Social history:: Smoking status: Patient denies any tobacco usage or history of. - Immunization history: Last tetanus immunization: unknown. Screenin:40 Abuse screen: Denies threats or abuse. Denies injuries from another. Nutritional bp screening: No deficits noted. Tuberculosis screening: No symptoms or risk factors identified. Fall Risk None identified. Primary Survey: 11:34 NO uncontrolled hemorrhage observed. A: The client is alert. Airway: patent. jl7 Breathing/Chest: Respiratory effort: spontaneous, unlabored, Respiratory pattern: regular, Chest inspection: symmetrical rise and fall of the chest. Circulation: Hemorrhage: No external hemorrhage noted. Pulses: palpable right radial artery and left radial artery. Skin color: pink, Skin temperature: warm, Cardiac rhythm: sinus bradycardia. Disability Client is alert. Exposure/Environment: There is no evidence of uncontrolled external bleeding. No obvious injuries are noted at this time. A warming method has been applied: A warm blanket has been provided to the patient. 12:00 Reassessment Alertness and Airway: Awake and alert. The airway is patent. Breathing: jl7 Spontaneous respiratory effort, equal unlabored respirations, breath sounds clear bilaterally, regular pattern with symmetrical chest rise and fall. Circulation: No external hemorrhage noted. Regular and strong central pulse, skin warm/dry/normal color. Disability: Alert. Assessment: 11:40 General: SEE TRIAGE NOTE. bp 12:06 Reassessment: PT RETURNED FROM CT. bp 13:29 Reassessment: PT NOW STATES +SYNCOPE AT HOME. bp 15:00 Reassessment: ADMIT INITIATED. bp 17:00 Reassessment: ADMIT IN PROCESS. bp 19:31 Reassessment: Patient appears in no apparent distress at this time. Patient and/or as6 family updated on plan of care and expected duration. Pain level reassessed. Patient is alert, oriented x 3, equal unlabored respirations, skin warm/dry/pink. Vital Signs: 11:34 BP 96 / 58; Pulse 56; Resp 19; Temp 98; Pulse Ox 97% ; bp 12:05 BP 106 / 57; Pulse 55; Resp 18; Pulse Ox 94% ; bp 13:00 BP 101 / 54; Pulse 54; Resp 19; Pulse Ox 94% ; jl7 13:29 BP 117 / 57; Pulse 57; Resp 14; Pulse Ox 93% ; bp 14:30 BP 120 / 58; Pulse 64; Resp 15; Pulse Ox 89% ; jl7 15:00 BP 92 / 80; Pulse 63; Resp 20; Pulse Ox 92% ; bp 17:00 BP 119 / 56; Pulse 62; Resp 17; Pulse Ox 94% ; bp 18:30 BP 134 / 56; Pulse 61; Resp 15; Pulse Ox 90% ; jl7 Rafael Coma Score: 11:34 Eye Response: spontaneous(4). Verbal Response: oriented(5). Motor Response: obeys jl7 commands(6). Total: 15. 12:05 Eye Response: spontaneous(4). Verbal Response: oriented(5). Motor Response: obeys jl7 commands(6). Total: 15. 13:00 Eye Response: spontaneous(4). Verbal Response: oriented(5). Motor Response: obeys jl7 commands(6). Total: 15. 13:29 Eye Response: spontaneous(4). Verbal Response: oriented(5). Motor Response: obeys jl7 commands(6). Total: 15. 14:30 Eye Response: spontaneous(4). Verbal Response: oriented(5). Motor Response: obeys jl7 commands(6). Total: 15. 15:00 Eye Response: spontaneous(4). Verbal Response: oriented(5). Motor Response: obeys jl7 commands(6). Total: 15. 17:00 Eye Response: spontaneous(4). Verbal Response: oriented(5). Motor Response: obeys jl7 commands(6). Total: 15. 18:30 Eye Response: spontaneous(4). Verbal Response: oriented(5). Motor Response: obeys jl7 commands(6). Total: 15. Trauma Score (Adult): 11:34 Eye Response: spontaneous(1); Verbal Response: oriented(1); Motor Response: obeys jl7 commands(2); Systolic BP: > 89 mm Hg(4); Respiratory Rate: 10 to 29 per min(4); Rafael Score: 15; Trauma Score: 12 ED Course: 11:34 Patient arrived in ED. bp 11:34 Client placed on continuous cardiac and pulse oximetry monitoring. NIBP monitoring jl7 applied. 11:34 Patient maintains SpO2 saturation greater than 95% on room air. Thermoregulation: warm jl7 blanket given to patient. 11:36 Triage completed. bp 11:37 Hussein Conrad DO is Attending Physician. ms3 11:37 Carlos Alvarez, RN is Primary Nurse. bp 11:40 Arm band placed on. bp 11:40 Patient has correct armband on for positive identification. Bed in low position. Call bp light in reach. Side rails up X2. 11:49 XRAY Chest (1 view) In Process Unspecified. EDMS 11:52 CT Head C Spine In Process Unspecified. EDMS 12:05 Inserted saline lock: 22 gauge in right wrist, using aseptic technique. Blood collected.bp 12:05 Initial lab(s) drawn, by ED staff, sent to lab. jl7 14:10 Esau Huddleston MD is Hospitalizing Provider. ms3 17:13 No provider procedures requiring assistance completed. Patient admitted, IV remains in bp place. 19:24 Primary Nurse role handed off by Carlos Alvarez, DINORAH mw2 19:30 Hernan Acuña RN is Primary Nurse. as6 Administered Medications: No medications were administered Medication: 11:40 VIS not applicable for this client. bp Intake: 19:01 PO: 0ml; IV: 0ml; Tubes: 0ml (); Total: 0ml. jl7 Output: 19:01 Urine: 0ml; Gastric: 0ml; Stool: 0; EBL: 0ml; Drainage: 0ml; Other: 0; Total: 0ml. jl7 Outcome: 14:11 Decision to Hospitalize by Provider. ms3 19:01 Patient's length of stay was not longer than 2 hours. jl7 20:05 Admitted to Tele accompanied by nurse, via wheelchair, room 418, with chart. as6 20:05 Condition: stable 20:05 Instructed on the need for admit. 20:07 Patient left the ED. aa9 Signatures: Dispatcher [employer] EDHolland Newell RN RN jl7 Carlos Alvarez, RN RN Alverto Valero mw2 Hussein Conrad, DO PAINTER ms3 Hernan Acuña RN RN as6 Christiana Sahu, DINORAH RN aa9
--- NOTE | 2022-05-31 14:12 | EDPHYS ---
Physician Documentation [facility] Name: Kyung Bonilla Age: 86 yrs Sex: Female : 1935 Arrival Date: 05/31/2022 Time: 11:34 Bed 8 Private MD: ED Physician Hussein Conrad HPI: 05/31 11:34 This 86 yrs old Female presents to ER via EMS with complaints of Cough. ms3 11:34 The patient or guardian reports cough. Details of fall: The patient fell from an ms3 upright position, while standing. Onset: The symptoms/episode began/occurred acutely, just prior to arrival. Associated injuries: The patient sustained injury to the head, pain. Severity of symptoms: At their worst the symptoms were moderate, in the emergency department the symptoms are unchanged. Patient states she slipped on the bathroom floor. Historical: - Allergies: 11:38 No Known Allergies; bp - Home Meds: 11:38 amlodipine oral [Active]; clopidogrel oral [Active]; levothyroxine oral [Active]; bp Metformin Oral [Active]; Nifedipine Oral [Active]; sertraline oral [Active]; - PMHx: 11:38 Dementia; Hypertension; Hypothyroidism; Cerebrovascular accident; bp - Immunization history:: Adult Immunizations unknown. - Social history:: Smoking status: Patient denies any tobacco usage or history of. - Immunization history: Last tetanus immunization: unknown. ROS: 11:40 Constitutional: Negative for fever, and chills. Neck: Negative for injury, pain, and ms3 swelling, Cardiovascular: Negative for chest pain, and palpitations. 11:40 Abdomen/GI: Negative for abdominal pain, nausea, vomiting, diarrhea, and constipation, MS/Extremity: Negative for injury and deformity, Skin: Negative for injury, rash, and discoloration, Psych: Negative for depression, anxiety, suicide ideation, homicidal ideation, and hallucinations. 11:40 Respiratory: Positive for cough. 11:40 All other systems are negative. Exam: 11:40 Constitutional: This is a well developed, well nourished patient who is awake, alert, ms3 and in no acute distress. Head/Face: Normocephalic, atraumatic. Eyes: Pupils equal round and reactive to light, extra-ocular motions intact. Lids and lashes normal. Conjunctiva and sclera are non-icteric and not injected. Periorbital areas with no swelling, redness, or edema. Neck: Trachea midline, no cervical lymphadenopathy. Supple, full range of motion without nuchal rigidity, or vertebral point tenderness. No Meningismus. Chest/axilla: Normal chest wall appearance and motion. Nontender with no deformity. Cardiovascular: Regular rate and rhythm with a normal S1 and S2. No gallops, murmurs, or rubs. Normal PMI, no JVD. No pulse deficits. Respiratory: Lungs have equal breath sounds bilaterally, clear to auscultation and percussion. No rales, rhonchi or wheezes noted. No increased work of breathing, no retractions or nasal flaring. Abdomen/GI: Soft, non-tender, with normal bowel sounds. No distension or tympany. No guarding or rebound. No evidence of tenderness throughout. Skin: Warm, dry with normal turgor. Normal color with no rashes, no lesions, and no evidence of cellulitis. Psych: Awake, alert, with orientation to person, place and time. Behavior, mood, and affect are within normal limits. 14:10 ECG was reviewed by the Attending Physician. ms3 Vital Signs: 11:34 BP 96 / 58; Pulse 56; Resp 19; Temp 98; Pulse Ox 97% ; bp 12:05 BP 106 / 57; Pulse 55; Resp 18; Pulse Ox 94% ; bp 13:00 BP 101 / 54; Pulse 54; Resp 19; Pulse Ox 94% ; jl7 13:29 BP 117 / 57; Pulse 57; Resp 14; Pulse Ox 93% ; bp 14:30 BP 120 / 58; Pulse 64; Resp 15; Pulse Ox 89% ; jl7 15:00 BP 92 / 80; Pulse 63; Resp 20; Pulse Ox 92% ; bp 17:00 BP 119 / 56; Pulse 62; Resp 17; Pulse Ox 94% ; bp 18:30 BP 134 / 56; Pulse 61; Resp 15; Pulse Ox 90% ; jl7 [place] Coma Score: 11:34 Eye Response: spontaneous(4). Verbal Response: oriented(5). Motor Response: obeys jl7 commands(6). Total: 15. 12:05 Eye Response: spontaneous(4). Verbal Response: oriented(5). Motor Response: obeys jl7 commands(6). Total: 15. 13:00 Eye Response: spontaneous(4). Verbal Response: oriented(5). Motor Response: obeys jl7 commands(6). Total: 15. 13:29 Eye Response: spontaneous(4). Verbal Response: oriented(5). Motor Response: obeys jl7 commands(6). Total: 15. 14:30 Eye Response: spontaneous(4). Verbal Response: oriented(5). Motor Response: obeys jl7 commands(6). Total: 15. 15:00 Eye Response: spontaneous(4). Verbal Response: oriented(5). Motor Response: obeys jl7 commands(6). Total: 15. 17:00 Eye Response: spontaneous(4). Verbal Response: oriented(5). Motor Response: obeys jl7 commands(6). Total: 15. 18:30 Eye Response: spontaneous(4). Verbal Response: oriented(5). Motor Response: obeys jl7 commands(6). Total: 15. Trauma Score (Adult): 11:34 Eye Response: spontaneous(1); Verbal Response: oriented(1); Motor Response: obeys jl7 commands(2); Systolic BP: > 89 mm Hg(4); Respiratory Rate: 10 to 29 per min(4); Rafael Score: 15; Trauma Score: 12 MDM: 11:37 Patient medically screened. ms3 12:54 ED course: Patient's daughter in law in ED room at this time. Daughter in law states ms3 that patient's son was cleaning up patient and she had a syncopal event. Will add additional labs.. 14:11 Differential diagnosis: closed head injury, contusion, sprain, strain. Data reviewed: ms3 vital signs, nurses notes, lab test result(s), EKG, radiologic studies, and as a result, I will admit patient. Data interpreted: elementary education teacher: rate is 61 beats/min, rhythm is normal sinus rhythm, with no ectopy, Interpretation: normal rate, normal rhythm. Counseling: I had a detailed discussion with the patient and/or guardian regarding: the historical points, exam findings, and any diagnostic results supporting the discharge/admit diagnosis, lab results, radiology results, the need for further work-up and treatment in the hospital. Medical screen evaluation completed. [facility] emergency medical condition absent. Medical screen evaluation completed. [facility] emergency medical condition absent. 05/31 11:37 Order name: Basic Metabolic Panel; Complete Time: 12:52 ms3 05/31 11:37 Order name: CBC with Diff; Complete Time: 19:09 ms3 05/31 11:37 Order name: Type And Screen; Complete Time: 19:09 ms3 05/31 12:40 Order name: CBC Smear Scan; Complete Time: 19:09 EDMS 05/31 12:56 Order name: Troponin High Sensitivity; Complete Time: 19:09 ms3 05/31 12:57 Order name: COVID-19 SARS RT PCR (Document "Date of Onset" if Symptomatic); Complete ms3 Time: 19:05/31 13:43 Order name: ABO/RH no charge; Complete Time: 19:09 EDMS 05/31 14:34 Order name: Urinalysis EDMS 05/31 14:34 Order name: CBC with Automated Diff EDMS 05/31 14:34 Order name: CBC with Automated Diff EDMS 05/31 14:34 Order name: Comprehensive Metabolic Panel EDMS 05/31 14:34 Order name: Comprehensive Metabolic Panel EDMS 05/31 14:34 Order name: Magnesium EDMS 05/31 14:34 Order name: Magnesium EDMS 05/31 11:37 Order name: CT Head C Spine; Complete Time: 12:52 ms3 05/31 11:37 Order name: XRAY Chest (1 view); Complete Time: 12:52 ms3 05/31 11:37 Order name: Labs collected and sent; Complete Time: 12:05 ms3 05/31 12:56 Order name: EKG; Complete Time: 12:57 ms3 05/31 12:56 Order name: Cardiac monitoring; Complete Time: 13:28 ms3 05/31 14:34 Order name: Regular EDMS 05/31 14:34 Order name: Phosphorus EDMS 05/31 14:34 Order name: Phosphorus EDMS 05/31 17:02 Order name: Urine Microscopic Only iw 05/31 17:03 Order name: Urine Dipstick-Ancillary; Complete Time: 19:09 EDMS 05/31 17:03 Order name: Urine Culture iw 05/31 17:46 Order name: Urine Microscopic Only; Complete Time: 19:09 EDMS EC:10 Rate is 60 beats/min. Rhythm is regular. QRS Wayne is Normal. NM interval is normal. QRS ms3 interval is normal. Clinical impression: NSR w/ Non-specific ST/T Changes. Interpreted by me. Reviewed by me. Administered Medications: No medications were administered Disposition Summary: 05/31/22 14:11 Hospitalization Ordered Hospitalization Status: Observation ms3 Provider: Esau Huddleston ms3 Location: Telemetry/MedSurg (observation) ms3 Condition: Stable ms3 Problem: new ms3 Symptoms: are unchanged ms3 Bed/Room Type: Standard ms3 Room Assignment: 418(05/31/22 19:33) mw Diagnosis - syncope ms3 - Generalized weakness ms3 - Fall ms3 Forms: - Medication Reconciliation Form ms3 - SBAR form ms3 Signatures: Dispatcher [employer] EDMS Calli Smith RN RN mw Jacob Martinez, SALESPERSON TERRAZZO TILES-C SALESPERSON TERRAZZO TILES-Cla1 Holland Lyon RN RN jl7 Carlos Alvarez RN RN bp Sims, Marcus, DO DO ms3 Corrections: (The following items were deleted from the chart) 18:56 18:53 The patient or guardian reports cough, ms3 ms3 18:56 18:53 This 86 yrs old Female presents to ER via EMS with complaints of Cough. ms3 ms3 18:56 18:53 Details of fall: The patient fell from an upright position, while standing, ms3 ms3 18:56 18:53 Onset: The symptoms/episode began/occurred acutely, just prior to arrival, ms3 ms3 18:56 18:53 Associated injuries: The patient sustained injury to the head, pain, ms3 ms3 18:56 18:53 Severity of symptoms: At their worst the symptoms were moderate, in the emergency ms3 department the symptoms are unchanged, ms3 18:56 18:53 Patient states she slipped on the bathroom floor. ms3 ms3 19:33 14:11 ms3 mw
--- NOTE | 2022-05-31 14:55 | P.HP ---
Certification for Inpatient Patient admitted to: Observation With expected LOS: <2 Midnights Patient will require the following post-hospital care: None Practitioner: I am a practitioner with admitting privileges, knowledge of patient current condition, hospital course, and medical plan of care. Services: Services provided to patient in accordance with Admission requirements found in Title 42 Section 412.3 of the Code of Federal Regulations Patient History Date of Service: 05/31/22 Reason for admission: Syncope History of Present Illness: Ms. Kyung Bonilla is a 86 year old female who has a past medical history of advanced dementia, multiple transient ischemic attacks, type 2 diabetes mellitus, hypertension, and hypothyroidism who presents to the [facility] Emergency Department for an episode of syncope. She has fairly advanced dementia at baseline, so history is provided by her daughter, who is at bedside. It appears that, yesterday evening around 23:00, she had an episode of syncope while in the shower. The fall was unwitnessed, but she believes that she hit her head. She denies any preceding symptoms. She narciso es any obvious inciting or alleviating factors. She was not given any medications prior to arrival. On review of systems, denies any fevers, chills, headaches, dizziness, weakness, chest pain, palpitations, shortness of breath, wheezing, cough, abdominal pain, nausea/vomiting, diarrhea, constipation, hematochezia, melena, dysuria, hematuria, myalgia, or any other symptoms. She presented to the Emergency Department for further evaluation. Upon presentation, her vital signs were stable. Her laboratory studies were notable for potassium of 3.2. Blood cultures x 2 were obtained. EKG revealed sin us rhythm without STEMI criteria. Urinalysis revealed trace blood, positive nitrite, 1+ leukocyte esterase, 20-50 WBC, and loaded bacteria. CT head/cervical spine revealed, "no hemorrhage, edema or acute intracranial finding. CT head findings are similar to February study. Cervical spine degenerative change as detailed. This is similar to comparison with no acute findings seen." Chest x- ray revealed, "underinflated lungs without acute process delineated." She was admitted to the General Internal Medicine service for further evaluation. Allergies No Known Allergies Allergy (Unverified 03/26/20 21:18) Home medications list reviewed: Yes Home Medications: Clopidogrel Bisulfate [Plavix*] 1 tab PO DAILY 03/26/20 Levothyroxine Sodium 1 tab PO DAILY 03/26/20 Metformin ER [Glucophage ER*] 1 tab PO BID 03/26/20 NIFEdipine [Nifedipine ER] 1 tab PO BID 03/26/20 Sertraline [Zoloft*] 1 tab PO BID 03/26/20 Trimethoprim 100 mg PO DAILY 10/20/21 Amlodipine [Norvasc*] 2.5 mg FT DAILY tab 10/23/21 Aspirin [Aspirin EC 81 MG] 81 mg PO DAILY 30 Days #30 tablet.dr 10/23/21 Atorvastatin Calcium [Lipitor] 40 mg PO BEDTIME tab 10/23/21 Clopidogrel Bisulfate [Plavix*] 75 mg PO DAILY tablet 10/23/21 Folic Acid 1 mg PO DAILY 30 Days #30 tablet 10/23/21 Nystatin Powder [Mycostatin (Powder)*] 1 appl TOP BID btl 10/23/21 - Past Medical/Surgical History Diabetic: Yes -: Hypertension -: Diabetes mellitus, Noninsulin-dependent -: advanced dementia -: Hyperlipidemia -: Recurrent UTIs -: hysterectomy -: Bilateral knee surgery - Family History Mother -: Heart disease Brother -: Heart disease Sister -: Heart disease - Social History Alcohol use: No CD- Drugs: No Caffeine use: Yes Review of Systems General: Unremarkable Eyes: Unremarkable ENT: Unremarkable Respiratory: Unremarkable Cardiovascular: Unremarkable Gastrointestinal: Unremarkable Genitourinary: Unremarkable Musculoskeletal: Unremarkable Integumentary: Unremarkable Neurological: Other (syncope) Physical Examination - Vital Signs Temperature: 98.0 F Blood Pressure: 117/57 Pulse: 57 Respirations: 14 Pulse Ox (%): 93 - Physical Exam General: Alert, In no apparent distress HEENT: Atraumatic, Mucous membr. moist/pink Neck: Supple, Without JVD or thyroid abnormality Respiratory: Clear to auscultation bilaterally Cardiovascular: No edema, Regular rate/rhythm, No gallops, No rubs, No murmurs Gastrointestinal: Normal bowel sounds, Soft and benign, No tenderness, No rebound, No guarding Musculoskeletal: No clubbing Integumentary: No rashes Neurological: Dementia - Studies Laboratory Data (last 24 hrs) 05/31/22 12:05: WBC 4.0 L, Hgb 10.4 L, Hct 32.2 L, Plt Count 198 05/31/22 12:05: Sodium 136, Potassium 3.2 L, BUN 18, Creatinine 1.15, Glucose 125 H Assessment and Plan - Plan # Syncope # Traumatic Ground-Level Fall Differential diagnoses include, but are not limited to, vasovagal syncope, orth ostatic hypotension, cardiac etiology (i.e. arrhythmia, valvulopathy), and neurogenic etiologies. Will initiate further evaluation as outlined below: - Orthostatic vital signs Telemetry - EKG, serial troponin - Transthoracic echocardiogram - Noncontrast CT head/cervical spine = "no hemorrhage, edema or acute intracranial finding." # Asymptomatic COVID-19 Infection - Monitor respiratory status - Supplemental oxygen to maintain SpO2 >92 % - Incentive spirometry - Isolation precautions # Advanced Dementia # Multiple Transient Ischemic Attack # Hypertension - Continue home aspirin, clopidogrel, pramipexole, amlodipine # Hypothyroidism - Continue home levothyroxine # Type II Diabetes Mellitus - Correction scale insulin ordered - Continue home gabapentin - Hold home metformin while hospitalized # Suspect Iron Deficiency Anemia - Mentzer index > 13, suggestive of NIA. - Started ferrous sulfate Esau Huddleston MD Discharge Plan: Home Plan to discharge in: 24 Hours - Advance Directives Does patient have a Living Will: No Does patient have a Durable POA for Healthcare: Yes - Code Status/Comfort Care Code Status Assessed: Yes Code Status: Full Code
[2022-05-31] MEDS: INSULIN -REGULAR HUMAN 50 UNIT/0.5 ML ML SQ SCH ×2 (16:30→21:00)
[2022-05-31 17:02] LABS: Urine Blood Trace-intact (Negative); Urine Glucose Negative (Negative); Urine Protein 1+ (Negative); Urine Specific Gravity 1.025 (1.005-1.030); Urine pH 5.5 (5.0-7.0)
[2022-05-31 17:46] LABS: Urine Bacteria LOADED /HPF (<20); Urine Mucus HEAVY /HPF (NONE SEEN); Urine RBC <5 /HPF (NONE SEEN)
[2022-05-31] MEDS: SERTRALINE HCL 50 MG TAB PO SCH (21:13)
[2022-05-31] MEDS: ATORVASTATIN 40 MG TAB PO SCH (21:13)
[2022-05-31 22:25] VITALS: BMI 29.0
[2022-06-01 00:20] VITALS: O2SAT 92
[2022-06-01 04:07] LABS: Absolute Lymphocytes (CBC) 0.9 K/uL (0.7-4.9); Lymphocytes % 27.4 % (15.3-44.8); MPV 8.2 fL (7.6-11.3); RBC Red Blood Cell Count 4.68 M/uL (3.86-4.86)
[2022-06-01 04:08] LABS: MCV 68.4 fL (80-100)
[2022-06-01 04:09] LABS: Albumin 3.1 g/dL (3.4-5.0); Bilirubin Total 0.2 mg/dL (0.2-1.0); Magnesium 2.1 mg/dL (1.8-2.4); Phosphorus 4.1 mg/dL (2.5-4.9); Potassium 3.2 mmol/L (3.5-5.1); Protein, Total 6.8 g/dL (6.4-8.2)
[2022-06-01] MEDS ORDERED: POTASSIUM 25 MEQ EFFERV TAB PO ONE (05:56)
[2022-06-01] MEDS: INSULIN -REGULAR HUMAN 50 UNIT/0.5 ML ML SQ SCH ×4 (07:30→20:33)
[2022-06-01] MEDS: CEFTRIAXONE 1,000 MG in NA CHLORIDE 0.9% 50 ML IVPB SCH (10:09)
[2022-06-01] MEDS: ENOXAPARIN 40 MG/0.4 ML SQ SCH (10:14)
[2022-06-01] MEDS: ASPIRIN EC 81 MG TAB PO SCH (10:15)
[2022-06-01] MEDS: CLOPIDOGREL 75 MG TABLET PO SCH (10:15)
[2022-06-01] MEDS: SERTRALINE HCL 50 MG TAB PO SCH ×2 (10:15→20:32)
[2022-06-01] MEDS: FOLIC ACID 1 MG TABLET PO SCH (10:15)
[2022-06-01] MEDS: LEVOTHYROXINE SOD 0.05 MG TABLET PO SCH (10:15)
[2022-06-01] MEDS: FERROUS SULFATE 325 MG TAB PO SCH (10:15)
--- NOTE | 2022-06-01 11:09 | EKG ---
Test Date: 2022-05-31 Test Time: 14:10:25 Field Machinist: SAEED MEASUREMENT RESULTS: Intervals: Rate: 60 NH: 164 QRSD: 84 QT: 446 QTc: 446 [place]: P: 75 NH: 164 QRS: -2 T: 92 INTERPRETIVE STATEMENTS: Normal sinus rhythm Possible Left atrial enlargement Anteroseptal infarct, age undetermined Abnormal ECG Compared to ECG 10/22/2021 09:51:59 Left ventricular hypertrophy no longer present Myocardial infarct finding still present Electronically Signed On 06-01-22 11:06:44 CDT by Nic Billingsley
--- NOTE | 2022-06-01 12:04 | ECHO ---
HEIGHT: 5 ft 6 in WEIGHT: 180 lb 0 oz DATE OF STUDY: 06/01/[address]: Esau Huddleston 2-DIMENSIONAL: YES M.MODE: YES DOPPLER: YES COLOR FLOW: YES TDS: NO PORTABLE: YES DEFINITY: NO BUBBLE STUDY: NO DIAGNOSIS: SYNCOPE CARDIAC HISTORY: CATHERIZATION: SURGERY: PROSTHETIC VALVE: PACEMAKER: MEASUREMENTS (cm) DIASTOLIC (NORMALS) SYSTOLIC (NORMALS) IVSd 0.9 (0.6-1.2) LA Diam 3.9 (1.9-4.0) LVEF 64% LVIDd 4.6 (3.5-5.7) LVIDs 3.0 (2.0-3.5) %FS 35% LVPWd 0.9 (0.6-1.2) Ao Diam 2.7 (2.0-3.7) 2 DIMENSIONAL ASSESSMENT: RIGHT ATRIUM: NORMAL LEFT ATRIUM: NORMAL RIGHT VENTRICLE: NORMAL LEFT VENTRICLE: NORMAL TRICUSPID VALVE: NORMAL MITRAL VALVE: NORMAL PULMONIC VALVE: NORMAL AORTIC VALVE: NORMAL PERICARDIAL EFFUSION: NONE AORTIC ROOT: NORMAL LEFT VENTRICULAR WALL MOTION: NORMAL. DOPPLER/COLOR FLOW: MILD PULMONIC INSUFFICIENCY. COMMENTS: NORMAL LEFT VENTRICULAR EJECTION FRACTION 60-65%. NORMAL WALL MOTION. MILD PULMONIC INSUFFICIENCY. TECHNOLOGIST: GIULIA ARIAS
--- NOTE | 2022-06-01 14:59 | P.PN ---
Subjective Date of Service: 06/01/22 Chief Complaint: Syncope No acute events overnight. Orthostatic vital signs were negative. Spoke with her son, Mr. Jose Garcia, who is concerned about her safety at home due to balance issues. He is requesting PT evaluation for possible SNF placement, which is reasonable. Review of Systems General: Unremarkable Eyes: Unremarkable ENT: Unremarkable Respiratory: Unremarkable Cardiovascular: Unremarkable Gastrointestinal: Unremarkable Genitourinary: Unremarkable Musculoskeletal: Unremarkable Integumentary: Unremarkable Neurological: Other (syncope) Physical Examination - Vital Signs Temperature: 97.5 F Blood Pressure: 169/70 Pulse: 65 Respirations: 16 Pulse Ox (%): 93 - Physical Exam General: Alert, In no apparent distress, Oriented x1 HEENT: Atraumatic, Mucous membr. moist/pink Neck: Supple, Without JVD or thyroid abnormality Respiratory: Clear to auscultation bilaterally, Crackles/rales Cardiovascular: No edema, Regular rate/rhythm, No gallops, No rubs, No murmurs Gastrointestinal: Normal bowel sounds, Soft and benign, Non-distended, No tenderness, No rebound, No guarding Musculoskeletal: No clubbing, No swelling Integumentary: No rashes Neurological: Dementia - Studies Medications List Reviewed: Yes Assessment And Plan - Plan # Syncope # Traumatic Ground-Level Fall Differential diagnoses include, but are not limited to, vasovagal syncope, orthostatic hypotension, cardiac etiology (i.e. arrhythmia, valvulopathy), and neurogenic etiologies. Will initiate further evaluation as outlined below: - Orthostatic vital signs = negative Telemetry - No changes reported by industrial ecology technician - Spoke with Dr. Billingsley (Cardiology), who will set her up for outpatient follow up for possible Holter/loop recorder - EKG, serial troponin - Transthoracic echocardiogram = "normal left ventricular ejection fraction 60- 65%. Normal wall motion. Mild pulmonic insufficiency." - Noncontrast CT head/cervical spine = "no hemorrhage, edema or acute intracranial finding." - Case Management consulted for placement - PT/OT consult requested # Asymptomatic COVID-19 Infection - s/p Moderna COVID-19 vaccine + booster, with last dose in November 2021 - Monitor respiratory status - Supplemental oxygen to maintain SpO2 >92 % - Incentive spirometry - Isolation precautions # Advanced Dementia # Multiple Transient Ischemic Attack # Hypertension - Continue home aspirin, clopidogrel, pramipexole, amlodipine # Hypothyroidism - Continue home levothyroxine # Type II Diabetes Mellitus - Correction scale insulin ordered - Continue home gabapentin - Hold home metformin while hospitalized # Suspect Iron Deficiency Anemia - Mentzer index > 13, suggestive of NIA. - Started ferrous sulfate Esau Huddleston MD
[2022-06-01] MEDS: ATORVASTATIN 40 MG TAB PO SCH (20:32)
[2022-06-01] MEDS: ACETAMINOPHEN 500 MG TAB PO PRN (20:32)
[2022-06-02] MEDS: AMLODIPINE 5 MG TAB PO SCH ×2 (00:50→20:26)
[2022-06-02 04:44] LABS: Absolute Lymphocytes (CBC) 0.9 K/uL (0.7-4.9); Hematocrit 34.8 % (36.0-45.0); Lymphocytes % 31.1 % (15.3-44.8); MPV 7.6 fL (7.6-11.3); RBC Red Blood Cell Count 5.05 M/uL (3.86-4.86)
[2022-06-02 05:07] LABS: Potassium 2.9 mmol/L (3.5-5.1)
[2022-06-02] MEDS ORDERED: POTASSIUM CL SA 10 MEQ TAB PO ONE ×3 (05:56→22:24)
[2022-06-02] MEDS: INSULIN -REGULAR HUMAN 50 UNIT/0.5 ML ML SQ SCH ×4 (07:30→20:26)
[2022-06-02] MEDS: FOLIC ACID 1 MG TABLET PO SCH (08:41)
[2022-06-02] MEDS: LEVOTHYROXINE SOD 0.05 MG TABLET PO SCH (08:41)
[2022-06-02] MEDS: FERROUS SULFATE 325 MG TAB PO SCH (08:41)
[2022-06-02] MEDS: ASPIRIN EC 81 MG TAB PO SCH (08:41)
[2022-06-02] MEDS: SERTRALINE HCL 50 MG TAB PO SCH ×2 (08:42→20:27)
[2022-06-02] MEDS: CEFTRIAXONE 1,000 MG in NA CHLORIDE 0.9% 50 ML IVPB SCH (08:42)
[2022-06-02] MEDS: ENOXAPARIN 40 MG/0.4 ML SQ SCH (08:42)
[2022-06-02] MEDS: CLOPIDOGREL 75 MG TABLET PO SCH (08:42)
[2022-06-02] MEDS: ACETAMINOPHEN 500 MG TAB PO PRN ×2 (12:46→20:28)
[2022-06-02 14:05] LABS: Potassium 3.4 mmol/L (3.5-5.1)
--- NOTE | 2022-06-02 14:35 | P.PN ---
Subjective Date of Service: 06/02/22 Chief Complaint: Syncope No acute events overnight. She feels well today and is asking to be discharged soon. PT/OT evaluation is scheduled for today. Review of Systems General: Unremarkable Eyes: Unremarkable ENT: Unremarkable Respiratory: Unremarkable Cardiovascular: Unremarkable Gastrointestinal: Unremarkable Genitourinary: Unremarkable Musculoskeletal: Unremarkable Integumentary: Unremarkable Neurological: Other (syncope) Physical Examination - Vital Signs Temperature: 97 F Blood Pressure: 170/79 Pulse: 75 Respirations: 18 Pulse Ox (%): 95 - Physical Exam General: Alert, In no apparent distress, Oriented x1 HEENT: Atraumatic, Mucous membr. moist/pink Neck: Supple, Without JVD or thyroid abnormality Respiratory: Clear to auscultation bilaterally Cardiovascular: No edema, Regular rate/rhythm, Normal S1 S2, No gallops, No rubs, No murmurs Gastrointestinal: Normal bowel sounds, Soft and benign, No tenderness, No rebound, No guarding Musculoskeletal: No clubbing Integumentary: No rashes Neurological: Dementia - Studies Medications List Reviewed: Yes Assessment And Plan - Plan # Syncope # Traumatic Ground-Level Fall Differential diagnoses include, but are not limited to, vasovagal syncope, orthostatic hypotension, cardiac etiology (i.e. arrhythmia, valvulopathy), and neurogenic etiologies. Will initiate further evaluation as outlined below: - Orthostatic vital signs = negative Telemetry - No changes reported by technical supervisor - Spoke with Dr. Billingsley (Cardiology), who will set her up for outpatient follow up for possible Holter/loop recorder - EKG, serial troponin - Transthoracic echocardiogram = "normal left ventricular ejection fraction 60- 65%. Normal wall motion. Mild pulmonic insufficiency." - Noncontrast CT head/cervical spine = "no hemorrhage, edema or acute intracranial finding." - Case Management consulted for placement - PT/OT consult requested # Gram-Negative Rods in urine - UTI vs Asymptomatic Bacteruria Unable to adequately assess symptoms given her advanced dementia. - Will treat with 5-day course of antibiotics - Today is day # 2 of ceftriaxone # Asymptomatic COVID-19 Infection - s/p Moderna COVID-19 vaccine + booster, with last dose in November 2021 - Monitor respiratory status - Supplemental oxygen to maintain SpO2 >92 % - Incentive spirometry - Isolation precautions # Advanced Dementia # Multiple Transient Ischemic Attack # Hypertension - Continue home aspirin, clopidogrel, pramipexole, amlodipine # Hypothyroidism - Continue home levothyroxine # Type II Diabetes Mellitus - Correction scale insulin ordered - Continue home gabapentin - Hold home metformin while hospitalized # Suspect Iron Deficiency Anemia - Mentzer index > 13, suggestive of NIA. - Started ferrous sulfate Esau Huddleston MD
[2022-06-02] MEDS: ATORVASTATIN 40 MG TAB PO SCH (20:26)
[2022-06-02] MEDS: MELATONIN 5 MG TABLET PO PRN (23:00)
[2022-06-03 04:45] LABS: Hematocrit 37.3 % (36.0-45.0); MCV 69.3 fL (80-100); MPV 7.9 fL (7.6-11.3); RBC Red Blood Cell Count 5.38 M/uL (3.86-4.86)
[2022-06-03 04:49] LABS: Potassium 3.4 mmol/L (3.5-5.1)
[2022-06-03] MEDS: INSULIN -REGULAR HUMAN 50 UNIT/0.5 ML ML SQ SCH ×4 (07:30→20:46)
[2022-06-03] MEDS ORDERED: POTASSIUM CL SA 10 MEQ TAB PO ONE (09:00)
[2022-06-03] MEDS: SERTRALINE HCL 50 MG TAB PO SCH ×2 (09:07→20:43)
[2022-06-03] MEDS: ENOXAPARIN 40 MG/0.4 ML SQ SCH (09:07)
[2022-06-03] MEDS: CEFTRIAXONE 1,000 MG in NA CHLORIDE 0.9% 50 ML IVPB SCH (09:07)
[2022-06-03] MEDS: FERROUS SULFATE 325 MG TAB PO SCH (09:07)
[2022-06-03] MEDS: FOLIC ACID 1 MG TABLET PO SCH (09:07)
[2022-06-03] MEDS: LEVOTHYROXINE SOD 0.05 MG TABLET PO SCH (09:08)
[2022-06-03] MEDS: ASPIRIN EC 81 MG TAB PO SCH (09:08)
[2022-06-03] MEDS: CLOPIDOGREL 75 MG TABLET PO SCH (09:08)
[2022-06-03] MEDS: HYDRALAZINE HCL 20 MG/ML VIAL IV PRN ×2 (12:37→18:11)
--- NOTE | 2022-06-03 17:21 | P.PN ---
Subjective Date of Service: 06/03/22 Chief Complaint: Syncope No acute events overnight. She feels well today and reports no concerns. She is medically cleared for discharge, but is pending placement. Review of Systems General: Unremarkable Eyes: Unremarkable ENT: Unremarkable Respiratory: Unremarkable Cardiovascular: Unremarkable Gastrointestinal: Unremarkable Genitourinary: Unremarkable Musculoskeletal: Unremarkable Integumentary: Unremarkable Neurological: Other (syncope) Physical Examination - Vital Signs Temperature: 97.6 F Blood Pressure: 179/79 Pulse: 67 Respirations: 18 Pulse Ox (%): 97 - Physical Exam General: Alert, In no apparent distress HEENT: Atraumatic, Mucous membr. moist/pink Neck: Supple, Without JVD or thyroid abnormality Respiratory: Clear to auscultation bilaterally, Normal air movement, Diminished Cardiovascular: No edema, Regular rate/rhythm, Normal S1 S2, No gallops, No rubs, No murmurs Gastrointestinal: Normal bowel sounds, Soft and benign, No tenderness, No rebound, No guarding Musculoskeletal: No clubbing Integumentary: No rashes Neurological: Dementia - Studies Microbiology Data (last 24 hrs): 05/31/22 17:14 Clean Catch Urine [place] Count - Final >100,000 CFU/ML. 05/31/22 17:14 Clean Catch Urine - Final Escherichia Coli Gram Neg Jose Medications List Reviewed: Yes Assessment And Plan - Plan # Syncope # Traumatic Ground-Level Fall Differential diagnoses include, but are not limited to, vasovagal syncope, orthostatic hypotension, cardiac etiology (i.e. arrhythmia, valvulopathy), and neurogenic etiologies. Will initiate further evaluation as outlined below: - Orthostatic vital signs = negative Telemetry - No changes reported by technical illustrator - Spoke with Dr. Billingsley (Cardiology), who will set her up for outpatient follow up for possible Holter/loop recorder - EKG, serial troponin - Transthoracic echocardiogram = "normal left ventricular ejection fraction 60- 65%. Normal wall motion. Mild pulmonic insufficiency." - Noncontrast CT head/cervical spine = "no hemorrhage, edema or acute intracranial finding." - Case Management consulted for placement - PT/OT consult requested - She is stable for discharge, but currently pending placement # Gram-Negative Rods in urine - UTI vs Asymptomatic Bacteruria Unable to adequately assess symptoms given her advanced dementia. - Will treat with 5-day course of antibiotics - Today is day # 3 of ceftriaxone # Asymptomatic COVID-19 Infection - s/p Moderna COVID-19 vaccine + booster, with last dose in November 2021 - Monitor respiratory status - Supplemental oxygen to maintain SpO2 >92 % - Incentive spirometry - Isolation precautions # Advanced Dementia # Multiple Transient Ischemic Attack # Hypertension - Continue home aspirin, clopidogrel, pramipexole, amlodipine # Hypothyroidism - Continue home levothyroxine # Type II Diabetes Mellitus - Correction scale insulin ordered - Continue home gabapentin - Hold home metformin while hospitalized # Suspect Iron Deficiency Anemia - Mentzer index > 13, suggestive of NIA. - Started ferrous sulfate Esau Huddleston MD
[2022-06-03] MEDS: ATORVASTATIN 40 MG TAB PO SCH (20:42)
[2022-06-03] MEDS: AMLODIPINE 5 MG TAB PO SCH (20:42)
[2022-06-04] MEDS: HYDRALAZINE HCL 20 MG/ML VIAL IV PRN ×2 (03:33→17:45)
[2022-06-04 04:48] LABS: Potassium 3.5 mmol/L (3.5-5.1)
[2022-06-04] MEDS: INSULIN -REGULAR HUMAN 50 UNIT/0.5 ML ML SQ SCH ×4 (07:30→21:00)
[2022-06-04] MEDS ORDERED: CEFTRIAXONE 1000 MG/VIAL ONE (09:56)
[2022-06-04] MEDS ORDERED: NA CHLORIDE 0.9% 50 ML ONE (09:59)
[2022-06-04] MEDS: CEFTRIAXONE 1,000 MG in NA CHLORIDE 0.9% 50 ML IVPB SCH (10:32)
[2022-06-04] MEDS: FERROUS SULFATE 325 MG TAB PO SCH (10:35)
[2022-06-04] MEDS: LEVOTHYROXINE SOD 0.05 MG TABLET PO SCH (10:35)
[2022-06-04] MEDS: SERTRALINE HCL 50 MG TAB PO SCH ×2 (10:35→21:43)
[2022-06-04] MEDS: ASPIRIN EC 81 MG TAB PO SCH (10:35)
[2022-06-04] MEDS: FOLIC ACID 1 MG TABLET PO SCH (10:35)
[2022-06-04] MEDS: CLOPIDOGREL 75 MG TABLET PO SCH (10:35)
[2022-06-04] MEDS: ENOXAPARIN 40 MG/0.4 ML SQ SCH (10:36)
--- NOTE | 2022-06-04 15:52 | P.PN ---
Subjective Date of Service: 06/04/22 Chief Complaint: Syncope No acute events overnight. This morning on rounds, she appeared comfortable and was sitting upright eating breakfast. She is medically cleared for discharge, but is pending placement. Review of Systems General: Unremarkable Eyes: Unremarkable ENT: Unremarkable Respiratory: Unremarkable Cardiovascular: Unremarkable Gastrointestinal: Unremarkable Genitourinary: Unremarkable Musculoskeletal: Unremarkable Integumentary: Unremarkable Neurological: Other (dementia) Physical Examination - Vital Signs Temperature: 97.9 F Blood Pressure: 171/81 Pulse: 79 Respirations: 18 Pulse Ox (%): 99 - Physical Exam General: Alert, In no apparent distress, Oriented x2 HEENT: Atraumatic, Mucous membr. moist/pink, EOMI Neck: Supple, Without JVD or thyroid abnormality Respiratory: Diminished Cardiovascular: Regular rate/rhythm, No gallops, No rubs, No murmurs Gastrointestinal: Normal bowel sounds, Soft and benign, No tenderness, No rebound, No guarding Musculoskeletal: No clubbing Integumentary: No rashes Neurological: Dementia - Studies Medications List Reviewed: Yes Assessment And Plan - Plan # Syncope # Traumatic Ground-Level Fall Differential diagnoses include, but are not limited to, vasovagal syncope, orthostatic hypotension, cardiac etiology (i.e. arrhythmia, valvulopathy), and neurogenic etiologies. Will initiate further evaluation as outlined below: - Orthostatic vital signs = negative Telemetry - No changes reported by prepress technician - Spoke with Dr. Billingsley (Cardiology), who will set her up for outpatient follow up for possible Holter/loop recorder - EKG, serial troponin - Transthoracic echocardiogram = "normal left ventricular ejection fraction 60- 65%. Normal wall motion. Mild pulmonic insufficiency." - Noncontrast CT head/cervical spine = "no hemorrhage, edema or acute intracranial finding." - Case Management consulted for placement - PT/OT consult requested # Gram-Negative Rods in urine - UTI vs Asymptomatic Bacteruria Unable to adequately assess symptoms given her advanced dementia. - Will treat with 5-day course of antibiotics - Today is day # 4 of ceftriaxone # Asymptomatic COVID-19 Infection - s/p Moderna COVID-19 vaccine + booster, with last dose in November 2021 - Monitor respiratory status - Supplemental oxygen to maintain SpO2 >92 % - Incentive spirometry - Isolation precautions # Advanced Dementia # Multiple Transient Ischemic Attack # Hypertension - Continue home aspirin, clopidogrel, pramipexole, amlodipine # Hypothyroidism - Continue home levothyroxine # Type II Diabetes Mellitus - Correction scale insulin ordered - Continue home gabapentin - Hold home metformin while hospitalized # Suspect Iron Deficiency Anemia - Mentzer index > 13, suggestive of NIA. - Started ferrous sulfate She is stable for discharge, but currently pending placement. She will likely be in our hospital until Monday (06/06/2022) awaiting placement into SNF. Esau Huddleston MD Plan to discharge in: 48 Hours Critical Care: No
[2022-06-04] MEDS: AMLODIPINE 5 MG TAB PO SCH (21:43)
[2022-06-04] MEDS: ATORVASTATIN 40 MG TAB PO SCH (21:44)
[2022-06-05] MEDS: HYDRALAZINE HCL 20 MG/ML VIAL IV PRN ×2 (04:37→11:31)
[2022-06-05] MEDS: INSULIN -REGULAR HUMAN 50 UNIT/0.5 ML ML SQ SCH ×4 (07:30→20:40)
[2022-06-05] MEDS: ENOXAPARIN 40 MG/0.4 ML SQ SCH (09:03)
[2022-06-05] MEDS: ASPIRIN EC 81 MG TAB PO SCH (09:05)
[2022-06-05] MEDS: LEVOTHYROXINE SOD 0.05 MG TABLET PO SCH (09:05)
[2022-06-05] MEDS: FOLIC ACID 1 MG TABLET PO SCH (09:05)
[2022-06-05] MEDS: FERROUS SULFATE 325 MG TAB PO SCH (09:06)
[2022-06-05] MEDS: CLOPIDOGREL 75 MG TABLET PO SCH (09:06)
[2022-06-05] MEDS: SERTRALINE HCL 50 MG TAB PO SCH ×2 (09:06→20:44)
[2022-06-05] MEDS: CEFTRIAXONE 1,000 MG in NA CHLORIDE 0.9% 50 ML IVPB SCH (09:06)
--- NOTE | 2022-06-05 16:25 | P.PN ---
Subjective Date of Service: 06/05/22 Chief Complaint: Syncope No acute events overnight. She reports no questions or concerns this morning. She is medically cleared for discharge, but is pending placement. Review of Systems General: Unremarkable Eyes: Unremarkable ENT: Unremarkable Respiratory: Unremarkable Cardiovascular: Unremarkable Gastrointestinal: Unremarkable Genitourinary: Unremarkable Musculoskeletal: Unremarkable Integumentary: Unremarkable Neurological: Unremarkable Physical Examination - Vital Signs Temperature: 97.4 F Blood Pressure: 154/60 Pulse: 73 Respirations: 18 Pulse Ox (%): 96 - Physical Exam General: Alert, In no apparent distress HEENT: Atraumatic, Mucous membr. moist/pink, EOMI, Sclerae nonicteric Neck: Supple, JVD not distended Respiratory: Clear to auscultation bilaterally, Normal air movement, Diminished Cardiovascular: Regular rate/rhythm, Normal S1 S2, No gallops, No rubs, No murmurs, Edema (trace) Gastrointestinal: Normal bowel sounds, No tenderness, No rebound, No guarding Musculoskeletal: No tenderness Integumentary: No rashes Neurological: Dementia - Studies Medications List Reviewed: Yes Assessment And Plan - Plan # Syncope # Traumatic Ground-Level Fall Differential diagnoses include, but are not limited to, vasovagal syncope, orthostatic hypotension, cardiac etiology (i.e. arrhythmia, valvulopathy), and neurogenic etiologies. Will initiate further evaluation as outlined below: - Orthostatic vital signs = negative Telemetry - No changes reported by dental technician apprentice - Spoke with Dr. Billingsley (Cardiology), who will set her up for outpatient follow up for possible Holter/loop recorder - EKG, serial troponin - Transthoracic echocardiogram = "normal left ventricular ejection fraction 60- 65%. Normal wall motion. Mild pulmonic insufficiency." - Noncontrast CT head/cervical spine = "no hemorrhage, edema or acute intracranial finding." - Case Management consulted for placement - PT/OT consult requested # Gram-Negative Rods in urine - UTI vs Asymptomatic Bacteruria Unable to adequately assess symptoms given her advanced dementia. - Will treat with 5-day course of antibiotics - Today is day # 5 of ceftriaxone # Asymptomatic COVID-19 Infection - s/p Moderna COVID-19 vaccine + booster, with last dose in November 2021 - Monitor respiratory status - Supplemental oxygen to maintain SpO2 >92 % - Incentive spirometry - Isolation precautions # Advanced Dementia # Multiple Transient Ischemic Attack # Hypertension - Continue home aspirin, clopidogrel, pramipexole, amlodipine # Hypothyroidism - Continue home levothyroxine # Type II Diabetes Mellitus - Correction scale insulin ordered - Continue home gabapentin - Hold home metformin while hospitalized # Suspect Iron Deficiency Anemia - Mentzer index > 13, suggestive of NIA. - Started ferrous sulfate She is stable for discharge, but currently pending placement. She will likely be in our hospital until tomorrow (06/06/2022) awaiting placement into SNF. Esau Huddleston MD Plan to discharge in: 24 Hours Critical Care: No
[2022-06-05] MEDS: MELATONIN 5 MG TABLET PO PRN (20:44)
[2022-06-05] MEDS: AMLODIPINE 5 MG TAB PO SCH (20:44)
[2022-06-05] MEDS: ATORVASTATIN 40 MG TAB PO SCH (20:44)
[2022-06-06] MEDS: INSULIN -REGULAR HUMAN 50 UNIT/0.5 ML ML SQ SCH ×3 (07:30→16:30)
[2022-06-06] MEDS: FOLIC ACID 1 MG TABLET PO SCH (08:23)
[2022-06-06] MEDS: ENOXAPARIN 40 MG/0.4 ML SQ SCH (08:23)
[2022-06-06] MEDS: SERTRALINE HCL 50 MG TAB PO SCH (08:23)
[2022-06-06] MEDS: LEVOTHYROXINE SOD 0.05 MG TABLET PO SCH (08:24)
[2022-06-06] MEDS: ASPIRIN EC 81 MG TAB PO SCH (08:24)
[2022-06-06] MEDS: CLOPIDOGREL 75 MG TABLET PO SCH (08:24)
[2022-06-06] MEDS: FERROUS SULFATE 325 MG TAB PO SCH (08:24)
[2022-06-06 08:30] LABS: Magnesium 2.3 mg/dL (1.8-2.4); Potassium 3.2 mmol/L (3.5-5.1)
[2022-06-06] MEDS ORDERED: POTASSIUM CL SA 10 MEQ TAB PO ONE (10:05)
[2022-06-06] MEDS: HYDRALAZINE HCL 20 MG/ML VIAL IV PRN (11:33)
[2022-06-06 16:04] VITALS: BP 175/61; TEMP 97.2
--- NOTE | 2022-06-09 10:42 | P.DS ---
Discharge Date: 06/06/22 Disposition: TRANSFER TO SNF - REHAB Discharge Condition: GOOD Reason for Admission: Syncope Brief History of Present Illness: Ms. Kyung Bonilla is a 86 year old female who has a past medical history of advanced dementia, multiple transient ischemic attacks, type 2 diabetes mellitus, hypertension, and hypothyroidism who presents to the [facility] Emergency Department for an episode of syncope. She has fairly advanced dementia at baseline, so history is provided by her daughter, who is at bedside. It appears that, yesterday evening around 23:00, she had an episode of syncope while in the shower. The fall was unwitnessed, but she believes that she hit her head. She denies any preceding symptoms. She denies any obvious inciting or alleviating factors. She was not given any medications prior to arrival. On review of systems, denies any fevers, chills, headaches, dizziness, weakness, chest pain, palpitations, shortness of breath, wheezing, cough, abdominal pain, nausea/vomiting, diarrhea, constipation, hematochezia, melena, dysuria, hematuria, myalgia, or any other symptoms. She presented to the Emergency Department for further evaluation. Upon presentation, her vital signs were stable. Her laboratory studies were notable for potassium of 3.2. Blood cultures x 2 were obtained. EKG revealed sinus rhythm without STEMI criteria. Urinalysis revealed trace blood, positive nitrite, 1+ leukocyte esterase, 20-50 WBC, and loaded bacteria. CT head/cervical spine revealed, "no hemorrhage, edema or acute intracranial finding. CT head findings are similar to February study. Cervical spine degenerative change as detailed. This is similar to comparison with no acute findings seen." Chest x- ray revealed, "underinflated lungs without acute process delineated." She was admitted to the General Internal Medicine service for further evaluation. Hospital Course: Patient's work-up was completely unremarkable. Family decided to send patient to a shelter facility as patient needed strengthening prior to coming home. They are also contemplating patient staying at the [facility] if her strength is not improved. Patient is doing well. At this time, patient is stable for discharge with outpatient follow-up. Vital Signs/Physical Exam: Temp Pulse Resp BP Pulse Ox 97.2 F 66 16 175/61 H 95 06/06/22 16:00 06/06/22 16:00 06/06/22 16:00 06/06/22 16:00 06/06/22 16:00 General: Alert, In no apparent distress, Oriented x3 Laboratory Data at Discharge: WBC 3.1 K/uL (4.3-10.9) L 06/03/22 04:07 Hgb 12.1 g/dL (12.0-15.0) 06/03/22 04:07 Hct 37.3 % (36.0-45.0) 06/03/22 04:07 Plt Count 235 K/uL (152-406) 06/03/22 04:07 Sodium 141 mmol/L (136-145) 06/06/22 07:46 Potassium 3.7 mmol/L (3.5-5.1) 06/06/22 17:00 BUN 19 mg/dL (7-18) H 06/06/22 07:46 Creatinine 0.79 mg/dL (0.55-1.3) 06/06/22 07:46 Glucose 140 mg/dL (74-106) H 06/06/22 07:46 Phosphorus 4.1 mg/dL (2.5-4.9) 06/01/22 03:34 Magnesium 2.3 mg/dL (1.8-2.4) 06/06/22 07:46 Total Bilirubin 0.2 mg/dL (0.2-1.0) 06/01/22 03:34 AST 16 U/L (15-37) 06/01/22 03:34 ALT 19 U/L (12-78) 06/01/22 03:34 Alkaline Phosphatase 66 U/L (45-117) 06/01/22 03:34 Home Medications: Clopidogrel Bisulfate [Plavix*] 1 tab PO DAILY 03/26/20 Levothyroxine Sodium 1 tab PO DAILY 03/26/20 NIFEdipine [Nifedipine ER] 1 tab PO BID 03/26/20 Sertraline [Zoloft*] 1 tab PO BID 03/26/20 Trimethoprim 100 mg PO DAILY 10/20/21 Aspirin [Aspirin EC 81 MG] 81 mg PO DAILY 30 Days #30 tablet. 10/23/21 Atorvastatin Calcium [Lipitor] 40 mg PO BEDTIME tab 10/23/21 Amlodipine [Norvasc*] 5 mg PO BEDTIME 05/31/22 Carvedilol [Coreg] 12.5 mg PO BID 05/31/22 Hydrocodone/Acetaminophen [Hydrocodone-Acetamin 5-325 mg] 1 tab PO TID 05/31/22 Pramipexole [Mirapex*] 0.5 mg PO BEDTIME 05/31/22 Amox/K Clav [Augmentin 600 MG/5 ML Susp] 5 ml PO BID #100 ml 06/06/22 Enoxaparin Sodium [Lovenox 40 MG INJ*] 40 mg SQ DAILY #7 syr 06/06/22 Ferrous Sulfate [Ferrous Sulfate*] 325 mg PO DAILY #30 tab 06/06/22 Melatonin 5 mg PO BEDTIME PRN PRN #30 tablet 06/06/22 New Medications: Amox/K Clav [Augmentin 600 MG/5 ML Susp] 5 ml PO BID #100 ml Ferrous Sulfate [Ferrous Sulfate*] 325 mg PO DAILY #30 tab Enoxaparin Sodium [Lovenox 40 MG INJ*] 40 mg SQ DAILY #7 syr Melatonin 5 mg PO BEDTIME PRN PRN #30 tablet PRN Reason: Insomnia Physician Discharge Instructions: -DC IV and DC to [facility] -Follow-up with PCP in 1 to 2 weeks -Follow-up with neurology in 1 to 2 weeks eks -Follow-up with Cardiology in 1 to 2 weeks -Please call Dr. Coleman at [phone] if any questions regarding hospital stay -Please call nursing station at [phone] if any nursing or medication questions -Return to the emergency room if symptoms worsen Diet: ADA Activity: Fall precautions Followup: Unknown,U [Primary Care Provider] - Time spent managing pt's care (in minutes): 35
== END 2022-06-06 17:30 | DRG 689 ==
LOC: ER 11:33 → ERHOLD 14:31 → 4TH 19:44 → OBSVTOIN 06-01 15:21
PROVIDERS: ADMIT Internal Medicine; ATTEND Internal Medicine
DX: N39.0 Urinary tract infection, site not specified (principal); U07.1 COVID-19; B96.20 Unspecified Escherichia coli [E. coli] as the cause of diseases classified elsewhere; R55 Syncope and collapse; F03.90 Unspecified dementia, unspecified severity, without behavioral disturbance, psychotic disturbance, mood disturbance, and anxiety; E11.9 Type 2 diabetes mellitus without complications; I10 Essential (primary) hypertension; E03.9 Hypothyroidism, unspecified; D50.9 Iron deficiency anemia, unspecified; Z91.81 History of falling; Z86.73 Personal history of transient ischemic attack (TIA), and cerebral infarction without residual deficits; E78.5 Hyperlipidemia, unspecified
CPT/HCPCS: 36415; 70450; 71045; 72125; 80048; 80053; 81003; 81015; 82947; 83735; 84100; 84132; 84484; 85025; 85027; 86850; 86900; 86901; 87077; 87086; 87088; 87186; 93005; 93306; 97110; 97116; 97161; 97165; 97530; 99285; G0378; J0360; J1650; J1815; U0003